=== PATIENT | male | born 1940 | race Caucasian/White ===

== ENCOUNTER 2023-06-19 04:13 | Inpatient (IN) | payer MEDICARE, OTHER ==
[2023-06-19 04:35] LABS: Glucose,Whole Blood 104 mg/dL (70-110)
[2023-06-19] MEDS ORDERED: IPRATROPIUM-ALBUTEROL 3 ML NEB INHALATION STA (04:35)
[2023-06-19] MEDS ORDERED: fentaNYL (PF) 50 MCG/ML 2 ML AMP IVP STA (04:41)
--- NOTE | 2023-06-19 04:59 | ED ---
Fall HPI - General Chief Complaint: Fall Stated Complaint: Fall Time Seen by Provider: 06/19/23 04:30 Source: patient, EMS Mode of arrival: EMS - History of Present Illness Initial Comments: 83-year-old male with past medical history of possible dementia, nicotine abuse who presents to the emergency department for possible hip fracture. Patient was found outside in a small ditch. He was complaining of left hip pain. He had told fire that he was from [place] however they were able to identify the man and noted that he was approximately half mile from his residence. Son does present to the emergency department and states that his dad does have some confusion at baseline however the confusion gets significantly worse in the evening after he takes a sleeping medication. Patient had awoke around 1:30 AM and was restless. Son was able to get back in the bed. He then went to sleep himself. He was awoken at 4:00 this morning when please called in to say that his father had gotten out of the house and was found in a ditch. Patient is able to answer some questions appropriately. Denies any head or neck pain. Does admit to low back pain. EMS gave him 4 mg of Zofran for his nausea but did not provide any pain medications. Patient is found to be hypoxic upon presentation. No use of oxygen at home. No other alleviating, precipitating or modifying factors - Related Data Home Medications Medication Instructions Recorded Confirmed Candesartan [Atacand] 16 mg PO HS 06/19/23 06/19/23 Doxazosin [Cardura] 4 mg PO HS 06/19/23 06/19/23 Eszopiclone 3 mg PO HS 06/19/23 06/19/23 Simvastatin [Zocor] 10 mg PO HS 06/19/23 06/19/23 Allergies Allergy/AdvReac Type Severity Reaction Status Date / Time No Known Allergies Allergy Unverified 06/19/23 06:50 Review of Systems ROS Statement: Those systems with pertinent positive or pertinent negative responses have been documented in the HPI. ROS Other: All systems not noted in ROS Statement are negative. Past Medical History Past Medical History: Unable to Obtain History of Any Multi-Drug Resistant Organisms: Unobtainable Past Surgical History: Unable to Obtain Past Psychological History: Unable to Obtain Smoking Status: Unknown if ever smoked Past Alcohol Use History: Unable to Obtain Past Drug Use History: Unable to Obtain General Exam Limitations: altered mental status General appearance: alert, other (in pain) Head exam: Present: atraumatic, normocephalic, normal inspection Eye exam: Present: conjunctival injection (left eye with exudate) Neck exam: Present: normal inspection. Absent: tenderness, meningismus, lymphadenopathy Respiratory exam: Present: decreased breath sounds, other (coarse breath sounds bilaterally) Cardiovascular Exam: Present: normal rhythm, tachycardia GI/Abdominal exam: Present: soft, normal bowel sounds. Absent: distended, tenderness, guarding, rebound, rigid Extremities exam: Present: other (tenderness to left hip. left leg is shortened and rotated. 2+ DP and PT pulses) Course Vital Signs 06/19/23 06/19/23 06/19/23 04:26 04:39 04:45 Temperature 97.2 F L Pulse Rate 113 H 104 H 108 H Respiratory 22 Rate Blood Pressure 129/69 O2 Sat by Pulse 95 Oximetry 06/19/23 06/19/23 06/19/23 06:08 07:15 08:23 Temperature Pulse Rate 113 H 111 H Respiratory 24 20 Rate Blood Pressure 122/64 115/54 O2 Sat by Pulse 92 L 92 L 90 L Oximetry 06/19/23 08:31 Temperature Pulse Rate 111 H Respiratory 20 Rate Blood Pressure 104/53 O2 Sat by Pulse 89 L Oximetry - Reevaluation(s) Reevaluation #1: Spoke with Dr. Ceballos. Patient is a better candidate for a medicine admission 06/19/23 07:37 Medical Decision Making - Medical Decision Making Was pt. sent in by a medical professional or institution (, PA, PLANT MACHINIST, urgent care, hospital, or usp...) When possible be specific @ -[No] Did you speak to anyone other than the patient for history (EMS, parent, family, police, friend...)? What history was obtained from this source @ -EMS and son Did you review nursing and triage notes (agree or disagree)? Why? @ -[I reviewed and agree with nursing and triage notes] Were old charts reviewed (outside hosp., previous admission, EMS record, old EKG, old radiological studies, urgent care reports/EKG's, usp records)? Report findings @ -[No old charts were reviewed] Differential Diagnosis (chest pain, altered mental status, abdominal pain women, abdominal pain men, vaginal bleeding, weakness, fever, dyspnea, syncope, headache, dizziness, GI bleed, back pain, seizure, CVA, palpatations, mental health, musculoskeletal)? @ -Differential Altered Mental Status: Hypoglycemia, DKA, hypercapnia, ETOH, overdose, CO poisoning, trauma, myxedema coma, HTN encephalopathy, infection, encephalitis, psychosis, intercranial hemorrhage, hepatic encephalopathy, meningitis, CVA, this is not meant to be an all-inclusive list EKG interpreted by me (3pts min.). @ -Yes and demonstrates sinus tachycardia with a rate of 105. OR of 185. QRS 90. QTC 393. No acute ST segment elevations or depressions X-rays interpreted by me (1pt min.). @ -yes, XR Hip demonstrates left hip fracture CT interpreted by me (1pt min.). @ -CT of the brain demonstrates no acute intracranial process U/S interpreted by me (1pt. min.). @ -[None done] What testing was considered but not performed or refused? (CT, X-rays, U/S, labs)? Why? @ -Yes and family wants the patient did be a full code What meds were considered but not given or refused? Why? @ -[None] Did you discuss the management of the patient with other professionals (professionals i.e. , PA, PLANT MACHINIST, lab, RT, psych nurse, social services specialist, rpg programmer analyst, teacher, admitting officer, home health care case manager)? Give summary @ -Dr. Ceballos and Dr. Shelton Was smoking cessation discussed for >3mins.? @ -[No] Was critical care preformed (if so, how long)? @ -[No] Were there social determinants of health that impacted care today? How? (Homelessness, low income, unemployed, alcoholism, drug addiction, transportation, low edu. Level, literacy, decrease access to med. care, long term, rehab)? @ -dementia Was there de-escalation of care discussed even if they declined (Discuss DNR or withdrawal of care, Hospice)? DNR status @ -[No] What co-morbidities impacted this encounter? (DM, HTN, Smoking, COPD, CAD, Cancer, CVA, ARF, Chemo, Hep., AIDS, mental health diagnosis, sleep apnea, morbid obesity)? @ -[None] Was patient admitted / discharged? Hospital course, mention meds given and route, prescriptions, significant lab abnormalities, going to OR and other pertinent info. @ -Upon arrival patient was placed into room 5. A thorough history and physical exam was performed. I did obtain history from EMS. Son does present to the hospital and is able to provide further information. He has visible injury to the left hip. Patient is otherwise answering questions mostly appropriately. He is given 50 g of fentanyl. X-rays are performed of the patient's chest, pelvis, left hip. CAT scan was performed of the patient's brain and neck without acute injury or intracranial process. Results are discussed with the patient. I called and spoke with Dr. Ceballos. Patient will be admitted to medicine with orthopedics on consult. Accepting admitting physician is Dr. Shelton Undiagnosed new problem with uncertain prognosis? @ -yes Drug Therapy requiring intensive monitoring for toxicity (Heparin, Nitro, Insulin, Cardizem)? @ -[No] Were any procedures done? @ -[No] Diagnosis/symptom? @ -acute fall, left hip fracture Acute, or Chronic, or Acute on Chronic? @ -acute Uncomplicated (without systemic symptoms) or Complicated (systemic symptoms)? @ -complicated Side effects of treatment? @ -[No] Exacerbation, Progression, or Severe Exacerbation? @ -[No] Poses a threat to life or bodily function? How? (Chest pain, [place], [place], pneumonia, PE, COPD, DKA, ARF, appy, cholecystitis, CVA, Diverticulitis, Homicidal, Suicidal, threat to staff... and all critical care pts) @ -[No] - Lab Data Result diagrams: 06/19/23 04:54 06/19/23 04:54 Lab Results 06/19/23 06/19/23 06/19/23 Range/Units 04:34 04:54 04:54 WBC 12.1 H (3.8-10.6) k/uL RBC 4.29 L (4.30-5.90) m/uL Hgb 13.0 (13.0-17.5) gm/dL Hct 39.7 (39.0-53.0) % MCV 92.4 (80.0-100.0) fL MCH 30.3 (25.0-35.0) pg MCHC 32.7 (31.0-37.0) g/dL RDW 13.2 (11.5-15.5) % Plt Count 203 (150-450) k/uL MPV 7.5 Neutrophils % 82 % Lymphocytes % 9 % Monocytes % 6 % Eosinophils % 1 % Basophils % 0 % Neutrophils # 10.0 H (1.3-7.7) k/uL Lymphocytes # 1.1 (1.0-4.8) k/uL Monocytes # 0.7 (0-1.0) k/uL Eosinophils # 0.1 (0-0.7) k/uL Basophils # 0.0 (0-0.2) k/uL PT 10.6 (9.0-12.0) sec INR 1.0 (<1.2) APTT 22.2 (22.0-30.0) sec Sodium (137-145) mmol/L Potassium (3.5-5.1) mmol/L Chloride (98-107) mmol/L Carbon Dioxide (22-30) mmol/L Anion Gap mmol/L BUN (9-20) mg/dL Creatinine (0.66-1.25) mg/dL Est GFR (CKD-EPI)AfAm (>60 ml/min/1.73 sqM) Est GFR (CKD-EPI)NonAf (>60 ml/min/1.73 sqM) Glucose (74-99) mg/dL POC Glucose (mg/dL) 104 (70-110) mg/dL POC Glu Assistant Professor Of Philosophy ID Adam Agarwal Calcium (8.4-10.2) mg/dL Total Bilirubin (0.2-1.3) mg/dL AST (17-59) U/L ALT (4-49) U/L Alkaline Phosphatase (38-126) U/L Creatine Kinase (55-170) U/L Troponin I (0.000-0.034) ng/mL Total Protein (6.3-8.2) g/dL Albumin (3.5-5.0) g/dL Serum Alcohol mg/dL 06/19/23 06/19/23 Range/Units 04:54 04:54 WBC (3.8-10.6) k/uL RBC (4.30-5.90) m/uL Hgb (13.0-17.5) gm/dL Hct (39.0-53.0) % MCV (80.0-100.0) fL MCH (25.0-35.0) pg MCHC (31.0-37.0) g/dL RDW (11.5-15.5) % Plt Count (150-450) k/uL MPV Neutrophils % % Lymphocytes % % Monocytes % % Eosinophils % % Basophils % % Neutrophils # (1.3-7.7) k/uL Lymphocytes # (1.0-4.8) k/uL Monocytes # (0-1.0) k/uL Eosinophils # (0-0.7) k/uL Basophils # (0-0.2) k/uL PT (9.0-12.0) sec INR (<1.2) APTT (22.0-30.0) sec Sodium 141 (137-145) mmol/L Potassium 4.3 (3.5-5.1) mmol/L Chloride 107 (98-107) mmol/L Carbon Dioxide 27 (22-30) mmol/L Anion Gap 7 mmol/L BUN 17 (9-20) mg/dL Creatinine 0.95 (0.66-1.25) mg/dL Est GFR (CKD-EPI)AfAm 85 (>60 ml/min/1.73 sqM) Est GFR (CKD-EPI)NonAf 74 (>60 ml/min/1.73 sqM) Glucose 116 H (74-99) mg/dL POC Glucose (mg/dL) (70-110) mg/dL POC Glu Assistant Professor Of Philosophy ID Calcium 8.4 (8.4-10.2) mg/dL Total Bilirubin 0.6 (0.2-1.3) mg/dL AST 36 (17-59) U/L ALT 23 (4-49) U/L Alkaline Phosphatase 32 L (38-126) U/L Creatine Kinase 244 H (55-170) U/L Troponin I 0.018 (0.000-0.034) ng/mL Total Protein 6.7 (6.3-8.2) g/dL Albumin 3.8 (3.5-5.0) g/dL Serum Alcohol <10 mg/dL Disposition Clinical Impression: Fall, Fracture of femoral neck, left, Hypoxia, Pneumonia, Nicotine dependence, Encephalopathy acute Disposition: ADMITTED IP TO THIS HOSP Condition: Serious Is patient prescribed a controlled substance at d/c from ED?: No Time of Disposition: 07:40 Decision to Admit Reason: Admit from EC Decision Date: 06/19/23 Decision Time: 07:40
[2023-06-19 05:02] LABS: Basophils % (A) 0 %; Eosinophils # (A) 0.1 k/uL (0-0.7); Eosinophils % (A) 1 %; HCT 39.7 % (39.0-53.0); Lymphocytes # (A) 1.1 k/uL (1.0-4.8); Lymphocytes % (A) 9 %; MCH 30.3 pg (25.0-35.0); MCHC 32.7 g/dL (31.0-37.0); MCV 92.4 fL (80.0-100.0); Mean Platelet Volume 7.5; Monocytes # (A) 0.7 k/uL (0-1.0); Monocytes % (A) 6 %; Neutrophils % (A) 82 %; Platelet Count 203 k/uL (150-450); RBC 4.29 m/uL (4.30-5.90); RDW 13.2 % (11.5-15.5); WBC 12.1 k/uL (3.8-10.6)
[2023-06-19] MEDS ORDERED: HYDROmorphone 1 MG/ML 1 ML SYRINGE IVP STA (05:18)
[2023-06-19 05:32] LABS: ALT 23 U/L (4-49); AST 36 U/L (17-59); African American GFR (CKD) 85 (>60 ml/min/1.73 sqM); Albumin 3.8 g/dL (3.5-5.0); Alcohol <10 mg/dL; Alkaline Phosphatase 32 U/L (38-126); Anion Gap 7 mmol/L; Blood Urea Nitrogen 17 mg/dL (9-20); Calcium 8.4 mg/dL (8.4-10.2); Carbon Dioxide 27 mmol/L (22-30); Chloride 107 mmol/L (98-107); Creatine Kinase 244 U/L (55-170); Glucose 116 mg/dL (74-99); Non-African American GFR(CKD) 74 (>60 ml/min/1.73 sqM); Potassium 4.3 mmol/L (3.5-5.1); Sodium 141 mmol/L (137-145); Total Bilirubin 0.6 mg/dL (0.2-1.3); Total Protein 6.7 g/dL (6.3-8.2)
[2023-06-19 06:09] LABS: Partial Thromboplastin Time 22.2 sec (22.0-30.0); Prothrombin Time 10.6 sec (9.0-12.0)
--- NOTE | 2023-06-19 06:53 | XR ---
EXAMINATION TYPE: XR chest 1V portable DATE OF EXAM: 06/19/2023 6:00 AM COMPARISON: None TECHNIQUE: XR chest 1V portable Portable AP radiograph of the chest. CLINICAL INDICATION:Male, 83 years old with history of altered mental status; FINDINGS: Lungs/Pleura: No pleural effusion or pneumothorax. Patchy bilateral upper lung reticular opacities. H yperinflation. Senescent parenchyma change. Pulmonary vascularity: Unremarkable. Heart/mediastinum: Cardiomediastinal silhouette is unremarkable. Atherosclerotic calcifications are seen in the aorta. Musculoskeletal: No acute osseous pathology. IMPRESSION: 1. Patchy bilateral upper lung reticular opacities. Correlate for atypical pneumonia. 2. COPD changes.
--- NOTE | 2023-06-19 06:56 | XR ---
EXAMINATION TYPE: XR pelvis AP view DATE OF EXAM: 06/19/2023 6:00 AM INDICATION: Patient age:Male; 83 years old; Reason for study: found down; PHH. COMPARISON: None TECHNIQUE: The pelvis was examined in a single projection. FINDINGS: Acute mildly displaced fracture of the left proximal femoral neck. There is some shortening identified. No dislocation. Moderate bilateral osteoarthritic changes of both hips with medial and s uperior joint space narrowing with acetabular sclerosis and marginal osteophytosis. There is no soft tissue abnormality. No abnormal calcifications are present. Multilevel degenerative changes of the l ower spine. Levoscoliotic curvature of the visualized lumbar spine. Vascular sclerosis. IMPRESSION: 1. Acute mildly displaced fracture of the left proximal femoral neck. No dislocation. 2. Moderate osteoarthritic changes of both hips.
--- NOTE | 2023-06-19 06:58 | XR ---
EXAMINATION TYPE: XR Hip Complete LT DATE OF EXAM: 06/19/2023 6:00 AM INDICATION: Patient age:Male; 83 years old; Reason for study: fall, pain; PHH. COMPARISON: Pelvic radiograph the same date TECHNIQUE: The left hip was examined in the frontal and lateral projections. FINDINGS: Acute mildly displaced left proximal femoral neck fracture with shortening. Mild overlying soft tissue edema. Moderate osteoarthritic changes of the left hip with joint space narrowing, sclero sis, marginal asbestosis. No dislocation. Vascular sclerosis. IMPRESSION: Acute mildly displaced left proximal femoral neck fracture.
--- NOTE | 2023-06-19 07:00 | XR ---
EXAMINATION TYPE: XR lumbar spine 2 or 3V DATE OF EXAM: 06/19/2023 CLINICAL HISTORY: pain, fall TECHNIQUE: Three views of the lumbar spine are submitted. COMPARISON: None. FINDINGS: There are 5 lumbar type vertebral bodies identified. No acute fracture or dislocation. We will is gre ater curvature of the lumbar spine with apex at L3-L4. Vertebral body heights are within normal limit s. Moderate multilevel degenerative disc disease with disc space narrowing, endplate sclerosis, and a nterior osteophytosis. Multilevel facet arthropathy. The overlying soft tissue appears unremarkable. Atherosclerotic calcification of the aorta. IMPRESSION: 1. No acute fracture or dislocation is seen in the lumbar spine. 2. Moderate multilevel degenerative disc disease and facet arthropathy of the lumbar spine. 3. Levoscoliotic curvature of the lumbar spine.
--- NOTE | 2023-06-19 07:07 | CT ---
EXAMINATION TYPE: CT brain cspine wo con CT DLP: 1385.2 mGycm, Automated exposure control for dose reduction was used. DATE OF EXAM: 06/19/2023 5:34 AM COMPARISON: None available. CLINICAL INDICATION:Male, 83 years old with history of found down, confused; TECHNIQUE: Brain: Multiple axial CT images of the brain were obtained without IV contrast. Coronal and sagittal reformats were also reviewed. Cspine: Axial CT images from the skull base to the inferior aspect of T2 we obtained without intraven ous contrast. Coronal and sagittal reformatted images were also reviewed. FINDINGS: Brain: Extra-axial spaces: No abnormal extra-axial fluid collections. Ventricular system: Within normal limits Cerebral parenchyma: Cerebral atrophy. No acute intraparenchymal hemorrhage or mass effect. The chicas -white junction is well differentiated. Scattered hypoattenuating areas are seen within the white mat ter. Cerebellum: Unremarkable. Mass effect: No evidence of midline shift. Intracranial vasculature: Atherosclerotic calcifications of the intracranial vessels. Soft tissues: Normal. Calvarium/osseous structures: No depressed skull fracture. Paranasal sinuses and mastoid air cells: The mastoid air cells are clear. Mild mucosal thickening of the left maxillary sinus. Visualized orbits: Bilateral aphakia. Scleral calcifications noted. Cervical spine: Fracture: None. Osseous structures: Postsurgical changes from anterior cervical fusion of C5-C7. Hardware appears int act. Multilevel degenerative disc disease changes with endplate spurring and disc osteophyte complex' s. Multilevel facet arthropathy. There is formation involving the C1-C2 articulation. Likely large ge ode involving the dens. Vertebral alignment: Degenerative grade 1 anterolisthesis of C3 on C4, C4 and C5, and C7 on T1. Spinal canal/Neural Foramina: Disc osteophyte complexes at C6-C7 with at least mild spinal canal sten osis. Facet joint uncovertebral joint arthropathy scattered throughout the cervical spine with varyin g degrees of neural foraminal stenosis. Neck soft tissues: Prevertebral soft tissues are within normal limits. Other: The airway is patent. Left upper lobe calcified granuloma. Centrilobular emphysematous changes with biapical pleural-parenchymal scarring. Atherosclerotic calcifications of the bilateral carotid bulbs. IMPRESSION: 1. No acute intracranial process. 2. Nonspecific white matter changes, likely secondary to chronic small vessel ischemic disease. 3. No evidence of cervical spine fracture. 4. Postsurgical changes from ACDF C5-C7. Hardware appears intact. 5. Mild to moderate multilevel degenerative disc disease. 6. COPD changes.
[2023-06-19] MEDS ORDERED: PNEUMONIA PROTOCOL UTILIZED 1 EACH MISC PO PRN (07:45)
[2023-06-19] MEDS ORDERED: AZITHROMYCIN 500 MG in SODIUM CHLORIDE 0.9% 250 ML IVPB STA (07:45)
--- NOTE | 2023-06-19 08:32 | P.HPIM ---
History of Present Illness H&P Date: 06/19/23 Chief Complaint: Altered mental status See 3-year-old white male with known history of COPD chronic smoker who was found in a ditch this morning after he fell and escaped house. He been having altered mental status at home with elements of dementia/delirium. He has normal history of hyperlipidemia hypertension and is long-time smoker of about 50 pack year. The patient fell in addition broke his hip is now admitted for appropriate treatment. Workup in the ER did show pneumonia. History is obtained by the sons are with him today. Review of Systems ROS unobtainable: due to mental status Past Medical History Past Medical History: Unable to Obtain, Hyperlipidemia, Hypertension, Memory I mpairment History of Any Multi-Drug Resistant Organisms: Unobtainable Past Surgical History: Unable to Obtain Past Psychological History: Unable to Obtain Smoking Status: Unknown if ever smoked Past Alcohol Use History: Unable to Obtain Past Drug Use History: Unable to Obtain Medications and Allergies Home Medications Medication Instructions Recorded Confirmed Type Candesartan [Atacand] 16 mg PO HS 06/19/23 06/19/23 History Doxazosin [Cardura] 4 mg PO HS 06/19/23 06/19/23 History Eszopiclone 3 mg PO HS 06/19/23 06/19/23 History Simvastatin [Zocor] 10 mg PO HS 06/19/23 06/19/23 History Allergies Allergy/AdvReac Type Severity Reaction Status Date / Time No Known Allergies Allergy Unverified 06/19/23 06:50 Physical Exam Vitals: Vital Signs Temp Pulse Resp BP Pulse Ox 06/19/23 07:15 111 H 20 115/54 92 L 06/19/23 06:08 113 H 24 122/64 92 L 06/19/23 04:45 108 H 06/19/23 04:39 104 H 06/19/23 04:26 97.2 F L 113 H 22 129/69 95 Intake and Output 06/18/23 06/19/23 06/19/23 22:59 06:59 14:59 Other: Weight 58.967 kg - Constitutional General appearance: mild distress, thin - EENT Eyes: no abnormal pupil - Neck Neck: no lymphadenopathy - Respiratory Respiratory: bilateral: rhonchi - Cardiovascular Rhythm: regular Heart sounds: normal: S1, S2 Abnormal Heart Sounds: no S3 Gallop - Gastrointestinal General gastrointestinal: soft, no tenderness - Integumentary Integumentary: no cellulitis - Psychiatric Psychiatric: no A&O x's 3 Results CBC & Chem 7: 06/19/23 04:54 06/19/23 04:54 Labs: Abnormal Lab Results - Last 24 Hours (Table) 06/19/23 06/19/23 Range/Units 04:54 04:54 WBC 12.1 H (3.8-10.6) k/uL RBC 4.29 L (4.30-5.90) m/uL Neutrophils # 10.0 H (1.3-7.7) k/uL Glucose 116 H (74-99) mg/dL Alkaline Phosphatase 32 L (38-126) U/L Creatine Kinase 244 H (55-170) U/L Assessment and Plan (1) Fall Current Visit: Yes Status: Acute Code(s): W19.XXXA - UNSPECIFIED FALL, INITIAL ENCOUNTER SNOMED Code(s): 5627415 (2) Fracture of femoral neck, left Current Visit: Yes Status: Acute Code(s): S72.002A - FRACTURE OF UNSP PART OF NECK OF LEFT FEMUR, INIT SNOMED Code(s): 2426726 (3) Hypoxia Current Visit: Yes Status: Acute Code(s): R09.02 - HYPOXEMIA SNOMED Code(s): 673478330 (4) Nicotine dependence Current Visit: Yes Status: Acute Code(s): F17.200 - NICOTINE DEPENDENCE, UNSPECIFIED, UNCOMPLICATED SNOMED Code(s): 28276455 (5) Pneumonia Current Visit: Yes Status: Acute Code(s): J18.9 - PNEUMONIA, UNSPECIFIED ORGANISM SNOMED Code(s): 778921424 Plan: Stabilized respiratory status. Start empiric antibiotic treatment for acute acquired pneumonia. Orthopedics has also been consulted. Reconcile medications. Withhold any type of altered mental status side effect drugs. We'll check CBC and CMP in a.m. [facility] hospitalist will be covering for the weekend. Prognosis is guarded. Time with Patient: Greater than 30
[2023-06-19] MEDS: IPRATROPIUM-ALBUTEROL 3 ML NEB INHALATION SCH ×4 (09:03→20:28)
--- NOTE | 2023-06-19 10:39 | CT ---
EXAMINATION TYPE: CT hip LT wo con DATE OF EXAM: 06/19/2023 COMPARISON: Radiograph same day HISTORY: 83-year-old male surgical planning, Left hip pain TECHNIQUE: Contiguous axial scanning of the left hip without IV contrast. Coronal and sagittal recons tructions performed. CT DLP: 345.9 mGycm Automated exposure control for dose reduction was used. FINDINGS: Sigmoid diverticulosis. Severe atherosclerotic changes visualized left iliac artery. Urine distended bladder. Osteopenia. There is an impacted fracture of the left femoral neck. This extends from the subcapital region at th e superior femoral head neck junction and extends obliquely down to a along the inferior margin of th e femoral neck. There is associated impaction and proximal migration. Underlying mild to moderate degenerative changes of the left hip. IMPRESSION: 1. IMPACTED, OBLIQUE FRACTURE OF THE LEFT FEMORAL NECK. THE FRACTURE LINE EXTENDS FROM THE SUBCAPITAL REGION AT THE SUPERIOR FEMORAL HEAD NECK JUNCTION AND EXTENDS OBLIQUELY DOWN TO A BASICERVICAL LOCAT ION. 2. UNDERLYING MILD TO MODERATE LEFT HIP ONLY. 3. OSTEOPENIA.
[2023-06-19] MEDS: PANTOPRAZOLE 40 MG/10 ML VIAL IVP SCH (10:51)
[2023-06-19] MEDS: SODIUM CHLORIDE 0.9% 1,000 ML IV SCH (12:27)
--- NOTE | 2023-06-19 14:24 | P.CNPUL ---
History of Present Illness Consult date: 06/19/23 Reason for consult: dyspnea, COPD History of present illness: 83-year-old male patient with a history of dementia was brought into the emergency department after he was found outside and a small ditch. The patient was found approximately half a mile away from his residence. According to the family, the patient has dementia and episodes of confusion. usually, his symptoms of confusion and dementia get worse at nighttime. He was found in a ditch around 4 AM this morning. Prior to that, he was in his house. Upon arrival to the emergency department, the patient was having hip pain and he was unable to answer questions appropriately. He was given Dilaudid and fentanyl in the emergency department. At the time of my evaluation, the patient was quite somnolent and sleepy. He was unable to answer any questions. A chest x-ray was done and the patient was found to have chronic scarring and a lung apices bilaterally. There is no evidence of any pneumonia. The patient is known to have COPD and the patient was initially placed on 4 L of oxygen nasal cannula and he was brought up to 10 L as the patient was found to be hypoxic. No significant tachypnea. Hemodynamically stable. CAT scan of the brain was done and the patient was found to have no acute process. There was some chronic lung specific white matter changes along with chronic small vessel ischemic changes. No evidence of any cervical spine fracture. Multiple or multilevel degenerative changes involving the cervical spine.X-ray of the lumbosacral spine showed no evidence of any fracture. There was moderate multilevel degenerative disc changes and facet arthropathy of the lumbar spine along with levoscoliosis of the lumbar spine. X-ray of the hip showed a left proximal femoral neck fracture. Computed tomography scan of the head was also done and the patient was found to have a fracture of the left femoral neck and fracture line extending from the subcu region of the superior femoral Neck junction and there was underlying osteopenia. The patient has a WBC count 12.1. Hemoglobin is at 13. Normal cognition profile. Normal electrolytes. Normal troponins. CPK was 244. Alcohol level was negative. Review of Systems ROS unobtainable: due to mental status Past Medical History Past Medical History: Unable to Obtain, Dementia, Hyperlipidemia, Hypertension, Prostate Disorder History of Any Multi-Drug Resistant Organisms: Unobtainable Past Surgical History: Unable to Obtain Past Psychological History: Unable to Obtain Smoking Status: Unknown if ever smoked Past Alcohol Use History: Unable to Obtain Past Drug Use History: Unable to Obtain Medications and Allergies Home Medications Medication Instructions Recorded Confirmed Type Candesartan [Atacand] 16 mg PO HS 06/19/23 06/19/23 History Doxazosin [Cardura] 4 mg PO HS 06/19/23 06/19/23 History Eszopiclone 3 mg PO HS 06/19/23 06/19/23 History Simvastatin [Zocor] 10 mg PO HS 06/19/23 06/19/23 History Allergies Allergy/AdvReac Type Severity Reaction Status Date / Time No Known Allergies Allergy Unverified 06/19/23 06:50 Physical Exam Vitals: Vital Signs Temp Pulse Resp BP Pulse Ox 06/19/23 11:55 93 91/57 97 06/19/23 11:24 101 H 113/56 95 06/19/23 10:52 101 H 91/55 94 L 06/19/23 09:16 112 H 06/19/23 09:05 116 H 06/19/23 08:31 111 H 20 104/53 89 L 06/19/23 08:23 90 L 06/19/23 07:15 111 H 20 115/54 92 L 06/19/23 06:08 113 H 24 122/64 92 L 06/19/23 04:45 108 H 06/19/23 04:39 104 H 06/19/23 04:26 97.2 F L 113 H 22 129/69 95 Intake and Output 06/18/23 06/19/23 06/19/23 22:59 06:59 14:59 Other: Weight 58.967 kg Gen. appearance,, comfortable, under the effect of Dilaudid and fentanyl. The patient is quite lethargic, not following any commands or answering questions at this point in time on 10 L of oxygen nasal cannula Head exam was generally normal. There was no scleral icterus or corneal arcus. Mucous membranes were moist. Neck was supple and without jugular venous distension, thyromegaly, or carotid bruits. Carotids were easily palpable bilaterally. There was no adenopathy. Lungs sounds are diminished bilaterally and the breath sounds are equal and symmetrical. Cardiac exam revealed the PMI to be normally situated and sized. The rhythm was regular and no extrasystoles were noted during several minutes of auscultation. The first and second heart sounds were normal and physiologic splitting of the second heart sound was noted. There were no murmurs, rubs, clicks, or gallops. Abdominal exam revealed normal bowel sounds. The abdomen was soft, non-tender, and without masses, organomegaly, or appreciable enlargement of the abdominal aorta. Extremities shows that the left lower extremity is externally rotated due to underlying hip fracture. Neurologically, moving all 4 extremities and the exam is nonfocal. Pupils are equal and reactive to light. Examination of the skin revealed no evidence of significant rashes, suspicious appearing nevi or other concerning lesions. Results - Laboratory Findings CBC and BMP: 06/19/23 04:54 06/19/23 04:54 PT/INR, D-dimer PT 10.6 sec (9.0-12.0) 06/19/23 04:54 INR 1.0 (<1.2) 06/19/23 04:54 Abnormal lab findings: Abnormal Labs 06/19/23 06/19/23 04:54 04:54 WBC 12.1 H RBC 4.29 L Neutrophils # 10.0 H Glucose 116 H Alkaline Phosphatase 32 L Creatine Kinase 244 H - Diagnostic Findings Chest x-ray: image reviewed Assessment and Plan Plan: Traumatic left femoral neck fracture, post fall Acute hypoxic respiratory failure and the patient is currently on 10 L of oxygen by nasal cannula. Chest x-ray showing biapical scarring and background COPD. The patient was given narcotics for pain control. No clear signs of hypoventilation at this point in time. No clear signs of aspiration. 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 Plan Titrate oxygen flow to maintain a saturation above 90% Limited use of narcotic medications and avoid hypoventilation Patient was started on broad-spectrum antibiotics Continue DuoNeb updrafts [id number] Heparin subcu portably prophylaxis IV fluids with normal saline at rate of 100 mL an hour IV Protonix Orthopedic surgery consultation We'll continue to follow
[2023-06-19] MEDS: LORazepam 2 MG/ML INJ IV PRN (15:44)
[2023-06-19] MEDS ORDERED: LORazepam 2 MG/ML INJ IV SCH (16:00)
[2023-06-19 17:31] LABS: Appearance,Urine Clear (Clear); Bilirubin,Urine Negative (Negative); Blood,Urine Negative (Negative); Color,Urine Yellow; Glucose,Urine (UA) Negative (Negative); Ketones,Urine Negative (Negative); Leukocyte Esterase,Urine Negative (Negative); Nitrite,Urine Negative (Negative); PH, Urine 5.5 (5.0-8.0); Protein,Urine Trace (Negative); Specific Gravity,Urine 1.025 (1.001-1.035); Urobilinogen,Urine <2.0 mg/dL (<2.0)
[2023-06-19] MEDS ORDERED: HEPARIN SODIUM,PORCINE/PF 5,000 UNIT/0.5 ML SYRINGE SQ SCH (21:00)
[2023-06-19] MEDS: LOSARTAN 50 MG TAB PO SCH (21:24)
[2023-06-19] MEDS: ATORVASTATIN 10 MG TAB PO SCH (21:24)
[2023-06-19] MEDS: DOXAZOSIN 4 MG TAB PO SCH (21:24)
[2023-06-20] MEDS: SODIUM CHLORIDE 0.9% 1,000 ML IV SCH ×3 (00:54→17:01)
[2023-06-20] MEDS: HEPARIN SODIUM,PORCINE 5,000 UNIT/ML 1 ML VIAL SQ SCH ×3 (00:58→20:32)
[2023-06-20] MEDS: LORazepam 2 MG/ML INJ IV PRN ×2 (05:02→09:31)
--- NOTE | 2023-06-20 07:37 | P.CNOR ---
History of Present Illness - [facility] Consult date: 06/20/23 History of present illness: The patient is an 83-year-old male who was admitted to internal medicine with multiple medical problems and a left hip fracture. The patient has advanced dementia and is also delirious and was unable to provide any history. All history was obtained from the chart and patient's nurse. Apparently the patient is sleeping pill and wandered out of his house. He fell and was found in a ditch. He was brought into the emergency department where he was found to have a left subcapital femoral neck fracture. He also had oxygen saturations in the 70s requiring oxygen supplementation and pneumonia. Because of his frail state and multiple medical problems he was admitted to internal medicine. Past Medical History Past Medical History: Unable to Obtain, Dementia, Hyperlipidemia, Hypertension, Prostate Disorder History of Any Multi-Drug Resistant Organisms: Unobtainable Past Surgical History: Unable to Obtain Past Psychological History: Unable to Obtain Smoking Status: Unknown if ever smoked Past Alcohol Use History: Unable to Obtain Past Drug Use History: Unable to Obtain Medications and Allergies Home Medications Medication Instructions Recorded Confirmed Type Candesartan [Atacand] 16 mg PO HS 06/19/23 06/19/23 History Doxazosin [Cardura] 4 mg PO HS 06/19/23 06/19/23 History Eszopiclone 3 mg PO HS 06/19/23 06/19/23 History Simvastatin [Zocor] 10 mg PO HS 06/19/23 06/19/23 History Allergies Allergy/AdvReac Type Severity Reaction Status Date / Time No Known Allergies Allergy Unverified 06/19/23 06:50 Physical Examination Patient is resting in bed. He will grimace with pain and open his eyes to command but does not answer any questions. His head is normocephalic and atraumatic. His abdomen is nonobese. There are no obvious deformities of the bilateral upper extremities and right lower extremity. The left lower extremity is shortened and external rotated. There is pain with logroll. There are no lesions or scars over the anterior aspect of the hip. His thigh and calf are soft. Results X-rays and computed tomography scan of the left hip show a subcapital femoral neck fracture superiorly extending into the transcervical region of the neck. There is diffuse osteopenia and degenerative changes within the hip. - Labs Labs: Abnormal Lab Results - Last 24 Hours (Table) 06/19/23 Range/Units 17:08 Urine Protein Trace H (Negative) H & H 06/19/23 Range/Units 04:54 Hgb 13.0 (13.0-17.5) gm/dL Hct 39.7 (39.0-53.0) % Coagulation 06/19/23 Range/Units 04:54 INR 1.0 (<1.2) Result Diagrams: 06/19/23 04:54 06/19/23 04:54 Assessment and Plan Assessment: Acute left femoral neck fracture Advanced dementia Pneumonia COPD Acute respiratory failure Plan: The patient is medically stable and the family wishes to proceed my recommendation would be to address his left femoral neck fracture with a cement ed hemiarthroplasty. This will allow for mobilization and be palliative. Patient is certainly at high risk for surgical complications including perioperative medical complications and . The family has requested cardiac clearance. Once the patient is cleared for surgery we will proceed. In the interim he should remain nonweightbearing on the left lower extremity and should be on bedrest.
[2023-06-20] MEDS: IPRATROPIUM-ALBUTEROL 3 ML NEB INHALATION SCH ×4 (08:05→21:10)
[2023-06-20] MEDS: PANTOPRAZOLE 40 MG/10 ML VIAL IVP SCH (08:36)
[2023-06-20] MEDS: AZITHROMYCIN 500 MG TAB PO SCH (08:36)
--- NOTE | 2023-06-20 08:53 | XR ---
EXAMINATION TYPE: XR chest 1V portable DATE OF EXAM: 06/20/2023 COMPARISON: 06/19/2023 INDICATION: Pneumonia presurgical clearance TECHNIQUE: Single frontal view of the chest is obtained. FINDINGS: The heart size is normal. The pulmonary vasculature is normal. There is some linear opacity at the right base compatible some atelectasis. Increased infiltrates at the right lower lobe. Small right pleural effusion is present. IMPRESSION: 1. Suggestion of a small right pleural effusion. 2. Some linear opacity at the right base can be some developing atelectasis. There is increased infil trate at the left base. Correlate for pneumonia and aspiration pneumonia.
[2023-06-20 09:13] LABS: HCT 38.5 % (39.6-50.0); HGB 11.9 d/dL (13.0-17.0); MCHC 30.9 d/dL (32.0-37.0); Mean Platelet Volume 10.2 FL (9.5-12.2); NRBC Per 100 WBC 0 X 10*3/uL (0.00-0.01); Platelet Count 174 X 10*3/uL (140-440); RBC 3.97 X 10*6/uL (4.40-5.60); RDW 13.2 % (11.5-14.5); WBC 12.52 X 10*3/uL (4.50-10.00)
[2023-06-20 09:22] LABS: ALT 24 U/L (10-49); AST 93 U/L (14-35); Albumin 3.3 d/dL (3.8-4.9); Albumin/Globulin Ratio 1.43 Ratio (1.60-3.17); Alkaline Phosphatase 20 U/L (41-126); BUN/Creat Ratio 16.58 Ratio (12.00-20.00); Blood Urea Nitrogen 19.9 mg/dL (9.0-27.0); Calcium 8.2 mg/dL (8.7-10.3); Carbon Dioxide 27.6 mmol/L (21.6-31.8); Chloride 107 mmol/L (96-109); Globulin 2.3 d/dL (1.6-3.3); Glucose 98 mg/dL (70-110); Potassium 4.9 mmol/L (3.5-5.5); Sodium 144 mmol/L (135-145); Total Bilirubin 0.6 mg/dL (0.3-1.2); Total Protein 5.6 d/dL (6.2-8.2)
[2023-06-20] MEDS: METOPROLOL TARTRATE 25 MG TAB PO SCH ×2 (10:13→20:32)
[2023-06-20] MEDS ORDERED: METOPROLOL TARTRATE 5 MG/5 ML VIAL IVP ONE (10:30)
--- NOTE | 2023-06-20 12:26 | P.CRDCN ---
History of Present Illness History of present illness: HISTORY OF PRESENT ILLNESS: This is a 83-year-old male with a past medical history significant for hypertension, hyperlipidemia, and dementia. Patient does not follow with a box spring maker. We have been asked to see the patient in consultation for cardiac clearance. Patient examined at the bedside. Patient is obtunded and unable to provide any history. Patient's son is at the bedside and providing the majority of the HPI. He states that the patient has advanced dementia. He lives with one of his other sons and got out of the house in the middle of the night and walked over to the neighbor's house. He apparently fell and landed on the concrete. The patient was found to have a left hip fracture and is pending orthopedic surgical intervention. The patient's son denies any history of coronary artery disease, congestive heart failure, or arrhythmia such as atrial fibrillation. EKG reveals sinus mechanism. On telemetry, patient is in sinus rhythm with runs of atrial tachycardia with heart rates going into the [id number]. The patient is currently unable to take oral medications. * Chest xray suggestive of small right pleural effusion. Some linear opacity at the right base can be some developing atelectasis. There is increased infiltrate at the left base. Correlate for pneumonia and aspiration pneumonia. * Laboratory data: WBC 12.5. Hemoglobin 11.9. Platelet count 174. Sodium 144. Potassium 4.9. BUN 19. Creatinine 1.2. Troponin negative 3. ProBNP 382. * Current home cardiac medications include simvastatin 10 mg at night, and Sindi sartan 16mg at HS REVIEW OF SYSTEMS: At the time of my exam: Unable to assess secondary to altered mental status PHYSICAL EXAM: VITAL SIGNS: Reviewed. GENERAL: Well-developed in no acute distress. HEENT: Head is normocephalic. Pupils are equal, round. Sclerae anicteric. Mucous membranes of the mouth are moist. Neck supple. No JVD or thyromegaly LUNGS: Respirations even and unlabored. Lungs essentially clear to auscultation bilaterally. HEART: Regular rate and rhythm. S1 and S2 heard. ABDOMEN: Soft. Nondistended. Nontender. EXTREMITIES: Normal range of motion. No clubbing or cyanosis. Peripheral pulses intact. No lower extremity edema NEUROLOGIC: Obtunded. ASSESSMENT: Left femoral neck fracture, status post fall Acute hypoxic respiratory failure Possible pneumonia Sinus mechanism with runs of atrial tachycardia with heart rates [id number] Hypertension Hyperlipidemia Advanced dementia COPD PLAN: Obtain 2-D echo to assess cardiac structure and function Resume home cardiac medications When patient is able to tolerate oral medications give metoprolol tartrate 25 mg twice a day. Metoprolol tartrate 2.5 mg IV push every 6 hours when necessary as needed for heart rates greater than 120 Recommend transfer to 3 S. as RN on 4S are not able to give IVP metoprolol Patient is at high risk to undergo surgical intervention from a cardiac standpoint. However there are no absolute contraindications. Nurse practitioner note has been reviewed by physician. Signing provider agrees with the documented findings, assessment, and plan of care. Past Medical History Past Medical History: Unable to Obtain, Dementia, Hyperlipidemia, Hypertension, Prostate Disorder History of Any Multi-Drug Resistant Organisms: Unobtainable Past Surgical History: Unable to Obtain Past Psychological History: Unable to Obtain Smoking Status: Unknown if ever smoked Past Alcohol Use History: Unable to Obtain Past Drug Use History: Unable to Obtain Medications and Allergies Home Medications Medication Instructions Recorded Confirmed Type Candesartan [Atacand] 16 mg PO HS 06/19/23 06/19/23 History Doxazosin [Cardura] 4 mg PO HS 06/19/23 06/19/23 History Eszopiclone 3 mg PO HS 06/19/23 06/19/23 History Simvastatin [Zocor] 10 mg PO HS 06/19/23 06/19/23 History Allergies Allergy/AdvReac Type Severity Reaction Status Date / Time No Known Allergies Allergy Unverified 06/19/23 06:50 Physical Exam Vitals: Vital Signs Temp Pulse Pulse Resp BP BP Pulse Ox 06/20/23 12:09 86 06/20/23 10:21 94 L 06/20/23 08:20 92 06/20/23 08:05 89 97 06/20/23 07:42 99.6 F 90 20 118/66 96 06/20/23 02:00 98.2 F 100 17 118/64 100 06/19/23 20:39 102 H 06/19/23 20:31 102 H 06/19/23 19:00 101.2 F H 114 H 17 112/60 98 06/19/23 17:06 104 H 121/66 96 06/19/23 16:23 102 H 06/19/23 16:11 100 06/19/23 15:42 104 H 18 100/69 95 06/19/23 12:35 98 06/19/23 12:24 98 97/56 97 06/19/23 12:23 100 Intake and Output 06/19/23 06/20/23 06/20/23 22:59 06:59 14:59 Output Total 650 Balance -650 Output: Urine 650 Other: Voiding Method Indwelling Catheter Indwelling Catheter Results 06/20/23 05:34 06/20/23 05:34 Cardiac Enzymes 06/20/23 Range/Units 05:34 AST 93 H (14-35) U/L CBC 06/20/23 Range/Units 05:34 WBC 12.52 H (4.50-10.00) X 10*3/uL RBC 3.97 L (4.40-5.60) X 10*6/uL Hgb 11.9 L (13.0-17.0) d/dL Hct 38.5 L (39.6-50.0) % Plt Count 174 (140-440) X 10*3/uL Comprehensive Metabolic Panel 06/20/23 Range/Units 05:34 Sodium 144 (135-145) mmol/L Potassium 4.9 (3.5-5.5) mmol/L Chloride 107 (96-109) mmol/L Carbon Dioxide 27.6 (21.6-31.8) mmol/L BUN 19.9 (9.0-27.0) mg/dL Creatinine 1.2 (0.6-1.5) mg/dL Glucose 98 (70-110) mg/dL Calcium 8.2 L (8.7-10.3) mg/dL AST 93 H (14-35) U/L ALT 24 (10-49) U/L Alkaline Phosphatase 20 L (41-126) U/L Total Protein 5.6 L (6.2-8.2) d/dL Albumin 3.3 L (3.8-4.9) d/dL Current Medications Generic Name Dose Route Start Last Admin Trade Name Freq PRN Reason Stop Dose Admin Albuterol/Ipratropium 3 ml 06/20/23 08:00 06/20/23 12:09 Ipratropium-Albuterol 3 Ml Neb INHALATION 3 ml RT-QID GARY Administration Atorvastatin Calcium 10 mg 06/19/23 21:00 06/19/23 21:24 Atorvastatin 10 Mg Tab PO Not Given HS GARY Azithromycin 500 mg 06/20/23 09:00 06/20/23 08:36 Azithromycin 500 Mg Tab PO 06/21/23 09:01 Not Given DAILY [facility] Protocol Doxazosin Mesylate 4 mg 06/19/23 21:00 06/19/23 21:24 Doxazosin 4 Mg Tab PO Not Given HS GARY Heparin Sodium (Porcine) 5,000 unit 06/19/23 21:00 06/20/23 08:36 Heparin Sodium,Porcine 5,000 Unit/Ml 1 Ml Vial SQ Not Given Q12HR GARY Ceftriaxone Sodium 2 gm/ 50 mls @ 100 mls/hr 06/20/23 09:00 06/20/23 08:36 Sodium Chloride IVPB 06/23/23 09:29 100 mls/hr Q24HR GARY Administration Protocol Sodium Chloride 1,000 mls @ 100 mls/hr 06/19/23 12:30 06/20/23 08:35 Saline 0.9% IV 100 mls/hr .Q10H GARY Administration Lorazepam 1 mg 06/19/23 15:28 06/20/23 09:31 Lorazepam 2 Mg/Ml Inj IV 1 mg Q8HR PRN Administration Agitation Losartan Potassium 100 mg 06/19/23 21:00 06/19/23 21:24 Losartan 50 Mg Tab PO Not Given HS [facility] Metoprolol Tartrate 25 mg 06/20/23 09:45 06/20/23 10:13 Metoprolol Tartrate 25 Mg Tab PO Not Given BID [facility] Metoprolol Tartrate 2.5 mg 06/20/23 12:11 Metoprolol Tartrate 5 Mg/5 Ml Vial IVP Q6HR PRN Heart Rate - HIGH Miscellaneous Information 1 each 06/19/23 07:45 Pneumonia Protocol Utilized 1 Each Misc PO ONCE PRN Per Protocol Pantoprazole Sodium 40 mg 06/19/23 09:00 06/20/23 08:36 Pantoprazole 40 Mg/10 Ml Vial IVP 40 mg DAILY GARY Administration Intake and Output 06/19/23 06/20/23 06/20/23 22:59 06:59 14:59 Output Total 650 Balance -650 Output: Urine 650 Other: Voiding Method Indwelling Catheter Indwelling Catheter 06/20/23 05:34 06/20/23 05:34
--- NOTE | 2023-06-20 13:54 | P.PN ---
Subjective Progress Note Date: 06/20/23 * 83-year-old male patient with a history of dementia was brought into the emergency department after a fall at home * Upon arrival to the emergency department, the patient was having hip pain and he was unable to answer questions appropriately. * The patient has COPD and the patient was initially placed on 4 L of oxygen nasal cannula and he was brought up to 10 L as the patient was found to be hypoxic. * CAT scan of the brain was done and the patient was found to have no acute process. There was some chronic lung specific white matter changes along with chronic small vessel ischemic changes. No evidence of any cervical spine fracture. Multiple or multilevel degenerative changes involving the cervical spine * X-ray of the lumbosacral spine showed no evidence of any fracture. * Computed tomography scan of the head was also done and the patient was found to have a fracture of the left femoral neck and fracture line extending from the subcu region of the superior femoral Neck junction and there was underlying osteopenia. * Consultation obtained from orthopedic, pulmonary medicine and cardiology for preoperative assessment * 06/20>> patient was weaned down to 4 L of oxygen, patient continues to remain disoriented, patient was agitated through the night does have underlying cognitive impairment however does not have a and O's as of dementia. Patient had one episode of atrial tachycardia. We will continue to monitor overnight if oxygen requirements remained stable, and echocardiogram within normal limits okay to proceed with surgery on 06/21, risk of patient getting intubated postprocedure already discussed with patient's son at bedside, at this point delaying surgery more than 24-48 hours with a fracture has a very high mortality hence if patient remains stable we will proceed with surgery on 06/21/23 Objective - Vital Signs Vital signs: Vital Signs Temp 99.6 F 06/20/23 07:42 Pulse 88 06/20/23 12:20 Resp 20 06/20/23 07:42 BP 118/66 06/20/23 07:42 Pulse Ox 94 L 06/20/23 12:13 FiO2 Intake & Output 06/19/23 06/20/23 06/20/23 18:59 06:59 18:59 Output Total 650 Balance -650 Weight 58.967 kg Output: Urine 650 Other: Voiding Method Indwelling Catheter Indwelling Catheter - Exam PHYSICAL EXAMINATION: GENERAL: Ill appearance, disoriented, minimally responsive, breathing maintaining HEENT: Pupils are pinpoint however reactive, discharge noted from eyelids CARDIOVASCULAR: S1 and S2 present. No murmurs, rubs, or gallops. PULMONARY: Nasal cannula in place, no use of accessory muscle, breath sounds equal and symmetrical bilateral ABDOMEN: Soft, nontender, nondistended, normoactive bowel sounds. No palpable organomegaly. MUSCULOSKELETAL: Left pelvic/hip edema NEUROLOGICAL: Patient disoriented, exam limited - Labs CBC & Chem 7: 06/20/23 05:34 06/20/23 05:34 Labs: Abnormal Lab Results - Last 24 Hours (Table) 06/19/23 06/20/23 06/20/23 Range/Units 17:08 05:34 05:34 WBC 12.52 H (4.50-10.00) X 10*3/uL RBC 3.97 L (4.40-5.60) X 10*6/uL Hgb 11.9 L (13.0-17.0) d/dL Hct 38.5 L (39.6-50.0) % MCHC 30.9 L (32.0-37.0) d/dL Calcium 8.2 L (8.7-10.3) mg/dL AST 93 H (14-35) U/L Alkaline Phosphatase 20 L (41-126) U/L Total Protein 5.6 L (6.2-8.2) d/dL Albumin 3.3 L (3.8-4.9) d/dL Albumin/Globulin Ratio 1.43 L (1.60-3.17) Ratio Urine Protein Trace H (Negative) Assessment and Plan Assessment: Assessment and plan * Status post fall with left hip fracture * Acute exacerbation of COPD, with acute hypoxic respiratory failure * Community-acquired pneumonia * Atrial tachycardia paroxysmal * Hypertension * Hyperlipidemia * Cognitive impairment with suspicion for dementia however no official diagnosis * Consult on patient obtained from pulmonary medicine, cardiology for preoperative assessment> echocardiogram pending, weaned down to 4 L of oxygen if patient remains stable okay to proceed with surgery on 06/21 * In regards to acute respiratory failure, continue patient on breathing treatment, continue Rocephin and azithromycin, pulmonary medicine following * In regards to atrial tachycardia patient given 1 dose of IV Lopressor * Patient does have cognitive impairment with agitation when necessary Ativan ordered as needed for acute agitation * Subcu heparin for DVT prophylaxis
[2023-06-20] MEDS ORDERED: METOPROLOL TARTRATE 5 MG/5 ML VIAL IVP PRN (14:06)
--- NOTE | 2023-06-20 16:00 | P.PN ---
Subjective Progress Note Date: 06/20/23 83-year-old male patient with a history of dementia was brought into the emergency department after he was found outside and a small ditch. The patient was found approximately half a mile away from his residence. According to the family, the patient has dementia and episodes of confusion. usually, his symptoms of confusion and dementia get worse at nighttime. He was found in a ditch around 4 AM this morning. Prior to that, he was in his house. Upon arrival to the emergency department, the patient was having hip pain and he was unable to answer questions appropriately. He was given Dilaudid and fentanyl in the emergency department. At the time of my evaluation, the patient was quite somnolent and sleepy. He was unable to answer any questions. A chest x-ray was done and the patient was found to have chronic scarring and a lung apices bilaterally. There is no evidence of any pneumonia. The patient is known to have COPD and the patient was initially placed on 4 L of oxygen nasal cannula and he was brought up to 10 L as the patient was found to be hypoxic. No significant tachypnea. Hemodynamically stable. CAT scan of the brain was done and the patient was found to have no acute process. There was some chronic lung specific white matter changes along with chronic small vessel ischemic changes. No evidence of any cervical spine fracture. Multiple or multilevel degenerative changes involving the cervical spine.X-ray of the lumbosacral spine showed no evidence of any fracture. There was moderate multilevel degenerative disc changes and facet arthropathy of the lumbar spine along with levoscoliosis of the lumbar spine. X-ray of the hip showed a left proximal femoral neck fracture. Computed tomography scan of the head was also done and the patient was found to have a fracture of the left femoral neck and fracture line extending from the subcu region of the superior femoral Neck junction and there was underlying osteopenia. The patient has a WBC count 12.1. Hemoglobin is at 13. Normal cognition profile. Normal electrolytes. Normal troponins. CPK was 244. Alcohol level was negative. On today's evaluation, the patient remains somnolent, lethargic, still unable to communicate. The patient has underlying dementia. The patient is currently down to 4 L of oxygen by nasal cannula. The patient was supposed to undergo surgery today. This was postponed to tomorrow. He is going to undergo a left hip ORIF. He did have an episode of atrial tachycardia for which he was given beta blockers. As mentioned earlier, he has significant cognitive impairments. Is related to his underlying dementia. The white cell count is at 12.5 with a hemoglobin 11.9 and a platelet count of 174. BUN is 19 with a creatinine 1.2 and his sodium levels is 144. UA is negative. Alcohol level is negative. LFTs are normal. CPKs 244. Chest x-ray shows COPD and is also limited bibasilar pulmonary infiltrates and the patient is currently on accommodation of Rocephin and Zithromax. He is also on DuoNeb nebulized treatments [id number]. IV fluids are running at a rate of 100 mL an hour. The patient is running a low- grade fever.The patient was also seen by cardiology. The patient was started on the Toprol 25 mg twice a day. The patient is sinus mechanism with atrial tachycardia and he was given IV Lopressor. Objective - Vital Signs Vital signs: Vital Signs Temp 99.6 F 06/20/23 07:42 Pulse 92 06/20/23 08:20 Resp 20 06/20/23 07:42 BP 118/66 06/20/23 07:42 Pulse Ox 94 L 06/20/23 10:21 FiO2 Intake & Output 06/19/23 06/20/23 06/20/23 18:59 06:59 18:59 Output Total 650 Balance -650 Weight 58.967 kg Output: Urine 650 Other: Voiding Method Indwelling Catheter Indwelling Catheter - Exam Gen. appearance,, comfortable, currently on 4 L of oxygen by nasal cannula. Lethargic, encephalopathic. Head exam was generally normal. There was no scleral icterus or corneal arcus. Mucous membranes were moist. Neck was supple and without jugular venous distension, thyromegaly, or carotid bruits. Carotids were easily palpable bilaterally. There was no adenopathy. Lungs sounds are diminished bilaterally and the breath sounds are equal and symmetrical. Cardiac exam revealed the PMI to be normally situated and sized. The rhythm was regular and no extrasystoles were noted during several minutes of auscultation. The first and second heart sounds were normal and physiologic splitting of the second heart sound was noted. There were no murmurs, rubs, clicks, or gallops. Abdominal exam revealed normal bowel sounds. The abdomen was soft, non-tender, and without masses, organomegaly, or appreciable enlargement of the abdominal aorta. Extremities shows that the left lower extremity is externally rotated due to underlying hip fracture. Neurologically, moving all 4 extremities and the exam is nonfocal. Pupils are equal and reactive to light. Examination of the skin revealed no evidence of significant rashes, suspicious appearing nevi or other concerning lesions. - Labs CBC & Chem 7: 06/20/23 05:34 06/20/23 05:34 Labs: Abnormal Lab Results - Last 24 Hours (Table) 06/19/23 06/20/23 06/20/23 Range/Units 17:08 05:34 05:34 WBC 12.52 H (4.50-10.00) X 10*3/uL RBC 3.97 L (4.40-5.60) X 10*6/uL Hgb 11.9 L (13.0-17.0) d/dL Hct 38.5 L (39.6-50.0) % MCHC 30.9 L (32.0-37.0) d/dL Calcium 8.2 L (8.7-10.3) mg/dL AST 93 H (14-35) U/L Alkaline Phosphatase 20 L (41-126) U/L Total Protein 5.6 L (6.2-8.2) d/dL Albumin 3.3 L (3.8-4.9) d/dL Albumin/Globulin Ratio 1.43 L (1.60-3.17) Ratio Urine Protein Trace H (Negative) Assessment and Plan Plan: Traumatic left femoral neck fracture, post fall Acute hypoxic respiratory failure and the patient is currently on 4 L of oxygen by nasal cannula. Chest x-ray showing biapical scarring and background COPD. The patient was given narcotics for pain control. No clear signs of hypoventilation at this point in time. No clear signs of aspiration. 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 Atrial tachycardia, currently on IV Lopressor [id number] and less tachycardic Encephalopathy with ongoing altered mentation. Fever likely secondary to above Plan Titrate oxygen flow to maintain a saturation above 90%, currently on 4 L Limited use of narcotic medications and avoid hypoventilation Monitor mental status Patient was started on broad-spectrum antibiotics, currently on a combination of Rocephin and Zithromax Continue DuoNeb updrafts [id number] Heparin subcu portably prophylaxis IV fluids with normal saline at rate of 100 mL an hour IV Protonix Orthopedic surgery consultation High risk for developing postoperative pulmonary complications as discussed with the family at the bedside CODE STATUS remains full Echocardiogram Cardiology evaluation We'll continue to follow
[2023-06-20] MEDS: HYDROmorphone 0.5 MG/0.5 ML SYRINGE IVP PRN (16:53)
--- NOTE | 2023-06-20 16:54 | CA ---
Transthoracic Echo Report Name: Zaire Davis Age: 83 Gender: M : 1940 Exam Date: 06/20/2023 09:48 Exam Location: [place] [facility] Ht (in): 68 Wt (lb): 130 Ordering Physician: Lida Dillon Attending/Referring Phys: Analysis Engineer Gretchen Meraz [facility] Procedure CPT: Indications: LV function, surgical clearance Cardiac Hx: Technical Quality: Technically difficult study Contrast 1: Total Dose (mL): Contrast 2: Total Dose (mL): MEASUREMENTS (Male / Female) Normal Values 2D ECHO LV Diastolic Diameter PLAX 3.4 cm 4.2 - 5.9 / 3.9 - 5.3 cm LV Systolic Diameter PLAX 2.5 cm IVS Diastolic Thickness 0.8 cm 0.6 - 1.0 / 0.6 - 0.9 cm LVPW Diastolic Thickness 0.7 cm 0.6 - 1.0 / 0.6 - 0.9 cm LV Relative Wall Thickness 0.4 DOPPLER AV Peak Velocity 95.7 cm/s AV Peak Gradient 3.7 mmHg AV Mean Velocity 74.0 cm/s AV Mean Gradient 2.4 mmHg AV Velocity Time Integral 17.2 cm LVOT Peak Velocity 75.4 cm/s LVOT Peak Gradient 2.3 mmHg LVOT Velocity Time Integral 11.2 cm Mitral E Point Velocity 55.8 cm/s Mitral A Point Velocity 66.4 cm/s Mitral E to A Ratio 0.8 MV Deceleration Time 220.5 ms LV E' Lateral Velocity 15.3 cm/s Mitral E to LV E' Lateral Ratio 3.7 LV E' Septal Velocity 14.0 cm/s Mitral E to LV E' Septal Ratio 4.0 TR Peak Velocity 343.8 cm/s TR Peak Gradient 47.3 mmHg Right Atrial Pressure 15.0 mmHg Pulmonary Artery Systolic Pressu 62.3 mmHg Right Ventricular Systolic Press 62.3 mmHg FINDINGS Left Ventricle Left ventricular wall thickness normal. Small left ventricular cavity. No obvious regional wall motion abnormalities. Left ventricular ejection fraction is estimated at 50-55%. Low normal systolic function. Right Ventricle Right ventricle not well visualized but appears dilated.severe pulmonary hypertension. Right Atrium Right atrium not well visualized but appears dilated. Left Atrium Normal left atrial size. Mitral Valve Structurally normal mitral valve. Mitral valve thickened. No mitral regurgitation. Aortic Valve Trileaflet aortic valve. Aortic valve sclerosis. No aortic regurgitation. Tricuspid Valve Structurally normal tricuspid valve. Moderate tricuspid regurgitation. Pulmonic Valve Pulmonic valve not well visualized. Mild pulmonic regurgitation. Pericardium No pericardial effusion. Aorta Aortic root and proximal ascending aorta not well visualized. CONCLUSIONS Normal LV systolic function Previewed by: Dr. René Vallecillo MD (Electronically Signed) Final Date: 20 June 2023 16:53
[2023-06-20] MEDS: METOPROLOL TARTRATE 5 MG/5 ML VIAL IVP PRN (18:24)
[2023-06-20] MEDS: LOSARTAN 50 MG TAB PO SCH (20:32)
[2023-06-20] MEDS: DOXAZOSIN 4 MG TAB PO SCH (20:32)
[2023-06-20] MEDS: ATORVASTATIN 10 MG TAB PO SCH (20:32)
[2023-06-21] MEDS: HYDROmorphone 0.5 MG/0.5 ML SYRINGE IVP PRN (04:41)
[2023-06-21] MEDS: SODIUM CHLORIDE 0.9% 1,000 ML IV SCH ×2 (04:45→15:55)
[2023-06-21] MEDS: PANTOPRAZOLE 40 MG/10 ML VIAL IVP SCH (07:34)
[2023-06-21] MEDS: METOPROLOL TARTRATE 5 MG/5 ML VIAL IVP PRN (07:34)
[2023-06-21] MEDS ORDERED: TRANEXAMIC ACID 1,000 MG in SODIUM CHLORIDE 0.9% 100 ML IVPB ONE ×2 (07:43→07:44)
[2023-06-21] MEDS ORDERED: ROPIVACAINE/EPI/CLONIDINE/KET 50 ML SYRINGE MISCELLANE PRN (07:46)
[2023-06-21] MEDS: HEPARIN SODIUM,PORCINE 5,000 UNIT/ML 1 ML VIAL SQ SCH ×2 (07:56→20:50)
[2023-06-21] MEDS: METOPROLOL TARTRATE 25 MG TAB PO SCH ×2 (07:58→20:50)
[2023-06-21] MEDS ORDERED: DEXAMETHASONE SOD PHOSPHATE 10 MG/ML 1 ML VIAL ONE (08:06)
[2023-06-21] MEDS ORDERED: ROCURONIUM 10 MG/ML (5 ML VIAL) IV ONE (08:06)
[2023-06-21] MEDS ORDERED: GLYCOPYRROLATE 0.2 MG/ML 2 ML VIAL ONE (08:06)
[2023-06-21] MEDS ORDERED: SUCCINYLCHOLINE CHLORIDE 200 MG/10 ML VIAL IV ONE (08:06)
[2023-06-21] MEDS ORDERED: SODIUM CHLORIDE 0.9% 1,000 ML IV ONE ×2 (08:06→10:54)
[2023-06-21] MEDS ORDERED: NEOSTIGMINE 1 MG/ML 10 ML VIAL ONE (08:06)
[2023-06-21] MEDS ORDERED: PHENYLEPHRINE-0.9% NACL SYG 1,000 MCG/10 ML SYRINGE ONE (08:06)
[2023-06-21] MEDS ORDERED: PROPOFOL 10 MG/ML 20 ML VIAL IV ONE (08:06)
[2023-06-21] MEDS ORDERED: ceFAZolin 1,000 MG VIAL ONE (08:06)
[2023-06-21] MEDS ORDERED: TRANEXAMIC 1,000 MG/100ML-NACL PREMIX BAG ONE (08:06)
[2023-06-21] MEDS ORDERED: KETAMINE 10 MG/ML 20 ML VIAL ONE (08:06)
[2023-06-21] MEDS ORDERED: MIDAZOLAM 2 MG/2 ML VIAL ONE (08:06)
[2023-06-21] MEDS ORDERED: fentaNYL (PF) 50 MCG/ML 2 ML AMP ONE (08:06)
[2023-06-21] MEDS ORDERED: ONDANSETRON 4 MG/2 ML VIAL ONE (08:06)
[2023-06-21] MEDS ORDERED: LIDOCAINE 2% INJ 20 MG/ML (2 ML VIAL) ONE (08:06)
[2023-06-21] MEDS: IPRATROPIUM-ALBUTEROL 3 ML NEB INHALATION SCH ×4 (09:14→20:34)
[2023-06-21] MEDS ORDERED: ceFAZolin 3,000 MG in SODIUM CHLORIDE 0.9% IRRIGATIO 3,000 ML IRRIGATION ONE (09:46)
--- NOTE | 2023-06-21 10:10 | XR ---
Fluoroscopy INDICATION: Pain FINDINGS: Fluoroscopy time: 36 seconds. Total dose area product (DAP) in uGy*m?, mGy*cm? (or similar): 1.16 Images obtained: 7. IMPRESSIONS: 1. Documentation of fluoroscopy.
--- NOTE | 2023-06-21 10:15 | P.OP ---
Date of Procedure: 06/21/23 Preoperative Diagnosis: 1. Left femoral neck fracture 2. Advanced dementia 3. COPD 4. Pneumonia 5. Acute respiratory failure 6. Osteoporosis Postoperative Diagnosis: Same Procedure(s) Performed: Left direct anterior hip hemiarthroplasty Implants: Lee accolade C size #5 high offset stem, bipolar femoral head 28 mm +0 neck inner diameter head, 49 mm outer diameter head Anesthesia: SAROJA, local Surgeon: Jamal Ceballos Chairman And Ceo #1: Shilo Oneal Estimated Blood Loss (ml): 100 IV fluids (ml): 700 Urine output (ml): 150 Pathology: none sent Condition: stable Disposition: PACU Indications for Procedure: I met with the patient and their family to discuss treatment options. The patient has a displaced femoral neck fracture and based on their age, activity level, and medical comorbidities I recommended a hip hemiarthroplasty to facilitate early mobilization. My recommendation was to perform the hemiarthroplasty through a direct anterior approach to help lower the risk of dislocation and improve postoperative recovery and use cemented fixation of the femoral component to reduce the risk of fracture and postoperative thigh pain. We discussed the potential risks and complications of a hemiarthroplasty for displaced femoral neck fracture at length. Risks discussed include are certainly not limited to risks from anesthesia, superficial infection requiring local wound care and possibly surgical debridement, deep periprosthetic joint infection and the treatment for this, damage to local blood vessels or nerves particularly the lateral femoral cutaneous nerve, intraoperative fracture, postoperative periprosthetic fracture, leg length discrepancy, hip dislocation, aseptic loosening, groin pain, thigh pain, progression of arthritis requiring conversion to total hip arthroplasty, complications related to cementing the component, an inability to regain preinjury level of function, DVT, PE, acute coronary event, stroke, pneumonia, urinary tract infection, failure to thrive, and possibly . The patient and their family understand that while these are the most common complications other less common complications are possible. They provided their verbal and written consent to go forward with surgery. Operative Findings: Comminuted can cervical femoral neck fracture starting in the subcapital region superiorly and extending into the transcervical neck inferiorly with no extension into the calcar Description of Procedure: The patient was identified in the preoperative holding area and the correct hip was marked with my initials. I reviewed the procedure and consent with the patient. All of their questions were answered. The patient was then brought back into the operating room by anesthesia. [facility] by the [facility] team. Preoperative antibiotics and tranexamic acid were also given. After the patient was under anesthesia I examined their ankles to determine their preoperative leg length discrepancy. The skin over the anterior aspect of the hip was shaved to remove hair over the site of planned incision. Both feet and ankles were padded with webril and boots for the [place] were applied. The patient was then carefully transferred onto the [place] table. A perineal post was immediately placed. The arms were placed on arm hol ders and were well-padded. Both boots were secured to the spars on the [place] table. The patient was positioned so that the pelvis was centered over the post. Nonsterile drapes were applied. A timeout was performed identifying the correct patient, operative extremity, and procedure. At this point fluoroscopy was brought in to take preoperative images of the pelvis and operative hip. A metallic bar was used to create a bi-ischial line for use as a reference to leg length adjustments during the procedure. Global offset was also measured on both the operative and nonoperative leg. Fluoroscopy was then brought out and a pre-scrub using a chlorhexidine scrub brush was performed. The operative limb was then prepped and draped in the standard sterile fashion. An anterior longitudinal incision was made lateral and distal to the ASIS. The skin and subcutaneous tissues were incised sharply. The underlying tensor fascia was identified and incised in its midportion. The fascia was dissected free from the underlying muscle and the muscle belly was retracted. A blunt tipped cobra retractor was placed over the superior neck under the muscle fibers of the gluteus minimus. The deep enveloping fascia of the tensor was incised. The anterior leash of vessels were then identified and cauterized. The fascia between the rectus and the capsule was then incised and the pre-capsular fat was excised. A second Cobra was placed inferior to the neck. The interval between the rectus and iliocapsularis and the hip capsule was developed and a retractor was placed carefully over the anterior rim of the acetabulum. A T-shaped anterior capsulotomy was performed. A hemarthrosis consistent with a femoral neck fracture was identified. The superior capsular leaflet was left in place in the inferior capsular flap was excised. The Cobra retractors were placed intracapsularly. A displaced femoral neck fracture was then identified. We then made a femoral neck osteotomy according to preoperative and intraoperative templating and confirmed the level of the osteotomy using fluoroscopic imaging. The femoral head was removed, passed off to the back table, and sized. The superior capsular flap was excised. On inspection of the acetabulum there were minimal degenerative changes with intact cartilage. Attention was then turned to the femur. The remnant dorsal lateral capsule was excised. The short external rotators were visible and protected. A bone hook was used to confirm appropriate translation of the trochanter away from the acetabulum. The leg was then extended and adducted and the bone hook was used to elevate the femur for broaching. A box osteotome and blunt tipped canal sound was then utilized to gain access to the femoral canal. We then sequentially broached the femur in appropriate anteversion until torsional stability was achieved and the implant was felt to have reached the appropriate size to allow trialing. The neck cut was brought flush to the trial broach with a calcar planar. A trial neck and head were then placed onto the broach and the hip was atraumatically reduced under direct visualization. External rotation to 90 was performed to assess stability. Fluoroscopy was brought in. An AP and lateral fluoroscopic image of the proximal femur was obtained to assess position and fill of the trial broach. An AP of the pelvis was then obtained and matched to the preoperative image taken. A bi-ischial bar was then placed and measurements were taken to assess changes in length and offset. The hip was then carefully dislocated, the proximal femur was exposed, and the trial implants were removed. The proximal femur was then prepared for cementing. The canal was thoroughly irrigated with pulsatile lavage to remove blood and marrow contents. A cement restrictor was placed to a depth just distal to the tip of the final implant. Epinephrine-soaked gauze was then packed into the proximal femur. 2 bags of cement with antibiotics were then mixed using a centrifuge and placed into a cement gun. Anesthesia was notified that cementing was about to commence to make sure the patient was appropriately ventilated and hydrated. Once the cement had reached appropriate consistency, the cement gun was used to fill the canal in a retrograde fashion starting at the restrictor. Cement was then pressurized into the canal with a blue tipped allergist/immunologist. The stem was then carefully introduced into the cement taking care to guide the implant into appropriate version. The stem was held in position until the cement had fully set. All extra cement was removed while the cement was hardening. The trunnion was cleansed and the final head was tapped into place to engage the Hernandez taper. The acetabulum was irrigated and visualized to be free of debris. The hip was carefully reduced. Stability was checked clinically with external rotation to 90 and there was no evidence of instability. Final fluoroscopic images were taken. The wound was then thoroughly irrigated with Irrisept. 3 L of sterile saline was irrigated through the wound using pulsatile lavage. Local anesthetic cocktail was injected into the soft tissues around the surgical field. A deep drain was placed. The wound was then closed in layers. A sterile dressing was placed over the surgical incision and drain site. The drapes were taken down and the patient was carefully transferred off of the [place] table. Following removal of the boots the leg lengths felt acceptable. The patient was then taken to recovery room having tolerated the procedure well. Shilo Oneal PA-C was required as a skilled printing bindery assistant for patient positioning, surgical exposure, retraction, placement of implants, and closure of the surgical wound. PLAN: The patient can weight-bear as tolerated on the operative extremity. 2 doses of postoperative antibiotics. DVT prophylaxis with aspirin 81 mg twice a day based on preoperative risk stratification. Physical therapy for gait training. Discontinue drain postoperative day #1 if output is less than 100 mL per shift.
[2023-06-21] MEDS ORDERED: NALOXONE 0.4 MG/ML 1 ML VIAL IV PRN (10:22)
--- NOTE | 2023-06-21 11:12 | P.PN ---
Subjective Progress Note Date: 06/21/23 83-year-old male patient with a history of dementia was brought into the emergency department after he was found outside and a small ditch. The patient was found approximately half a mile away from his residence. According to the family, the patient has dementia and episodes of confusion. usually, his symptoms of confusion and dementia get worse at nighttime. He was found in a ditch around 4 AM this morning. Prior to that, he was in his house. Upon arrival to the emergency department, the patient was having hip pain and he was unable to answer questions appropriately. He was given Dilaudid and fentanyl in the emergency department. At the time of my evaluation, the patient was quite somnolent and sleepy. He was unable to answer any questions. A chest x-ray was done and the patient was found to have chronic scarring and a lung apices bilaterally. There is no evidence of any pneumonia. The patient is known to have COPD and the patient was initially placed on 4 L of oxygen nasal cannula and he was brought up to 10 L as the patient was found to be hypoxic. No significant tachypnea. Hemodynamically stable. CAT scan of the brain was done and the patient was found to have no acute process. There was some chronic lung specific white matter changes along with chronic small vessel ischemic changes. No evidence of any cervical spine fracture. Multiple or multilevel degenerative changes involving the cervical spine.X-ray of the lumbosacral spine showed no evidence of any fracture. There was moderate multilevel degenerative disc changes and facet arthropathy of the lumbar spine along with levoscoliosis of the lumbar spine. X-ray of the hip showed a left proximal femoral neck fracture. Computed tomography scan of the head was also done and the patient was found to have a fracture of the left femoral neck and fracture line extending from the subcu region of the superior femoral Neck junction and there was underlying osteopenia. The patient has a WBC count 12.1. Hemoglobin is at 13. Normal cognition profile. Normal electrolytes. Normal troponins. CPK was 244. Alcohol level was negative. On today's evaluation, the patient remains somnolent, lethargic, still unable to communicate. The patient has underlying dementia. The patient is currently down to 4 L of oxygen by nasal cannula. The patient was supposed to undergo surgery today. This was postponed to tomorrow. He is going to undergo a left hip ORIF. He did have an episode of atrial tachycardia for which he was given beta blockers. As mentioned earlier, he has significant cognitive impairments. Is related to his underlying dementia. The white cell count is at 12.5 with a hemoglobin 11.9 and a platelet count of 174. BUN is 19 with a creatinine 1.2 and his sodium levels is 144. UA is negative. Alcohol level is negative. LFTs are normal. CPKs 244. Chest x-ray shows COPD and is also limited bibasilar pulmonary infiltrates and the patient is currently on accommodation of Rocephin and Zithromax. He is also on DuoNeb nebulized treatments [id number]. IV fluids are running at a rate of 100 mL an hour. The patient is running a low- grade fever.The patient was also seen by cardiology. The patient was started on the Toprol 25 mg twice a day. The patient is sinus mechanism with atrial tachycardia and he was given IV Lopressor. On 06/21/2023, condition is essentially unchanged and the patient is on 4 L of oxygen by nasal cannula. The patient will be taken for surgery and left hip arthroplasty today. The patient's will have his surgery on the local anesthesia. The patient was placed on DVT prophylaxis with aspirin 82 mg by mouth twice a day. Orthopedic recommendation. He remains on IV fluids normal saline at the rate of 100 mL an hour. Dilaudid for pain control. IV cefazolin for surgical prophylaxis. White cycles of 12.5 with a hemoglobin 11.9. Objective - Vital Signs Vital signs: Vital Signs Temp 99.6 F 06/21/23 07:31 Pulse 138 H 06/21/23 07:31 Resp 18 06/21/23 07:31 BP 120/59 06/21/23 07:31 Pulse Ox 93 L 06/21/23 07:31 FiO2 Intake & Output 06/20/23 06/21/23 06/21/23 18:59 06:59 18:59 Intake Total 0 1000 60 Output Total 350 Balance 0 650 60 Intake: IV 60 Invasive Line 1 10 Intake, IV Titration 1000 Amount Sodium Chloride 0.9% 1, 1000 000 ml @ 100 mls/hr IV . Q10H [facility] Rx#:[id number] Oral 0 Output: Urine 350 Other: Voiding Method Indwelling Catheter Indwelling Catheter - Exam Gen. appearance,, comfortable, currently on 4 L of oxygen by nasal cannula. Lethargic, encephalopathic. Head exam was generally normal. There was no scleral icterus or corneal arcus. Mucous membranes were moist. Neck was supple and without jugular venous distension, thyromegaly, or carotid bruits. Carotids were easily palpable bilaterally. There was no adenopathy. Lungs sounds are diminished bilaterally and the breath sounds are equal and symmetrical. Cardiac exam revealed the PMI to be normally situated and sized. The rhythm was regular and no extrasystoles were noted during several minutes of auscultation. The first and second heart sounds were normal and physiologic splitting of the second heart sound was noted. There were no murmurs, rubs, clicks, or gallops. Abdominal exam revealed normal bowel sounds. The abdomen was soft, non-tender, and without masses, organomegaly, or appreciable enlargement of the abdominal aorta. Extremities shows that the left lower extremity is externally rotated due to underlying hip fracture. Neurologically, moving all 4 extremities and the exam is nonfocal. Pupils are equal and reactive to light. Examination of the skin revealed no evidence of significant rashes, suspicious appearing nevi or other concerning lesions. - Labs CBC & Chem 7: 06/20/23 05:34 06/20/23 05:34 Labs: Microbiology - Last 24 Hours (Table) 06/19/23 08:20 Blood Culture - Preliminary Blood 06/19/23 08:05 Blood Culture - Preliminary Blood Assessment and Plan Plan: Traumatic left femoral neck fracture, post fall Acute hypoxic respiratory failure and the patient is currently on 4 L of oxygen by nasal cannula. Chest x-ray showing biapical scarring and background COPD. The patient was given narcotics for pain control. No clear signs of hypoventilation at this point in time. No clear signs of aspiration. 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 Atrial tachycardia, currently on IV Lopressor [id number] and less tachycardic Encephalopathy with ongoing altered mentation. Fever likely secondary to above Plan Surgery is planned for today and the patient is going to have left hip arthroplasty Titrate oxygen flow to maintain a saturation above 90%, currently on 4 L Limited use of narcotic medications and avoid hypoventilation Surgery will likely be done under local anesthesia/spinal Monitor mental status Patient was started on broad-spectrum antibiotics, currently on a combination of Rocephin a Continue DuoNeb updrafts [id number] Heparin subcu portably prophylaxis IV fluids with normal saline at rate of 100 mL an hour IV Protonix Orthopedic surgery consultation High risk for developing postoperative pulmonary complications as discussed with the family at the bedside CODE STATUS remains full Echocardiogram was noted and the patient is a preserved LV function, no significant valvular abnormalities. Cardiology evaluation We'll continue to follow
--- NOTE | 2023-06-21 12:33 | P.PN ---
Subjective Progress Note Date: 06/21/23 * 83-year-old male patient with a history of dementia was brought into the emergency department after a fall at home * Upon arrival to the emergency department, the patient was having hip pain and he was unable to answer questions appropriately. * The patient has COPD and the patient was initially placed on 4 L of oxygen nasal cannula and he was brought up to 10 L as the patient was found to be hypoxic. * CAT scan of the brain was done and the patient was found to have no acute process. There was some chronic lung specific white matter changes along with chronic small vessel ischemic changes. No evidence of any cervical spine fracture. Multiple or multilevel degenerative changes involving the cervical spine * X-ray of the lumbosacral spine showed no evidence of any fracture. * Computed tomography scan of the head was also done and the patient was found to have a fracture of the left femoral neck and fracture line extending from the subcu region of the superior femoral Neck junction and there was underlying osteopenia. * Consultation obtained from orthopedic, pulmonary medicine and cardiology for preoperative assessment * 06/20>> patient was weaned down to 4 L of oxygen, patient continues to remain disoriented, patient was agitated through the night does have underlying cognitive impairment however does not have a and O's as of dementia. Patient had one episode of atrial tachycardia. * 06/21> patient seen and evaluated bedside status post surgery. Family at bedside all questions answered. Continue with pain control. We'll follow up on CBC continued to remain down on oxygen as tolerated pulmonary medicine following Objective - Vital Signs Vital signs: Vital Signs Temp 97.0 F L 06/21/23 10:15 Pulse 101 H 06/21/23 10:55 Resp 18 06/21/23 10:55 BP 117/53 06/21/23 10:55 Pulse Ox 97 06/21/23 10:55 FiO2 Intake & Output 06/20/23 06/21/23 06/21/23 18:59 06:59 18:59 Intake Total 0 1000 836 Output Total 350 250 Balance 0 650 586 Intake: IV 836 Invasive Line 1 10 Intake, IV Titration 1000 Amount Sodium Chloride 0.9% 1, 1000 000 ml @ 100 mls/hr IV . Q10H [facility] Rx#:[id number] Oral 0 Output: Urine 350 150 Estimated Blood Loss 100 Other: Voiding Method Indwelling Catheter Indwelling Catheter Indwelling Catheter - Exam PHYSICAL EXAMINATION: GENERAL: Ill appearance, disoriented, status post surgery, able to maintain airway a nasal cannula in place HEENT: Pupils are pinpoint however reactive, discharge noted from eyelids CARDIOVASCULAR: S1 and S2 present. No murmurs, rubs, or gallops. PULMONARY: Nasal cannula in place, no use of accessory muscle, breath sounds equal and symmetrical bilateral ABDOMEN: Soft, nontender, nondistended, normoactive bowel sounds. No palpable organomegaly. MUSCULOSKELETAL: Left pelvic/hip edema , status post left hip surgery, drain in place NEUROLOGICAL: Patient disoriented, exam limited - Labs CBC & Chem 7: 06/20/23 05:34 06/20/23 05:34 Labs: Microbiology - Last 24 Hours (Table) 06/19/23 08:20 Blood Culture - Preliminary Blood 06/19/23 08:05 Blood Culture - Preliminary Blood Assessment and Plan Assessment: Assessment and plan * Status post fall with left hip fracture * Acute exacerbation of COPD, with acute hypoxic respiratory failure * Community-acquired pneumonia * Atrial tachycardia paroxysmal * Hypertension * Hyperlipidemia * Cognitive impairment with suspicion for dementia however no official diagnosis * Consult on patient obtained from pulmonary medicine, cardiology for preoperative assessment> echocardiogram shows preserved ejection fraction, cleared by cardiology for discharge * Postoperative day 0 status post left hip surgery open reduction internal fixation continue with postoperative pain management physical therapy occupational therapy * In regards to acute respiratory failure, continue patient on breathing treatment, continue Rocephin and azithromycin day 2, pulmonary medicine following * In regards to atrial tachycardia >> and DAMIAN patient on metoprolol * Patient does have cognitive impairment with agitation when necessary Ativan ordered as needed for acute agitation * Subcu heparin for DVT prophylaxis
[2023-06-21] MEDS: AZITHROMYCIN 500 MG TAB PO SCH (15:55)
[2023-06-21] MEDS: HYDROcodone/APAP 5-325MG 1 EACH TAB PO PRN (18:41)
[2023-06-21] MEDS: SENNOSIDES-DOCUSATE SODIUM 1 EACH TAB PO SCH (20:50)
[2023-06-21] MEDS: ASPIRIN 81 MG PO SCH (20:50)
[2023-06-21] MEDS: ATORVASTATIN 10 MG TAB PO SCH (20:51)
[2023-06-21] MEDS: LOSARTAN 50 MG TAB PO SCH (20:51)
[2023-06-21] MEDS: DOXAZOSIN 4 MG TAB PO SCH (20:51)
[2023-06-22] MEDS: SODIUM CHLORIDE 0.9% 1,000 ML IV SCH ×3 (02:08→11:53)
[2023-06-22] MEDS: HEPARIN SODIUM,PORCINE 5,000 UNIT/ML 1 ML VIAL SQ SCH ×2 (07:56→20:48)
[2023-06-22] MEDS: PANTOPRAZOLE 40 MG/10 ML VIAL IVP SCH (07:56)
[2023-06-22] MEDS: METOPROLOL TARTRATE 25 MG TAB PO SCH ×2 (07:56→20:50)
[2023-06-22] MEDS: ASPIRIN 81 MG PO SCH ×2 (07:56→20:51)
--- NOTE | 2023-06-22 08:45 | P.PN ---
Subjective Progress Note Date: 06/22/23 Principal diagnosis: fall This is an 83-year-old male who was found in a ditch after a fall and emergency personnel found him. He was brought to the emergency room and found to have a left hip fracture. Patient has a history of COPD and is a chronic smoker. Workup in the emergency room also did show pneumonia. Yesterday patient underwent a left direct anterior hip hemiarthroplasty with Dr. Ceballos. He tolerated the procedure well. He is seen this morning sitting up in bed alert. He is able to follow commands, with only slight confusion noted. He denies any pain currently. Objective - Vital Signs Vital signs: Vital Signs Temp 98.2 F 06/22/23 07:50 Pulse 86 06/22/23 07:50 Resp 18 06/22/23 07:50 BP 131/70 06/22/23 07:50 Pulse Ox 89 L 06/22/23 07:50 FiO2 Intake & Output 06/21/23 06/22/23 06/22/23 18:59 06:59 18:59 Intake Total 1246 20 130 Output Total 425 310 Balance 821 -290 130 Intake: IV 846 20 10 Invasive Line 1 10 Invasive Line 2 10 20 10 Intake, IV Titration 50 Amount cefTRIAXone 2 gm In 50 Sodium Chloride 0.9% 50 ml @ 100 mls/hr IVPB Q24HR [facility] [place] Rx#:[id number] Oral 350 120 Output: Drainage 50 110 Left Hip 50 110 Urine 275 200 Uretheral (Haley) 125 Estimated Blood Loss 100 Other: Voiding Method Indwelling Catheter Indwelling Catheter - Constitutional General appearance: Present: cooperative, no acute distress - EENT Eyes: Present: PERRLA - Neck Neck: Present: normal ROM. Absent: lymphadenopathy, rigidity - Respiratory Respiratory: bilateral: CTA - Cardiovascular Rhythm: regular Heart sounds: normal: S1, S2 - Gastrointestinal General gastrointestinal: Present: soft. Absent: tenderness - Integumentary Integumentary Comment(s): dressing dry and intact Integumentary: Present: normal, normal turgor - Musculoskeletal Musculoskeletal: Present: generalized weakness - Psychiatric Psychiatric: Present: A&O x's 3, appropriate affect, intact judgment & insight - Labs CBC & Chem 7: 06/20/23 05:34 06/20/23 05:34 Labs: Microbiology - Last 24 Hours (Table) 06/19/23 08:20 Blood Culture - Preliminary Blood 06/19/23 08:05 Blood Culture - Preliminary Blood Assessment and Plan (1) Fall Current Visit: Yes Status: Acute Code(s): W19.XXXA - UNSPECIFIED FALL, INITIAL ENCOUNTER SNOMED Code(s): 6749800 (2) Fracture of femoral neck, left Current Visit: Yes Status: Acute Code(s): S72.002A - FRACTURE OF UNSP PART OF NECK OF LEFT FEMUR, INIT SNOMED Code(s): 6056981 (3) Hypoxia Current Visit: Yes Status: Acute Code(s): R09.02 - HYPOXEMIA SNOMED Code(s): 577629101 (4) Nicotine dependence Current Visit: Yes Status: Acute Code(s): F17.200 - NICOTINE DEPENDENCE, UNSPECIFIED, UNCOMPLICATED SNOMED Code(s): 93061774 (5) Pneumonia Current Visit: Yes Status: Acute Code(s): J18.9 - PNEUMONIA, UNSPECIFIED ORGANISM SNOMED Code(s): 639456652 Plan: Consult to discharge planning for possible placement. Check CBC and CMP in the morning. Appreciate multiple consultants. Patient seen and evaluated by nurse practitioner, physician in agreement with plan
[2023-06-22] MEDS: IPRATROPIUM-ALBUTEROL 3 ML NEB INHALATION SCH ×4 (08:50→20:45)
--- NOTE | 2023-06-22 09:47 | P.PN ---
Subjective Progress Note Date: 06/22/23 This patient is an 83- year old male who is status-post direct anterior left hip hemiarthroplasty on 06/21/23. Today is post-operative day #1. Patient is examined bedside with Dr. Ceballos. He is confused. He has no verbalized complaints. Vital signs stable. Objective - Vital Signs Vital signs: Vital Signs Temp 98.2 F 06/22/23 07:50 Pulse 84 06/22/23 09:04 Resp 18 06/22/23 07:50 BP 131/70 06/22/23 07:50 Pulse Ox 89 L 06/22/23 07:50 FiO2 Intake & Output 06/21/23 06/22/23 06/22/23 18:59 06:59 18:59 Intake Total 1246 20 130 Output Total 425 310 Balance 821 -290 130 Intake: IV 846 20 10 Invasive Line 1 10 Invasive Line 2 10 20 10 Intake, IV Titration 50 Amount cefTRIAXone 2 gm In 50 Sodium Chloride 0.9% 50 ml @ 100 mls/hr IVPB Q24HR [facility] Rx#:[id number] Oral 350 120 Output: Drainage 50 110 Left Hip 50 110 Urine 275 200 Uretheral (Haley) 125 Estimated Blood Loss 100 Other: Voiding Method Indwelling Catheter Indwelling Catheter - Exam On examination, patient is lying in bed in no acute distress. He is confused. On inspection of the left hip, there is a clean, dry, intact surgical dressing in place. No bleeding or drainage through the dressing. Mild swelling of the thigh, thigh is soft and compressible. Motor and sensory function intact left lower extremity. Left lower extremity warm and well perfused. Calf nontender. Hemovac drain removed bedside this morning during exam. - Labs CBC & Chem 7: 06/20/23 05:34 06/20/23 05:34 Labs: Microbiology - Last 24 Hours (Table) 06/19/23 08:20 Blood Culture - Preliminary Blood 06/19/23 08:05 Blood Culture - Preliminary Blood Assessment and Plan Assessment: Status-post direct anterior left hip hemiarthroplasty on 06/21/23. Post-op day #1. Plan: - Weight bear to tolerance on operative extremity with a walker. Up with assistance only. Fall precautions. - Physical therapy for gait and balance training. - Keep operative dressings in place. - Pain management as needed. - Aspirin 81mg BID for DVT prophylaxis. - We will continue to follow patient as he remains inpatient.
[2023-06-22 09:49] LABS: Basophils % (A) 0 %; Eosinophils % (A) 0 %; HGB 10.6 gm/dL (13.0-17.5); Hypochromasia Slight; Lymphocytes # (A) 0.5 k/uL (1.0-4.8); Lymphocytes % (A) 4 %; MCH 30.6 pg (25.0-35.0); MCHC 31.9 g/dL (31.0-37.0); MCV 95.8 fL (80.0-100.0); Mean Platelet Volume 8.1; Monocytes # (A) 0.7 k/uL (0-1.0); Monocytes % (A) 6 %; Neutrophils # (A) 9.6 k/uL (1.3-7.7); Neutrophils % (A) 88 %; Platelet Count 160 k/uL (150-450); RBC 3.45 m/uL (4.30-5.90); WBC 10.9 k/uL (3.8-10.6)
[2023-06-22 10:04] LABS: African American GFR (CKD) 62 (>60 ml/min/1.73 sqM); Anion Gap 7 mmol/L; Blood Urea Nitrogen 33 mg/dL (9-20); Calcium 7.6 mg/dL (8.4-10.2); Carbon Dioxide 24 mmol/L (22-30); Chloride 113 mmol/L (98-107); Glucose 114 mg/dL (74-99); Magnesium 2.4 mg/dL (1.6-2.3); Non-African American GFR(CKD) 53 (>60 ml/min/1.73 sqM); Sodium 144 mmol/L (137-145)
--- NOTE | 2023-06-22 14:41 | P.PN ---
Subjective Progress Note Date: 06/22/23 Principal diagnosis: Traumatic left femoral neck fracture post fall 83-year-old male patient with a history of dementia was brought into the emergency department after he was found outside and a small ditch. The patient was found approximately half a mile away from his residence. According to the family, the patient has dementia and episodes of confusion. usually, his sympt oms of confusion and dementia get worse at nighttime. He was found in a ditch around 4 AM this morning. Prior to that, he was in his house. Upon arrival to the emergency department, the patient was having hip pain and he was unable to answer questions appropriately. He was given Dilaudid and fentanyl in the emergency department. At the time of my evaluation, the patient was quite somnolent and sleepy. He was unable to answer any questions. A chest x-ray was done and the patient was found to have chronic scarring and a lung apices bilaterally. There is no evidence of any pneumonia. The patient is known to have COPD and the patient was initially placed on 4 L of oxygen nasal cannula a nd he was brought up to 10 L as the patient was found to be hypoxic. No significant tachypnea. Hemodynamically stable. CAT scan of the brain was done and the patient was found to have no acute process. There was some chronic lung specific white matter changes along with chronic small vessel ischemic changes. No evidence of any cervical spine fracture. Multiple or multilevel degenerative changes involving the cervical spine.X-ray of the lumbosacral spine showed no evidence of any fracture. There was moderate multilevel degenerative disc changes and facet arthropathy of the lumbar spine along with levoscoliosis of the lumbar spine. X-ray of the hip showed a left proximal femoral neck f racture. Computed tomography scan of the head was also done and the patient was found to have a fracture of the left femoral neck and fracture line extending from the subcu region of the superior femoral Neck junction and there was underlying osteopenia. The patient has a WBC count 12.1. Hemoglobin is at 13. Normal cognition profile. Normal electrolytes. Normal troponins. CPK was 244. Alcohol level was negative. On today's evaluation, the patient remains somnolent, lethargic, still unable to communicate. The patient has underlying dementia. The patient is currently down to 4 L of oxygen by nasal cannula. The patient was supposed to undergo surgery today. This was postponed to tomorrow. He is going to undergo a left hip ORIF. He did have an episode of atrial tachycardia for which he was given beta blockers. As mentioned earlier, he has significant cognitive impairments. Is related to his underlying dementia. The white cell count is at 12.5 with a hemoglobin 11.9 and a platelet count of 174. BUN is 19 with a creatinine 1.2 and his sodium levels is 144. UA is negative. Alcohol level is negative. LFTs are normal. CPKs 244. Chest x-ray shows COPD and is also limited bibasilar pulmonary infiltrates and the patient is currently on accommodation of Rocephin and Zithromax. He is also on DuoNeb nebulized treatments [id number]. IV fluids are running at a rate of 100 mL an hour. The patient is running a low- grade fever.The patient was also seen by cardiology. The patient was started on the Toprol 25 mg twice a day. The patient is sinus mechanism with atrial tachycardia and he was given IV Lopressor. On 06/21/2023, condition is essentially unchanged and the patient is on 4 L of oxygen by nasal cannula. The patient will be taken for surgery and left hip arthroplasty today. The patient's will have his surgery on the local anesthesia. The patient was placed on DVT prophylaxis with aspirin 82 mg by mouth twice a day. Orthopedic recommendation. He remains on IV fluids normal saline at the rate of 100 mL an hour. Dilaudid for pain control. IV cefazolin for surgical prophylaxis. White cycles of 12.5 with a hemoglobin 11.9. Patient was reevaluated today on 06/22/2023, seems to be doing well, he underwent uneventful surgery for his left hip fracture, patient is now postoperative day #1, he is confused, patient does have underlying dementia, does not seem in any distress. Patient actually had direct anterior left hip hemiarthroplasty, and the course has been relatively uneventful so far. Labs today were reviewed relatively normal CBC except for hemoglobin of 10.6 electrolytes are normal renal profile showed a BUN of 33 creatinine 1.24. Chest x-ray on admission showed small right-sided pleural effusion, and left base as well as right basilar atelectasis. Objective - Vital Signs Vital signs: Vital Signs Temp 97.0 F L 06/22/23 11:42 Pulse 80 06/22/23 12:36 Resp 18 06/22/23 11:42 BP 110/52 06/22/23 11:42 Pulse Ox 92 L 06/22/23 11:42 FiO2 Intake & Output 06/21/23 06/22/23 06/22/23 18:59 06:59 18:59 Intake Total 1246 20 545 Output Total 425 310 350 Balance 821 -290 195 Intake: IV 846 20 10 Invasive Line 1 10 Invasive Line 2 10 20 10 Intake, IV Titration 50 Amount cefTRIAXone 2 gm In 50 Sodium Chloride 0.9% 50 ml @ 100 mls/hr IVPB Q24HR [facility] Rx#:[id number] Oral 350 535 Output: Drainage 50 110 Left Hip 50 110 Urine 275 200 350 Uretheral (Haley) 125 Estimated Blood Loss 100 Other: Voiding Method Indwelling Catheter Indwelling Catheter Indwelling Catheter - Exam Physical Exam: Revealed an 83-year-old white male in no distress, confused, patient has underlying dementia, patient is on 4 L nasal cannula with O2 saturation 92% HEENT:[Neck is supple.] [No neck masses.] [No thyromegaly.] [No JVD.] Chest: [Diminished breath sound bilaterally no crackles or rhonchi or wheezes Cardiac Exam: [Normal S1 and S2, no S3 gallop, no murmur.] Abdomen: [Soft, nontender, no megaly, no rebound, no guarding, normal bowel sounds.] Extremities: [the left hip, there is a clean, dry, intact surgical dressing in place Neurological Exam: Pleasantly confused, otherwise unremarkable Psychiatric: Flat affect, patient is confused - Labs CBC & Chem 7: 06/22/23 09:08 06/22/23 09:08 Labs: Abnormal Lab Results - Last 24 Hours (Table) 06/22/23 06/22/23 Range/Units 09:08 09:08 WBC 10.9 H (3.8-10.6) k/uL RBC 3.45 L (4.30-5.90) m/uL Hgb 10.6 L (13.0-17.5) gm/dL Hct 33.0 L (39.0-53.0) % Neutrophils # 9.6 H (1.3-7.7) k/uL Lymphocytes # 0.5 L (1.0-4.8) k/uL Chloride 113 H (98-107) mmol/L BUN 33 H (9-20) mg/dL Glucose 114 H (74-99) mg/dL Calcium 7.6 L (8.4-10.2) mg/dL Magnesium 2.4 H (1.6-2.3) mg/dL Microbiology - Last 24 Hours (Table) 06/19/23 08:20 Blood Culture - Preliminary Blood 06/19/23 08:05 Blood Culture - Preliminary Blood Assessment and Plan Assessment: Impression: Status post direct anterior left hip hemiarthroplasty, postoperative day #1 Acute hypoxic respiratory failure with abnormal chest x-ray showing COPD and biapical scarring Underlying COPD Underlying dementia Benign essential hypertension Dyslipidemia Chronic degenerative joint disease Recommendation: Continue oxygen and titrate accordingly Continue postoperative care measures as per protocol for hip surgery Continue DVT prophylaxis Continue updrafts Continue Rocephin empirically Continue pain control management Resume cardiac meds Continue proton GI prophylaxis We'll continue to Time with Patient: Less than 30
[2023-06-22] MEDS: HYDROcodone/APAP 5-325MG 1 EACH TAB PO PRN (18:41)
[2023-06-22] MEDS: ATORVASTATIN 10 MG TAB PO SCH (20:50)
[2023-06-22] MEDS: SENNOSIDES-DOCUSATE SODIUM 1 EACH TAB PO SCH (20:50)
[2023-06-22] MEDS: DOXAZOSIN 4 MG TAB PO SCH (20:50)
[2023-06-22] MEDS: LOSARTAN 50 MG TAB PO SCH (20:51)
[2023-06-23] MEDS: SODIUM CHLORIDE 0.9% 1,000 ML IV SCH ×3 (05:28→20:34)
[2023-06-23] MEDS: HYDROmorphone 0.5 MG/0.5 ML SYRINGE IVP PRN (05:28)
[2023-06-23 07:23] LABS: HCT 30.8 % (39.0-53.0); MCH 30.6 pg (25.0-35.0); MCHC 32.4 g/dL (31.0-37.0); MCV 94.4 fL (80.0-100.0); Mean Platelet Volume 8.1; Platelet Count 186 k/uL (150-450); RBC 3.26 m/uL (4.30-5.90); RDW 13.3 % (11.5-15.5); WBC 7.9 k/uL (3.8-10.6)
[2023-06-23 07:59] LABS: ALT 23 U/L (4-49); AST 87 U/L (17-59); African American GFR (CKD) 83 (>60 ml/min/1.73 sqM); Albumin 2.6 g/dL (3.5-5.0); Alkaline Phosphatase 26 U/L (38-126); Anion Gap 5 mmol/L; Blood Urea Nitrogen 28 mg/dL (9-20); Calcium 7.6 mg/dL (8.4-10.2); Carbon Dioxide 24 mmol/L (22-30); Chloride 113 mmol/L (98-107); Glucose 101 mg/dL (74-99); Non-African American GFR(CKD) 72 (>60 ml/min/1.73 sqM); Sodium 142 mmol/L (137-145); Total Bilirubin 0.6 mg/dL (0.2-1.3); Total Protein 5.2 g/dL (6.3-8.2)
--- NOTE | 2023-06-23 08:33 | P.PN ---
Subjective Progress Note Date: 06/23/23 Principal diagnosis: fall This is an 83-year-old male who was found in a ditch after a fall and emergency personnel found him. He was brought to the emergency room and found to have a left hip fracture. Patient has a history of COPD and is a chronic smoker. Workup in the emergency room also did show pneumonia. Yesterday patient underwent a left direct anterior hip hemiarthroplasty with Dr. Ceballos. He tolerated the procedure well. He is seen this morning sitting up in bed alert. He is able to follow commands, with only slight confusion noted. He denies any pain currently. 06/23/23 Patient is postop day 2 of left direct anterior hip hemiarthroplasty with Dr. Ceballos. He is seen sitting up in bed this morning. Continues to be somewhat alert and able to follow commands, with slight confusion noted. Plan is for placement for rehab at discharge. Patient still has Haley catheter, will discontinue that today and trial voiding on his own. Per patient he did not have any issues voiding prior to hospitalization. Objective - Vital Signs Vital signs: Vital Signs Temp 98.2 F 06/23/23 08:00 Pulse 94 06/23/23 08:00 Resp 16 06/23/23 08:00 BP 124/54 06/23/23 08:00 Pulse Ox 90 L 06/23/23 08:00 FiO2 Intake & Output 06/22/23 06/23/23 06/23/23 18:59 06:59 18:59 Intake Total 545 900 110 Output Total 350 375 Balance 195 525 110 Intake: IV 10 Invasive Line 2 10 Intake, IV Titration 300 Amount Sodium Chloride 0.9% 1, 300 000 ml @ 100 mls/hr IV . Q10H [facility] Rx#:[id number] Oral 535 600 110 Output: Urine 350 375 Other: Voiding Method Indwelling Catheter Indwelling Catheter - Constitutional General appearance: Present: cooperative, no acute distress - EENT Eyes: Present: PERRLA - Neck Neck: Present: normal ROM. Absent: lymphadenopathy, rigidity - Respiratory Respiratory: bilateral: CTA - Cardiovascular Rhythm: regular Heart sounds: normal: S1, S2 - Gastrointestinal General gastrointestinal: Present: soft. Absent: tenderness - Integumentary Integumentary Comment(s): Dressing dry and intact to Left hip Integumentary: Present: normal, normal turgor - Musculoskeletal Musculoskeletal: Present: generalized weakness - Psychiatric Psychiatric Comment(s): Alert to person, slight confusion at times - Labs CBC & Chem 7: 06/23/23 06:53 06/23/23 06:53 Labs: Abnormal Lab Results - Last 24 Hours (Table) 06/22/23 06/22/23 06/23/23 Range/Units 09:08 09:08 06:53 WBC 10.9 H (3.8-10.6) k/uL RBC 3.45 L 3.26 L (4.30-5.90) m/uL Hgb 10.6 L 10.0 L (13.0-17.5) gm/dL Hct 33.0 L 30.8 L (39.0-53.0) % Neutrophils # 9.6 H (1.3-7.7) k/uL Lymphocytes # 0.5 L (1.0-4.8) k/uL Chloride 113 H (98-107) mmol/L BUN 33 H (9-20) mg/dL Glucose 114 H (74-99) mg/dL Calcium 7.6 L (8.4-10.2) mg/dL Magnesium 2.4 H (1.6-2.3) mg/dL AST (17-59) U/L Alkaline Phosphatase (38-126) U/L Total Protein (6.3-8.2) g/dL Albumin (3.5-5.0) g/dL 06/23/23 Range/Units 06:53 WBC (3.8-10.6) k/uL RBC (4.30-5.90) m/uL Hgb (13.0-17.5) gm/dL Hct (39.0-53.0) % Neutrophils # (1.3-7.7) k/uL Lymphocytes # (1.0-4.8) k/uL Chloride 113 H (98-107) mmol/L BUN 28 H (9-20) mg/dL Glucose 101 H (74-99) mg/dL Calcium 7.6 L (8.4-10.2) mg/dL Magnesium (1.6-2.3) mg/dL AST 87 H (17-59) U/L Alkaline Phosphatase 26 L (38-126) U/L Total Protein 5.2 L (6.3-8.2) g/dL Albumin 2.6 L (3.5-5.0) g/dL Microbiology - Last 24 Hours (Table) 06/19/23 08:20 Blood Culture - Preliminary Blood 06/19/23 08:05 Blood Culture - Preliminary Blood Assessment and Plan (1) Fall Current Visit: Yes Status: Acute Code(s): W19.XXXA - UNSPECIFIED FALL, INITIAL ENCOUNTER SNOMED Code(s): 3136785 (2) Fracture of femoral neck, left Current Visit: Yes Status: Acute Code(s): S72.002A - FRACTURE OF UNSP PART OF NECK OF LEFT FEMUR, INIT SNOMED Code(s): 7895434 (3) Hypoxia Current Visit: Yes Status: Acute Code(s): R09.02 - HYPOXEMIA SNOMED Code(s): 751285192 (4) Nicotine dependence Current Visit: Yes Status: Acute Code(s): F17.200 - NICOTINE DEPENDENCE, UNSPECIFIED, UNCOMPLICATED SNOMED Code(s): 37720828 (5) Pneumonia Current Visit: Yes Status: Acute Code(s): J18.9 - PNEUMONIA, UNSPECIFIED ORGANISM SNOMED Code(s): 886383839 Plan: Check CBC and CMP in the morning. Discontinue Haley catheter today. Anticipate discharge in the next 24-48 hours if placement at rehab available. Patient seen and evaluated by nurse practitioner, physician in agreement with plan
[2023-06-23] MEDS: ASPIRIN 81 MG PO SCH ×2 (09:12→20:26)
[2023-06-23] MEDS: PANTOPRAZOLE 40 MG/10 ML VIAL IVP SCH (09:12)
[2023-06-23] MEDS: HEPARIN SODIUM,PORCINE 5,000 UNIT/ML 1 ML VIAL SQ SCH ×2 (09:12→20:24)
[2023-06-23] MEDS: METOPROLOL TARTRATE 25 MG TAB PO SCH ×2 (09:12→20:24)
[2023-06-23] MEDS: IPRATROPIUM-ALBUTEROL 3 ML NEB INHALATION SCH ×4 (09:13→20:53)
--- NOTE | 2023-06-23 10:34 | P.PN ---
Subjective Progress Note Date: 06/23/23 This patient is an 83- year old male who is status-post direct anterior left hip hemiarthroplasty on 06/21/23. Today is post-operative day #2. Patient is examined bedside with Dr. Ceballos. He is confused. Family member is bedside. He was up to the bedside chair yesterday. No new complaints. Objective - Vital Signs Vital signs: Vital Signs Temp 98.2 F 06/23/23 08:00 Pulse 92 06/23/23 09:27 Resp 16 06/23/23 08:00 BP 124/54 06/23/23 08:00 Pulse Ox 92 L 06/23/23 09:19 FiO2 Intake & Output 06/22/23 06/23/23 06/23/23 18:59 06:59 18:59 Intake Total 545 900 110 Output Total 350 375 Balance 195 525 110 Intake: IV 10 Invasive Line 2 10 Intake, IV Titration 300 Amount Sodium Chloride 0.9% 1, 300 000 ml @ 100 mls/hr IV . Q10H [facility] Rx#:[id number] Oral 535 600 110 Output: Urine 350 375 Other: Voiding Method Indwelling Catheter Indwelling Catheter Indwelling Catheter - Exam On examination, patient is lying in bed in no acute distress. He is confused. On inspection of the left hip, there is a clean, dry, intact surgical dressing in place. No bleeding or drainage through the dressing. Mild swelling of the thigh, thigh is soft and compressible. Motor and sensory function intact left lower extremity. Femoral nerve function intact. Left lower extremity warm and well perfused. Calf nontender. - Labs CBC & Chem 7: 06/23/23 06:53 06/23/23 06:53 Labs: Abnormal Lab Results - Last 24 Hours (Table) 06/23/23 06/23/23 Range/Units 06:53 06:53 RBC 3.26 L (4.30-5.90) m/uL Hgb 10.0 L (13.0-17.5) gm/dL Hct 30.8 L (39.0-53.0) % Chloride 113 H (98-107) mmol/L BUN 28 H (9-20) mg/dL Glucose 101 H (74-99) mg/dL Calcium 7.6 L (8.4-10.2) mg/dL AST 87 H (17-59) U/L Alkaline Phosphatase 26 L (38-126) U/L Total Protein 5.2 L (6.3-8.2) g/dL Albumin 2.6 L (3.5-5.0) g/dL Microbiology - Last 24 Hours (Table) 06/19/23 08:20 Blood Culture - Preliminary Blood 06/19/23 08:05 Blood Culture - Preliminary Blood Assessment and Plan Assessment: Status-post direct anterior left hip hemiarthroplasty on 06/21/23. Post-op day #2. Plan: - Weight bear to tolerance on operative extremity with a walker. Up with assistance only. Fall precautions. - Physical therapy for gait and balance training. - Keep operative dressings in place. - Pain management as needed. - Aspirin 81mg BID for DVT prophylaxis. - We will continue to follow patient peripherally as he remains inpatient. He is ok for discharge from orthopedic standpoint. He should follow up in the office in two weeks.
--- NOTE | 2023-06-23 12:17 | P.PN ---
Subjective Progress Note Date: 06/23/23 Principal diagnosis: Traumatic left femoral neck fracture post fall 83-year-old male patient with a history of dementia was brought into the emergency department after he was found outside and a small ditch. The patient was found approximately half a mile away from his residence. According to the family, the patient has dementia and episodes of confusion. usually, his sympt oms of confusion and dementia get worse at nighttime. He was found in a ditch around 4 AM this morning. Prior to that, he was in his house. Upon arrival to the emergency department, the patient was having hip pain and he was unable to answer questions appropriately. He was given Dilaudid and fentanyl in the emergency department. At the time of my evaluation, the patient was quite somnolent and sleepy. He was unable to answer any questions. A chest x-ray was done and the patient was found to have chronic scarring and a lung apices bilaterally. There is no evidence of any pneumonia. The patient is known to have COPD and the patient was initially placed on 4 L of oxygen nasal cannula a nd he was brought up to 10 L as the patient was found to be hypoxic. No significant tachypnea. Hemodynamically stable. CAT scan of the brain was done and the patient was found to have no acute process. There was some chronic lung specific white matter changes along with chronic small vessel ischemic changes. No evidence of any cervical spine fracture. Multiple or multilevel degenerative changes involving the cervical spine.X-ray of the lumbosacral spine showed no evidence of any fracture. There was moderate multilevel degenerative disc changes and facet arthropathy of the lumbar spine along with levoscoliosis of the lumbar spine. X-ray of the hip showed a left proximal femoral neck f racture. Computed tomography scan of the head was also done and the patient was found to have a fracture of the left femoral neck and fracture line extending from the subcu region of the superior femoral Neck junction and there was underlying osteopenia. The patient has a WBC count 12.1. Hemoglobin is at 13. Normal cognition profile. Normal electrolytes. Normal troponins. CPK was 244. Alcohol level was negative. On today's evaluation, the patient remains somnolent, lethargic, still unable to communicate. The patient has underlying dementia. The patient is currently down to 4 L of oxygen by nasal cannula. The patient was supposed to undergo surgery today. This was postponed to tomorrow. He is going to undergo a left hip ORIF. He did have an episode of atrial tachycardia for which he was given beta blockers. As mentioned earlier, he has significant cognitive impairments. Is related to his underlying dementia. The white cell count is at 12.5 with a hemoglobin 11.9 and a platelet count of 174. BUN is 19 with a creatinine 1.2 and his sodium levels is 144. UA is negative. Alcohol level is negative. LFTs are normal. CPKs 244. Chest x-ray shows COPD and is also limited bibasilar pulmonary infiltrates and the patient is currently on accommodation of Rocephin and Zithromax. He is also on DuoNeb nebulized treatments [id number]. IV fluids are running at a rate of 100 mL an hour. The patient is running a low- grade fever.The patient was also seen by cardiology. The patient was started on the Toprol 25 mg twice a day. The patient is sinus mechanism with atrial tachycardia and he was given IV Lopressor. On 06/21/2023, condition is essentially unchanged and the patient is on 4 L of oxygen by nasal cannula. The patient will be taken for surgery and left hip arthroplasty today. The patient's will have his surgery on the local anesthesia. The patient was placed on DVT prophylaxis with aspirin 82 mg by mouth twice a day. Orthopedic recommendation. He remains on IV fluids normal saline at the rate of 100 mL an hour. Dilaudid for pain control. IV cefazolin for surgical prophylaxis. White cycles of 12.5 with a hemoglobin 11.9. Patient was reevaluated today on 06/22/2023, seems to be doing well, he underwent uneventful surgery for his left hip fracture, patient is now postoperative day #1, he is confused, patient does have underlying dementia, does not seem in any distress. Patient actually had direct anterior left hip hemiarthroplasty, and the course has been relatively uneventful so far. Labs today were reviewed relatively normal CBC except for hemoglobin of 10.6 electrolytes are normal renal profile showed a BUN of 33 creatinine 1.24. Chest x-ray on admission showed small right-sided pleural effusion, and left base as well as right basilar atelectasis. 3 today on 06/23/2023, patient is status post direct anterior left hip hem iarthroplasty on 06/21/2023, he is now postoperative day #2. Patient is relatively asymptomatic, he is confused, and this is his baseline. Does not seem to be in any distress, nonetheless the patient is on 4 L nasal cannula with O2 saturation of 92% chest x-ray on admission showed small right-sided pleural effusion and a linear opacity at the right lung base consistent with atelectasis. Labs today showed evidence Of 7.9 hemoglobin is 10 Abnormal renal profile is normal bicarb is 24. Chest x-ray this morning is pending would like to have a follow-up on his chest x-ray from 06/20 as the patient seems to be on 4 L nasal cannula and O2 sats is marginal. Patient is not in any distress Objective - Vital Signs Vital signs: Vital Signs Temp 98.2 F 06/23/23 08:00 Pulse 92 06/23/23 09:27 Resp 16 06/23/23 08:00 BP 124/54 06/23/23 08:00 Pulse Ox 92 L 06/23/23 09:19 FiO2 Intake & Output 06/22/23 06/23/23 06/23/23 18:59 06:59 18:59 Intake Total 545 900 110 Output Total 350 375 Balance 195 525 110 Intake: IV 10 Invasive Line 2 10 Intake, IV Titration 300 Amount Sodium Chloride 0.9% 1, 300 000 ml @ 100 mls/hr IV . [facility]10H [facility] Rx#:[id number] Oral 535 600 110 Output: Urine 350 375 Other: Voiding Method Indwelling Catheter Indwelling Catheter Indwelling Catheter - Exam Physical Exam: Revealed an 83-year-old white male in no distress, confused, patient has underlying dementia, patient is on 4 L nasal cannula with O2 saturation 92% HEENT:[Neck is supple.] [No neck masses.] [No thyromegaly.] [No JVD.] Chest: [Diminished breath sound bilaterally no crackles or rhonchi or wheezes Cardiac Exam: [Normal S1 and S2, no S3 gallop, no murmur.] Abdomen: [Soft, nontender, no megaly, no rebound, no guarding, normal bowel sounds.] Extremities: [the left hip, there is a clean, dry, intact surgical dressing in place Neurological Exam: Pleasantly confused, otherwise unremarkable Psychiatric: Flat affect, patient is confused - Labs CBC & Chem 7: 06/23/23 06:53 06/23/23 06:53 Labs: Abnormal Lab Results - Last 24 Hours (Table) 06/23/23 06/23/23 Range/Units 06:53 06:53 RBC 3.26 L (4.30-5.90) m/uL Hgb 10.0 L (13.0-17.5) gm/dL Hct 30.8 L (39.0-53.0) % Chloride 113 H (98-107) mmol/L BUN 28 H (9-20) mg/dL Glucose 101 H (74-99) mg/dL Calcium 7.6 L (8.4-10.2) mg/dL AST 87 H (17-59) U/L Alkaline Phosphatase 26 L (38-126) U/L Total Protein 5.2 L (6.3-8.2) g/dL Albumin 2.6 L (3.5-5.0) g/dL Microbiology - Last 24 Hours (Table) 06/19/23 08:20 Blood Culture - Preliminary Blood 06/19/23 08:05 Blood Culture - Preliminary Blood Assessment and Plan Assessment: Impression: Status post direct anterior left hip hemiarthroplasty, postoperative day #2 Acute hypoxic respiratory failure with abnormal chest x-ray showing COPD and biapical scarring, and atelectasis doubt pneumonia Underlying COPD Underlying dementia Benign essential hypertension Dyslipidemia Chronic degenerative joint disease Recommendation: Continue oxygen and titrate accordingly Incentive spirometry Continue DVT prophylaxis Continue updrafts Follow-up chest x-ray today. Continue pain control management Resume cardiac meds Continue proton GI prophylaxis We'll continue to follow Time with Patient: Less than 30
--- NOTE | 2023-06-23 12:51 | XR ---
EXAMINATION TYPE: XR chest 1V portable DATE OF EXAM: 06/23/2023 12:45 PM COMPARISON: Chest radiographs from 06/20/2023 TECHNIQUE: XR chest 1V portable Frontal view of the chest. CLINICAL INDICATION:Male, 83 years old with history of low sao2; FINDINGS: Lungs/Pleura: No evidence of focal consolidation or pneumothorax. Blunting of the costophrenic angles is present. Pulmonary vascularity: Unremarkable. Heart/mediastinum: Cardiomediastinal silhouette is enlarged and stable. Musculoskeletal: No acute osseous pathology. There is fixation hardware in the lower cervical spine. IMPRESSION: COPD with Chronic interstitial changes. Bilateral pleural effusions with cardiomegaly correlate for congestive heart failure.
[2023-06-23] MEDS: DOXAZOSIN 4 MG TAB PO SCH (20:24)
[2023-06-23] MEDS: LOSARTAN 50 MG TAB PO SCH (20:24)
[2023-06-23] MEDS: ATORVASTATIN 10 MG TAB PO SCH (20:24)
[2023-06-23] MEDS: SENNOSIDES-DOCUSATE SODIUM 1 EACH TAB PO SCH (20:24)
[2023-06-24 06:15] LABS: ALT 21 U/L (4-49); AST 67 U/L (17-59); African American GFR (CKD) >90 (>60 ml/min/1.73 sqM); Albumin 2.3 g/dL (3.5-5.0); Alkaline Phosphatase 20 U/L (38-126); Anion Gap 3 mmol/L; Blood Urea Nitrogen 21 mg/dL (9-20); Calcium 7.3 mg/dL (8.4-10.2); Carbon Dioxide 24 mmol/L (22-30); Chloride 116 mmol/L (98-107); Glucose 108 mg/dL (74-99); Non-African American GFR(CKD) 81 (>60 ml/min/1.73 sqM); Sodium 143 mmol/L (137-145); Total Bilirubin 0.6 mg/dL (0.2-1.3); Total Protein 4.5 g/dL (6.3-8.2)
[2023-06-24 06:16] LABS: Basophils % (A) 0 %; Eosinophils # (A) 0.1 k/uL (0-0.7); Eosinophils % (A) 1 %; HCT 25.4 % (39.0-53.0); Lymphocytes # (A) 0.5 k/uL (1.0-4.8); Lymphocytes % (A) 6 %; MCH 30.6 pg (25.0-35.0); MCHC 32.9 g/dL (31.0-37.0); MCV 93.2 fL (80.0-100.0); Mean Platelet Volume 8.5; Monocytes # (A) 0.5 k/uL (0-1.0); Monocytes % (A) 7 %; Neutrophils # (A) 6.2 k/uL (1.3-7.7); Neutrophils % (A) 84 %; Platelet Count 170 k/uL (150-450); RBC 2.72 m/uL (4.30-5.90); RDW 13.3 % (11.5-15.5); WBC 7.3 k/uL (3.8-10.6)
[2023-06-24 06:37] LABS: HGB 8.3 gm/dL (13.0-17.5)
[2023-06-24] MEDS: SODIUM CHLORIDE 0.9% 1,000 ML IV SCH (06:44)
[2023-06-24] MEDS: METOPROLOL TARTRATE 25 MG TAB PO SCH ×2 (08:04→20:08)
[2023-06-24] MEDS: PANTOPRAZOLE 40 MG/10 ML VIAL IVP SCH (08:04)
[2023-06-24] MEDS: HEPARIN SODIUM,PORCINE 5,000 UNIT/ML 1 ML VIAL SQ SCH ×2 (08:04→20:08)
[2023-06-24] MEDS: ASPIRIN 81 MG PO SCH ×2 (08:04→20:08)
--- NOTE | 2023-06-24 08:24 | P.PN ---
Subjective Progress Note Date: 06/24/23 Principal diagnosis: The patient is here essentially status post hip repair. Postop day #3. He seems to have significant tachycardia when active. COPD is significant and is becoming more oxygen dependent. Currently on 5-6 L. Appreciate pulmonology input. Otherwise minimal pain. I suggested suspect element of dementia as well although he remembers me this morning and is able to follow commands. No voiding difficulties. Tera has been DC'd and he states no dysuria. No fever or chills Objective - Vital Signs Vital signs: Vital Signs Temp 98.2 F 06/24/23 04:00 Pulse 102 H 06/24/23 04:00 Resp 17 06/24/23 04:00 BP 119/64 06/24/23 04:00 Pulse Ox 95 06/24/23 04:00 FiO2 Intake & Output 06/23/23 06/24/23 06/24/23 18:59 06:59 18:59 Intake Total 470 Output Total 600 Balance -130 Intake: Oral 470 Output: Urine 600 Other: Voiding Method Indwelling Catheter # Voids 1 # Bowel Movements 1 - Constitutional General appearance: Present: thin - EENT Eyes: Absent: abnormal pupil - Neck Neck: Absent: lymphadenopathy - Respiratory Respiratory: bilateral: diminished - Cardiovascular Heart rate: 102 (Tachycardic) Rhythm: regular Heart sounds: normal: S1, S2 Abnormal Heart Sounds: Absent: S3 Gallop - Gastrointestinal General gastrointestinal: Present: soft. Absent: tenderness - Integumentary Integumentary: Absent: cellulitis - Psychiatric Psychiatric: Absent: intact judgment & insight - Labs CBC & Chem 7: 06/24/23 05:34 06/24/23 05:34 Labs: Abnormal Lab Results - Last 24 Hours (Table) 06/24/23 06/24/23 Range/Units 05:34 05:34 RBC 2.72 L (4.30-5.90) m/uL Hgb 8.3 L D (13.0-17.5) gm/dL Hct 25.4 L (39.0-53.0) % Lymphocytes # 0.5 L (1.0-4.8) k/uL Chloride 116 H (98-107) mmol/L BUN 21 H (9-20) mg/dL Glucose 108 H (74-99) mg/dL Calcium 7.3 L (8.4-10.2) mg/dL AST 67 H (17-59) U/L Alkaline Phosphatase 20 L (38-126) U/L Total Protein 4.5 L (6.3-8.2) g/dL Albumin 2.3 L (3.5-5.0) g/dL Assessment and Plan (1) Fall Current Visit: Yes Status: Acute Code(s): W19.XXXA - UNSPECIFIED FALL, INITIAL ENCOUNTER SNOMED Code(s): 6079034 (2) Fracture of femoral neck, left Current Visit: Yes Status: Acute Code(s): S72.002A - FRACTURE OF UNSP PART OF NECK OF LEFT FEMUR, INIT SNOMED Code(s): 9862571 (3) Hypoxia Current Visit: Yes Status: Acute Code(s): R09.02 - HYPOXEMIA SNOMED Code(s): 626321338 (4) Nicotine dependence Current Visit: Yes Status: Acute Code(s): F17.200 - NICOTINE DEPENDENCE, UNSPECIFIED, UNCOMPLICATED SNOMED Code(s): 03403411 (5) Pneumonia Current Visit: Yes Status: Acute Code(s): J18.9 - PNEUMONIA, UNSPECIFIED ORGANISM SNOMED Code(s): 981592628 Plan: The patient is doing quite well. Check NT proBNP today. Check CBC and CMP in a.m. Order echocardiogram to ascertain overall ejection fraction. He is on appropriate cardiac medications but his heart rate tends to be tachycardic with activity. Question element of deconditioning. Question need for cardiology assistance if no better. The patient is currently on beta sav and ARB. Prognosis is guarded. DC to rehab. Consult dietary for malnutrition elements.
[2023-06-24] MEDS: IPRATROPIUM-ALBUTEROL 3 ML NEB INHALATION SCH ×4 (09:18→19:54)
--- NOTE | 2023-06-24 10:54 | P.PN ---
Subjective Progress Note Date: 06/24/23 Principal diagnosis: Traumatic left femoral neck fracture post fall 83-year-old male patient with a history of dementia was brought into the emergency department after he was found outside and a small ditch. The patient was found approximately half a mile away from his residence. According to the family, the patient has dementia and episodes of confusion. usually, his sympt oms of confusion and dementia get worse at nighttime. He was found in a ditch around 4 AM this morning. Prior to that, he was in his house. Upon arrival to the emergency department, the patient was having hip pain and he was unable to answer questions appropriately. He was given Dilaudid and fentanyl in the emergency department. At the time of my evaluation, the patient was quite somnolent and sleepy. He was unable to answer any questions. A chest x-ray was done and the patient was found to have chronic scarring and a lung apices bilaterally. There is no evidence of any pneumonia. The patient is known to have COPD and the patient was initially placed on 4 L of oxygen nasal cannula a nd he was brought up to 10 L as the patient was found to be hypoxic. No significant tachypnea. Hemodynamically stable. CAT scan of the brain was done and the patient was found to have no acute process. There was some chronic lung specific white matter changes along with chronic small vessel ischemic changes. No evidence of any cervical spine fracture. Multiple or multilevel degenerative changes involving the cervical spine.X-ray of the lumbosacral spine showed no evidence of any fracture. There was moderate multilevel degenerative disc changes and facet arthropathy of the lumbar spine along with levoscoliosis of the lumbar spine. X-ray of the hip showed a left proximal femoral neck f racture. Computed tomography scan of the head was also done and the patient was found to have a fracture of the left femoral neck and fracture line extending from the subcu region of the superior femoral Neck junction and there was underlying osteopenia. The patient has a WBC count 12.1. Hemoglobin is at 13. Normal cognition profile. Normal electrolytes. Normal troponins. CPK was 244. Alcohol level was negative. On today's evaluation, the patient remains somnolent, lethargic, still unable to communicate. The patient has underlying dementia. The patient is currently down to 4 L of oxygen by nasal cannula. The patient was supposed to undergo surgery today. This was postponed to tomorrow. He is going to undergo a left hip ORIF. He did have an episode of atrial tachycardia for which he was given beta blockers. As mentioned earlier, he has significant cognitive impairments. Is related to his underlying dementia. The white cell count is at 12.5 with a hemoglobin 11.9 and a platelet count of 174. BUN is 19 with a creatinine 1.2 and his sodium levels is 144. UA is negative. Alcohol level is negative. LFTs are normal. CPKs 244. Chest x-ray shows COPD and is also limited bibasilar pulmonary infiltrates and the patient is currently on accommodation of Rocephin and Zithromax. He is also on DuoNeb nebulized treatments [id number]. IV fluids are running at a rate of 100 mL an hour. The patient is running a low- grade fever.The patient was also seen by cardiology. The patient was started on the Toprol 25 mg twice a day. The patient is sinus mechanism with atrial tachycardia and he was given IV Lopressor. On 06/21/2023, condition is essentially unchanged and the patient is on 4 L of oxygen by nasal cannula. The patient will be taken for surgery and left hip arthroplasty today. The patient's will have his surgery on the local anesthesia. The patient was placed on DVT prophylaxis with aspirin 82 mg by mouth twice a day. Orthopedic recommendation. He remains on IV fluids normal saline at the rate of 100 mL an hour. Dilaudid for pain control. IV cefazolin for surgical prophylaxis. White cycles of 12.5 with a hemoglobin 11.9. Patient was reevaluated today on 06/22/2023, seems to be doing well, he underwent uneventful surgery for his left hip fracture, patient is now postoperative day #1, he is confused, patient does have underlying dementia, does not seem in any distress. Patient actually had direct anterior left hip hemiarthroplasty, and the course has been relatively uneventful so far. Labs today were reviewed relatively normal CBC except for hemoglobin of 10.6 electrolytes are normal renal profile showed a BUN of 33 creatinine 1.24. Chest x-ray on admission showed small right-sided pleural effusion, and left base as well as right basilar atelectasis. 3 today on 06/23/2023, patient is status post direct anterior left hip hem iarthroplasty on 06/21/2023, he is now postoperative day #2. Patient is relatively asymptomatic, he is confused, and this is his baseline. Does not seem to be in any distress, nonetheless the patient is on 4 L nasal cannula with O2 saturation of 92% chest x-ray on admission showed small right-sided pleural effusion and a linear opacity at the right lung base consistent with atelectasis. Labs today showed evidence Of 7.9 hemoglobin is 10 Abnormal renal profile is normal bicarb is 24. Chest x-ray this morning is pending would like to have a follow-up on his chest x-ray from 06/20 as the patient seems to be on 4 L nasal cannula and O2 sats is marginal. Patient is not in any distress Evaluated today on 06/24/2023, patient is now postoperative day #3. Patient is confused but denies any shortness of breath denies any chest pain and denies any cough or wheezing denies any nausea vomiting or abdominal pain. A sitter is at bedside, patient refuses to eat his breakfast today. His chest x-ray is showing worsening atelectasis and possibly small bilateral pleural effusions clinically the patient is dry and dehydrated, he does have extremely dry mucous membranes hence I would hold on giving him any Lasix. Remains on 4 L nasal cannula with marginal oxygen saturations. CBC today is relatively unremarkable except for hemoglobin of 8.3 WBC count is normal,renal profile is normal. All his meds were reviewed. Objective - Vital Signs Vital signs: Vital Signs Temp 98.2 F 06/24/23 08:16 Pulse 72 06/24/23 09:27 Resp 18 06/24/23 09:27 BP 165/71 06/24/23 08:16 Pulse Ox 92 L 06/24/23 09:18 FiO2 Intake & Output 06/23/23 06/24/23 06/24/23 18:59 06:59 18:59 Intake Total 470 110 Output Total 600 Balance -130 110 Intake: Oral 470 110 Output: Urine 600 Other: Voiding Method Indwelling Catheter Indwelling Catheter # Voids 1 # Bowel Movements 1 - Exam Physical Exam: Revealed an 83-year-old white male in no distress, confused, patient has underlying dementia, on 2 L nasal cannula HEENT:[Neck is supple.] [No neck masses.] [No thyromegaly.] [No JVD.] Dry mucous membranes noted. Chest: [Diminished breath sound bilaterally no crackles or rhonchi or wheezes Cardiac Exam: [Normal S1 and S2, no S3 gallop, no murmur.] Abdomen: [Soft, nontender, no megaly, no rebound, no guarding, normal bowel sounds.] Extremities: [the left hip, there is a clean, dry, intact surgical dressing in place Neurological Exam: Pleasantly confused, otherwise unremarkable Psychiatric: Flat affect, patient is confused - Labs CBC & Chem 7: 06/24/23 05:34 06/24/23 05:34 Labs: Abnormal Lab Results - Last 24 Hours (Table) 06/24/23 06/24/23 Range/Units 05:34 05:34 RBC 2.72 L (4.30-5.90) m/uL Hgb 8.3 L D (13.0-17.5) gm/dL Hct 25.4 L (39.0-53.0) % Lymphocytes # 0.5 L (1.0-4.8) k/uL Chloride 116 H (98-107) mmol/L BUN 21 H (9-20) mg/dL Glucose 108 H (74-99) mg/dL Calcium 7.3 L (8.4-10.2) mg/dL AST 67 H (17-59) U/L Alkaline Phosphatase 20 L (38-126) U/L Total Protein 4.5 L (6.3-8.2) g/dL Albumin 2.3 L (3.5-5.0) g/dL Assessment and Plan Assessment: Impression: Status post direct anterior left hip hemiarthroplasty, postoperative day #3 Acute hypoxic respiratory failure with abnormal chest x-ray showing COPD and biapical scarring, and bibasilar atelectasis doubt pneumonia, will check pro- calcitonin level and decide whether the patient is to be on antibiotics for presumptive aspiration pneumonia Underlying COPD Underlying dementia Benign essential hypertension Dyslipidemia Chronic degenerative joint disease Recommendation: Continue oxygen and titrate accordingly Incentive spirometry [facility] x[facility]ray today was reviewed, worsening atelectasis and small pleural effusions no Continue pain control management Resume cardiac meds GI prophylaxis We'll continue to follow Time with Patient: Less than 30
[2023-06-24 11:26] VITALS: BMI 20.9
[2023-06-24] MEDS: DOXAZOSIN 4 MG TAB PO SCH (20:08)
[2023-06-24] MEDS: LOSARTAN 50 MG TAB PO SCH (20:08)
[2023-06-24] MEDS: ATORVASTATIN 10 MG TAB PO SCH (20:08)
[2023-06-24] MEDS: SENNOSIDES-DOCUSATE SODIUM 1 EACH TAB PO SCH (20:08)
[2023-06-24] MEDS: LORazepam 2 MG/ML INJ IV PRN (21:23)
[2023-06-24] MEDS: HYDROcodone/APAP 5-325MG 1 EACH TAB PO PRN (23:54)
[2023-06-25] MEDS: SODIUM CHLORIDE 0.9% 1,000 ML IV SCH ×2 (00:01→05:08)
--- NOTE | 2023-06-25 08:29 | P.PN ---
Subjective Progress Note Date: 06/25/23 Principal diagnosis: fall This is an 83-year-old male who was found in a ditch after a fall and emergency personnel found him. He was brought to the emergency room and found to have a left hip fracture. Patient has a history of COPD and is a chronic smoker. Workup in the emergency room also did show pneumonia. Yesterday patient underwent a left direct anterior hip hemiarthroplasty with Dr. Ceballos. He tolerated the procedure well. He is seen this morning sitting up in bed alert. He is able to follow commands, with only slight confusion noted. He denies any pain currently. 06/23/23 Patient is postop day 2 of left direct anterior hip hemiarthroplasty with Dr. Ceballos. He is seen sitting up in bed this morning. Continues to be somewhat alert and able to follow commands, with slight confusion noted. Plan is for placement for rehab at discharge. Patient still has Haley catheter, will discontinue that today and trial voiding on his own. Per patient he did not have any issues voiding prior to hospitalization. 06/25/2023 Patient seen laying in bed this morning with sitter at bedside. Patient is still confused. Nurse reports patient was very combative last night. Patient was straight cathed last night with an output of 700 mL. Case management has been working on finding placement for patient. Patient still remains on 4 L of oxygen. Lungs with more crackles today, but no lower extremity edema noted. Echo was completed on 06/20/23 and showed ejection fraction of 50-55%. Objective - Vital Signs Vital signs: Vital Signs Temp 98.2 F 06/25/23 04:00 Pulse 87 06/25/23 04:00 Resp 18 06/25/23 04:00 BP 150/75 06/25/23 04:00 Pulse Ox 92 L 06/25/23 04:00 FiO2 Intake & Output 06/24/23 06/25/23 06/25/23 18:59 06:59 18:59 Intake Total 110 10 Output Total 820 Balance 110 -810 Weight 58.967 kg Intake: IV 10 Invasive Line 3 10 Oral 110 Output: Urine 820 Uretheral (Haley) 720 Other: Voiding Method Urinal Urinal Diaper # Bowel Movements 1 - Constitutional General appearance: Present: no acute distress - EENT Eyes: Present: PERRLA - Neck Neck: Present: normal ROM. Absent: lymphadenopathy, rigidity - Respiratory Respiratory: bilateral: rales - Cardiovascular Rhythm: regular Heart sounds: normal: S1, S2 - Gastrointestinal General gastrointestinal: Present: soft. Absent: tenderness - Integumentary Integumentary: Present: normal, normal turgor - Musculoskeletal Musculoskeletal: Present: generalized weakness - Psychiatric Psychiatric Comment(s): Alert to person - Labs CBC & Chem 7: 06/24/23 05:34 06/24/23 05:34 Labs: Abnormal Lab Results - Last 24 Hours (Table) 06/24/23 Range/Units 05:34 Procalcitonin 0.23 H (0.02-0.09) ng/mL Microbiology - Last 24 Hours (Table) 06/19/23 08:20 Blood Culture - Final Blood 06/19/23 08:05 Blood Culture - Final Blood Assessment and Plan (1) Fall Current Visit: Yes Status: Acute Code(s): W19.XXXA - UNSPECIFIED FALL, INITIAL ENCOUNTER SNOMED Code(s): 6338517 (2) Fracture of femoral neck, left Current Visit: Yes Status: Acute Code(s): S72.002A - FRACTURE OF UNSP PART OF NECK OF LEFT FEMUR, INIT SNOMED Code(s): 2818084 (3) Hypoxia Current Visit: Yes Status: Acute Code(s): R09.02 - HYPOXEMIA SNOMED Code(s): 777800288 (4) Nicotine dependence Current Visit: Yes Status: Acute Code(s): F17.200 - NICOTINE DEPENDENCE, UNSPECIFIED, UNCOMPLICATED SNOMED Code(s): 87493795 (5) Pneumonia Current Visit: Yes Status: Acute Code(s): J18.9 - PNEUMONIA, UNSPECIFIED ORGANISM SNOMED Code(s): 945522290 (6) Confusion Current Visit: Yes Status: Acute Code(s): R41.0 - DISORIENTATION, UNSPECIFIED SNOMED Code(s): 753118136 Plan: Check CBC and CMP in the morning. Order Lasix 20 mg IV once. Patient may need Haley reinserted, nursing staff to monitor and bladder scan as needed Consult neurology to evaluate confusion, possible dementia. Continue to work on placement. Patient seen and evaluated by nurse practitioner, physician in agreement with plan
[2023-06-25] MEDS ORDERED: FUROSEMIDE 10 MG/ML 2 ML VIAL IV ONE (08:30)
[2023-06-25 08:35] LABS: HCT 27.3 % (39.0-53.0); Hypochromasia Slight; MCH 31.3 pg (25.0-35.0); MCV 94.9 fL (80.0-100.0); Mean Platelet Volume 8.4; Platelet Count 233 k/uL (150-450); RBC 2.87 m/uL (4.30-5.90); RDW 13.5 % (11.5-15.5); WBC 8.1 k/uL (3.8-10.6)
[2023-06-25 08:47] LABS: ALT 35 U/L (4-49); AST 68 U/L (17-59); African American GFR (CKD) >90 (>60 ml/min/1.73 sqM); Albumin 2.3 g/dL (3.5-5.0); Alkaline Phosphatase 25 U/L (38-126); Anion Gap 1 mmol/L; Blood Urea Nitrogen 21 mg/dL (9-20); Calcium 7.4 mg/dL (8.4-10.2); Carbon Dioxide 29 mmol/L (22-30); Chloride 115 mmol/L (98-107); Glucose 101 mg/dL (74-99); Non-African American GFR(CKD) 80 (>60 ml/min/1.73 sqM); Potassium 4.2 mmol/L (3.5-5.1); Sodium 145 mmol/L (137-145); Total Bilirubin 0.5 mg/dL (0.2-1.3); Total Protein 4.7 g/dL (6.3-8.2)
[2023-06-25] MEDS: IPRATROPIUM-ALBUTEROL 3 ML NEB INHALATION SCH ×4 (09:50→20:05)
[2023-06-25] MEDS: PANTOPRAZOLE 40 MG/10 ML VIAL IVP SCH (10:29)
[2023-06-25] MEDS: HEPARIN SODIUM,PORCINE 5,000 UNIT/ML 1 ML VIAL SQ SCH ×2 (10:40→20:03)
[2023-06-25] MEDS: ASPIRIN 81 MG PO SCH ×2 (10:40→20:03)
[2023-06-25] MEDS: METOPROLOL TARTRATE 25 MG TAB PO SCH ×2 (10:40→20:03)
[2023-06-25] MEDS: PIPERACILLIN-TAZOBACTAM 3.375 GM in SODIUM CHLORIDE 0.9% 100 ML IVPB SCH ×3 (10:40→23:17)
--- NOTE | 2023-06-25 13:18 | P.PN ---
Subjective Progress Note Date: 06/25/23 Principal diagnosis: Traumatic left femoral neck fracture post fall 83-year-old male patient with a history of dementia was brought into the emergency department after he was found outside and a small ditch. The patient was found approximately half a mile away from his residence. According to the family, the patient has dementia and episodes of confusion. usually, his sympt oms of confusion and dementia get worse at nighttime. He was found in a ditch around 4 AM this morning. Prior to that, he was in his house. Upon arrival to the emergency department, the patient was having hip pain and he was unable to answer questions appropriately. He was given Dilaudid and fentanyl in the emergency department. At the time of my evaluation, the patient was quite somnolent and sleepy. He was unable to answer any questions. A chest x-ray was done and the patient was found to have chronic scarring and a lung apices bilaterally. There is no evidence of any pneumonia. The patient is known to have COPD and the patient was initially placed on 4 L of oxygen nasal cannula a nd he was brought up to 10 L as the patient was found to be hypoxic. No significant tachypnea. Hemodynamically stable. CAT scan of the brain was done and the patient was found to have no acute process. There was some chronic lung specific white matter changes along with chronic small vessel ischemic changes. No evidence of any cervical spine fracture. Multiple or multilevel degenerative changes involving the cervical spine.X-ray of the lumbosacral spine showed no evidence of any fracture. There was moderate multilevel degenerative disc changes and facet arthropathy of the lumbar spine along with levoscoliosis of the lumbar spine. X-ray of the hip showed a left proximal femoral neck f racture. Computed tomography scan of the head was also done and the patient was found to have a fracture of the left femoral neck and fracture line extending from the subcu region of the superior femoral Neck junction and there was underlying osteopenia. The patient has a WBC count 12.1. Hemoglobin is at 13. Normal cognition profile. Normal electrolytes. Normal troponins. CPK was 244. Alcohol level was negative. On today's evaluation, the patient remains somnolent, lethargic, still unable to communicate. The patient has underlying dementia. The patient is currently down to 4 L of oxygen by nasal cannula. The patient was supposed to undergo surgery today. This was postponed to tomorrow. He is going to undergo a left hip ORIF. He did have an episode of atrial tachycardia for which he was given beta blockers. As mentioned earlier, he has significant cognitive impairments. Is related to his underlying dementia. The white cell count is at 12.5 with a hemoglobin 11.9 and a platelet count of 174. BUN is 19 with a creatinine 1.2 and his sodium levels is 144. UA is negative. Alcohol level is negative. LFTs are normal. CPKs 244. Chest x-ray shows COPD and is also limited bibasilar pulmonary infiltrates and the patient is currently on accommodation of Rocephin and Zithromax. He is also on DuoNeb nebulized treatments [id number]. IV fluids are running at a rate of 100 mL an hour. The patient is running a low- grade fever.The patient was also seen by cardiology. The patient was started on the Toprol 25 mg twice a day. The patient is sinus mechanism with atrial tachycardia and he was given IV Lopressor. On 06/21/2023, condition is essentially unchanged and the patient is on 4 L of oxygen by nasal cannula. The patient will be taken for surgery and left hip arthroplasty today. The patient's will have his surgery on the local anesthesia. The patient was placed on DVT prophylaxis with aspirin 82 mg by mouth twice a day. Orthopedic recommendation. He remains on IV fluids normal saline at the rate of 100 mL an hour. Dilaudid for pain control. IV cefazolin for surgical prophylaxis. White cycles of 12.5 with a hemoglobin 11.9. Patient was reevaluated today on 06/22/2023, seems to be doing well, he underwent uneventful surgery for his left hip fracture, patient is now postoperative day #1, he is confused, patient does have underlying dementia, does not seem in any distress. Patient actually had direct anterior left hip hemiarthroplasty, and the course has been relatively uneventful so far. Labs today were reviewed relatively normal CBC except for hemoglobin of 10.6 electrolytes are normal renal profile showed a BUN of 33 creatinine 1.24. Chest x-ray on admission showed small right-sided pleural effusion, and left base as well as right basilar atelectasis. 3 today on 06/23/2023, patient is status post direct anterior left hip hem iarthroplasty on 06/21/2023, he is now postoperative day #2. Patient is relatively asymptomatic, he is confused, and this is his baseline. Does not seem to be in any distress, nonetheless the patient is on 4 L nasal cannula with O2 saturation of 92% chest x-ray on admission showed small right-sided pleural effusion and a linear opacity at the right lung base consistent with atelectasis. Labs today showed evidence Of 7.9 hemoglobin is 10 Abnormal renal profile is normal bicarb is 24. Chest x-ray this morning is pending would like to have a follow-up on his chest x-ray from 06/20 as the patient seems to be on 4 L nasal cannula and O2 sats is marginal. Patient is not in any distress Evaluated today on 06/24/2023, patient is now postoperative day #3. Patient is confused but denies any shortness of breath denies any chest pain and denies any cough or wheezing denies any nausea vomiting or abdominal pain. A sitter is at bedside, patient refuses to eat his breakfast today. His chest x-ray is showing worsening atelectasis and possibly small bilateral pleural effusions clinically the patient is dry and dehydrated, he does have extremely dry mucous membranes hence I would hold on giving him any Lasix. Remains on 4 L nasal cannula with marginal oxygen saturations. CBC today is relatively unremarkable except for hemoglobin of 8.3 WBC count is normal,renal profile is normal. All his meds were reviewed. Reevaluated today on 06/25/2023, he is now postoperative day #4. Remains confuse d, but does not seem to be in distress, on 2 L nasal cannula with O2 saturation 93%, patient has some difficulty clearing his secretions, when asked to cough, the patient will cough but unable to clear any secretions and he seems to be significantly congested. His pro-calcitonin level came back elevated and considering his clinical findings, considering his chest x-ray findings, I am recommending that the patient goes now on Zosyn for presumptive pneumonia involving the lower lobes. Patient also received diuretics for his elevated BNP level which is 10,900 yesterday Objective - Vital Signs Vital signs: Vital Signs Temp 99.1 F 06/25/23 10:35 Pulse 84 06/25/23 10:35 Resp 16 06/25/23 10:35 BP 153/62 06/25/23 10:35 Pulse Ox 93 L 06/25/23 10:35 FiO2 Intake & Output 06/24/23 06/25/23 06/25/23 18:59 06:59 18:59 Intake Total 110 10 160 Output Total 820 Balance 110 -810 160 Weight 58.967 kg Intake: IV 10 Invasive Line 3 10 Intake, IV Titration 160 Amount Piperacillin-Tazobactam 3 100 .375 gm In Sodium Chloride 0.9% 100 ml @ 25 mls/hr IVPB Q8HR [facility] Rx# :[id number] Sodium Chloride 0.9% 1, 60 000 ml @ 0 mls/hr IV .[facility] Rx#:[id number] Oral 110 Output: Urine 820 Uretheral (Haley) 720 Other: Voiding Method Urinal Urinal Urinal Diaper Diaper # Bowel Movements 1 - Exam Physical Exam: Revealed an 83-year-old white male in no distress, confused, patient has underlying dementia, on 2 L nasal cannula HEENT:[Neck is supple.] [No neck masses.] [No thyromegaly.] [No JVD.] Dry mucous membranes noted. Chest: [Crackles at the bases, patient is noted to have difficulty clearing secretions Cardiac Exam: [Normal S1 and S2, no S3 gallop, no murmur.] Abdomen: [Soft, nontender, no megaly, no rebound, no guarding, normal bowel sounds.] Extremities: [the left hip, there is a clean, dry, intact surgical dressing in place Neurological Exam: Pleasantly confused, otherwise unremarkable Psychiatric: Flat affect, patient is confused - Labs CBC & Chem 7: 06/25/23 07:54 06/25/23 07:54 Labs: Abnormal Lab Results - Last 24 Hours (Table) 06/24/23 06/25/23 06/25/23 Range/Units 05:34 07:54 07:54 RBC 2.87 L (4.30-5.90) m/uL Hgb 9.0 L (13.0-17.5) gm/dL Hct 27.3 L (39.0-53.0) % Chloride 115 H (98-107) mmol/L BUN 21 H (9-20) mg/dL Glucose 101 H (74-99) mg/dL Calcium 7.4 L (8.4-10.2) mg/dL AST 68 H (17-59) U/L Alkaline Phosphatase 25 L (38-126) U/L Total Protein 4.7 L (6.3-8.2) g/dL Albumin 2.3 L (3.5-5.0) g/dL Procalcitonin 0.23 H (0.02-0.09) ng/mL Microbiology - Last 24 Hours (Table) 06/19/23 08:20 Blood Culture - Final Blood 06/19/23 08:05 Blood Culture - Final Blood Assessment and Plan Assessment: Impression: Status post direct anterior left hip hemiarthroplasty, postoperative day #4 Acute hypoxic respiratory failure with abnormal chest x-ray showing COPD and biapical scarring, suspect pneumonia considering his pro-calcitonin level is elevated, likely aspiration pneumonia Underlying COPD Underlying dementia Benign essential hypertension Dyslipidemia Chronic degenerative joint disease Recommendation: Start patient on Zosyn Continue oxygen and titrate accordingly Incentive spirometry Continue DVT prophylaxis Continue updrafts Continue pain control management Resume cardiac meds, gentle diuresis GI prophylaxis We'll continue to follow Time with Patient: Less than 30
[2023-06-25] MEDS: SENNOSIDES-DOCUSATE SODIUM 1 EACH TAB PO SCH (20:03)
[2023-06-25] MEDS: LOSARTAN 50 MG TAB PO SCH (20:03)
[2023-06-25] MEDS: ATORVASTATIN 10 MG TAB PO SCH (20:03)
[2023-06-25] MEDS: DOXAZOSIN 4 MG TAB PO SCH (20:03)
[2023-06-25] MEDS: LORazepam 2 MG/ML INJ IV PRN (20:50)
[2023-06-25] MEDS ORDERED: QUEtiapine 25 MG TAB PO SCH (21:00)
[2023-06-26 06:16] LABS: Basophils % (A) 0 %; Eosinophils # (A) 0.4 k/uL (0-0.7); Eosinophils % (A) 4 %; HCT 28.3 % (39.0-53.0); HGB 9.3 gm/dL (13.0-17.5); Lymphocytes # (A) 0.9 k/uL (1.0-4.8); Lymphocytes % (A) 10 %; MCH 30.7 pg (25.0-35.0); MCV 93.2 fL (80.0-100.0); Monocytes # (A) 0.6 k/uL (0-1.0); Monocytes % (A) 7 %; Neutrophils % (A) 78 %; Platelet Count 299 k/uL (150-450); RBC 3.03 m/uL (4.30-5.90); RDW 13.5 % (11.5-15.5); WBC 8.9 k/uL (3.8-10.6)
[2023-06-26 06:23] LABS: ALT 36 U/L (4-49); AST 52 U/L (17-59); African American GFR (CKD) 75 (>60 ml/min/1.73 sqM); Albumin 2.4 g/dL (3.5-5.0); Alkaline Phosphatase 28 U/L (38-126); Anion Gap 1 mmol/L; Blood Urea Nitrogen 22 mg/dL (9-20); Calcium 7.9 mg/dL (8.4-10.2); Carbon Dioxide 32 mmol/L (22-30); Chloride 113 mmol/L (98-107); Glucose 103 mg/dL (74-99); Non-African American GFR(CKD) 65 (>60 ml/min/1.73 sqM); Sodium 146 mmol/L (137-145); Total Bilirubin 0.7 mg/dL (0.2-1.3); Total Protein 4.9 g/dL (6.3-8.2)
[2023-06-26] MEDS: SODIUM CHLORIDE 0.9% 1,000 ML IV SCH ×2 (08:26→10:15)
[2023-06-26] MEDS: METOPROLOL TARTRATE 50 MG TAB PO SCH ×2 (08:50→20:04)
[2023-06-26] MEDS: PANTOPRAZOLE 40 MG/10 ML VIAL IVP SCH (08:50)
[2023-06-26] MEDS: HEPARIN SODIUM,PORCINE 5,000 UNIT/ML 1 ML VIAL SQ SCH ×2 (08:50→20:05)
[2023-06-26] MEDS: PIPERACILLIN-TAZOBACTAM 3.375 GM in SODIUM CHLORIDE 0.9% 100 ML IVPB SCH ×2 (08:50→16:43)
[2023-06-26] MEDS: ASPIRIN 81 MG PO SCH ×2 (08:50→20:04)
--- NOTE | 2023-06-26 08:50 | P.PN ---
Subjective Principal diagnosis: The patient is here essentially status post hip repair. Postop day #3. He seems to have significant tachycardia when active. COPD is significant and is becoming more oxygen dependent. Currently on 5-6 L. Appreciate pulmonology input. Otherwise minimal pain. I suggested suspect element of dementia as well although he remembers me this morning and is able to follow commands. Haley has been restarted. He is developed paroxysmal atrial fibrillation while at this hospitalization. I'll consult cardiology. Appreciate neurology input. Objective - Vital Signs Vital signs: Vital Signs Temp 98.7 F 06/25/23 20:00 Pulse 95 06/26/23 04:00 Resp 16 06/26/23 04:00 BP 132/59 06/26/23 04:00 Pulse Ox 92 L 06/26/23 04:00 FiO2 Intake & Output 06/25/23 06/26/23 06/26/23 18:59 06:59 18:59 Intake Total 400 Output Total 1550 525 Balance -1150 -525 Weight 58.967 kg Intake: Intake, IV Titration 160 Amount Piperacillin-Tazobactam 3 100 .375 gm In Sodium Chloride 0.9% 100 ml @ 25 mls/hr IVPB Q8HR [facility] Rx# :[id number] Sodium Chloride 0.9% 1, 60 000 ml @ 0 mls/hr IV .[facility] Rx#:[id number] Oral 240 Output: Urine 1550 525 Uretheral (Haley) 1050 Other: Voiding Method Indwelling Catheter Indwelling Catheter - Constitutional General appearance: Present: no acute distress, thin - EENT Eyes: Absent: abnormal pupil - Neck Neck: Absent: lymphadenopathy - Respiratory Respiratory: bilateral: diminished - Cardiovascular Rhythm: regular Heart sounds: normal: S1, S2 Abnormal Heart Sounds: Absent: S3 Gallop - Gastrointestinal General gastrointestinal: Present: soft. Absent: tenderness - Integumentary Integumentary: Absent: cellulitis - Psychiatric Psychiatric: Absent: A&O x's 3 - Labs CBC & Chem 7: 06/26/23 05:52 06/26/23 05:52 Labs: Abnormal Lab Results - Last 24 Hours (Table) 06/26/23 06/26/23 Range/Units 05:52 05:52 RBC 3.03 L (4.30-5.90) m/uL Hgb 9.3 L (13.0-17.5) gm/dL Hct 28.3 L (39.0-53.0) % Lymphocytes # 0.9 L (1.0-4.8) k/uL Sodium 146 H (137-145) mmol/L Chloride 113 H (98-107) mmol/L Carbon Dioxide 32 H (22-30) mmol/L BUN 22 H (9-20) mg/dL Glucose 103 H (74-99) mg/dL Calcium 7.9 L (8.4-10.2) mg/dL Alkaline Phosphatase 28 L (38-126) U/L Total Protein 4.9 L (6.3-8.2) g/dL Albumin 2.4 L (3.5-5.0) g/dL Assessment and Plan (1) Fall Current Visit: Yes Status: Acute Code(s): W19.XXXA - UNSPECIFIED FALL, INITIAL ENCOUNTER SNOMED Code(s): 6130030 (2) Fracture of femoral neck, left Current Visit: Yes Status: Acute Code(s): S72.002A - FRACTURE OF UNSP PART OF NECK OF LEFT FEMUR, INIT SNOMED Code(s): 7959232 (3) Hypoxia Current Visit: Yes Status: Acute Code(s): R09.02 - HYPOXEMIA SNOMED Code(s): 383527305 (4) Nicotine dependence Current Visit: Yes Status: Acute Code(s): F17.200 - NICOTINE DEPENDENCE, UNSPECIFIED, UNCOMPLICATED SNOMED Code(s): 43419084 (5) Pneumonia Current Visit: Yes Status: Acute Code(s): J18.9 - PNEUMONIA, UNSPECIFIED ORGANISM SNOMED Code(s): 573788492 Plan: The patient seems fatigued today. New onset paroxysmal atrial fibrillation Check CBC and CMP in a.m. He is on appropriate cardiac medications but his heart rate tends to be tachycardic with activity. Question element of deconditioning. Beta sav has been titrated. Prognosis is guarded. DC to rehab. Consult dietary for malnutrition elements. Time with Patient: Greater than 30
[2023-06-26] MEDS: IPRATROPIUM-ALBUTEROL 3 ML NEB INHALATION SCH ×4 (09:23→19:51)
--- NOTE | 2023-06-26 11:09 | P.CNNES ---
History of Present Illness Consult date: 06/25/23 Requesting physician: Lida Snyder Reason for Consult: Confusion/dementia? History of Present Illness: Patient is a 83-year-old male was brought to the hospital by ambulance on 06/19/2023 for altered mental status. As per EMS flow sheet, when they arrived, they were told by the neighbor said patient was found in the neighboring yard, laying in the driveway and pinning of hip pain. Patient should was found approximately 5-6 feet from patient next to an approximate 1-1/2 deep trench. Patient was converted mild and that following a recent rainstorm. Patient believed that he was with his friends in the few him out of the car and went back to [place] leaving him outside the dark screaming for help 4 hours. Patient was only alert to self and date of . Patient knew the numerics for his address but not the street and he believes that he lives in [place]. Patient asked where his was. EMS felt patient may have dementia or Alzheimer's. No odor of alcohol on the patient. Patient's left eye was closed and closing green secretions. His left hip was painful with palpation and guarding. He could move his foot but not his leg because of pain. No shortening or rotation noted. EKG reveals atrial fibrillation. Patient denied any neck pain or back pain. Patient's vitals at the scene was blood pressure 117/75, pulse rate 108, respiration 22, saturation 92% and blood glucose 150 mg/dL. Patient was brought to the hospital. Blood pressure on arrival was 129/69 temperature 97.2. Blood test shows the BBC 12.1 hemoglobin 13.0, normal platelets, PT/PTT, normal CMP. CK was 244. Troponin negative. UA negative, blood alcohol level negative, urine legionella negative. Computed tomography scan of head and cervical spine showed no acute intracranial process. Nonspecific white matter changes, likely secondary to chronic small vessel ischemic disease. No evidence of cervical spine fracture. Postsurgical changes from ACDF C5 to C7. Hardware appears intact. Mild to moderate multilevel degenerative disc disease. COPD changes. EKG shows sinus tachycardia. Chest x-ray revealed patchy bilateral upper lung reticular opacities. Correlate for atypical pneumonia. COPD changes. Pelvic x-ray revealed acute mildly displaced fracture of the left proximal femoral neck. No dislocation. Moderate osteoarthritic changes of both hips. X-ray of the left hip revealed acute mildly displaced left proximal femoral neck fracture. Lumbar spine x-ray showed no acute fracture or dislocation of the lumbar spine. Moderate multilevel degenerative disc disease and facet arthropathy of the lum bar spine. Levoscoliotic curvature of the lumbar spine. CT of the hip showed impacted of like fracture of the left femoral neck. Osteopenia. 2-D echo revealed normal left ventricle systolic function with EF 50-55%. No obvious regional wall motion abnormalities. Left atrial size is normal. Patient had undergone left hip hemiarthroplasty on 06/21/2023. Patient's son was present, who provided the history. Patient's son mentions that patient's mentation at baseline is usually normal, except when he takes sleeping pill Eszopiclone 3 mg tablet, he gets confused for the day. If he sleeps well, he is better. Patient's son believes that he became confused, went outside at around 3:30 AM, and tripped on the driveway and fell breaking his hip. At baseline he does not use any assistive device. Patient's son states that he was found only 100 yards from his home. He says that he talk to the patient at 2 AM and he was fine. He went to sleep at 2:30 AM and patient sometimes between 2:30 AM to 3:30 AM went outside. He does not know how long he was laying outside for. Patient's son mentions that his saturation was in 70s when EMS arrived. Patient's son mentions that he is usually remembers names of his friends and family and neighbors that he frequently sees. Sometimes he may get confused about the neighbors. Yesterday he was confused, wanted to go to [place]. He was talking something about yellow cards. Patient's son states that only if he does not have a good night sleep, then he is more forgetful. However sleeping pill makes him more confused the next day. Patient is oriented to place, but the days run together and he does not care about time. Patient has history of neck fusion in the past. Patient has smoked 1 pack per day for 70 years. Recently he has cut back to smoking one pack every 3 days. No history of alcohol use. Telemetry monitoring showing sinus rhythm, atrial fibrillation sometimes has rapid ventricular rate in the 170s. Some PVCs and PACs. Review of Systems Constitutional: Reports chills, Reports sweats, Reports weight loss, Denies fever Eyes: denies blurred vision, denies discharge, denies pain Ears: bilateral: decreased hearing, deny: ear discharge, earache Ears, nose, mouth and throat: Denies headache, Denies sore throat Cardiovascular: Reports shortness of breath, Denies chest pain Respiratory: Reports cough, Reports excessive sputum, Reports wheezing Gastrointestinal: Reports diarrhea, Denies abdominal pain, Denies nausea, Denies vomiting Musculoskeletal: Reports low back pain, Reports neck pain, Denies myalgias Integumentary: Denies pruritus, Denies rash Neurological: Reports as per HPI Psychiatric: Reports irritability, Denies anxiety, Denies depression Endocrine: Reports fatigue, Reports weight change Hematologic/Lymphatic: Reports easy bruising, Denies easy bleeding Past Medical History Past Medical History: Unable to Obtain, Dementia, Hyperlipidemia, Hypertension, Prostate Disorder History of Any Multi-Drug Resistant Organisms: Unobtainable Past Surgical History: Unable to Obtain Past Psychological History: Unable to Obtain Smoking Status: Unknown if ever smoked Past Alcohol Use History: Unable to Obtain Past Drug Use History: Unable to Obtain Medications and Allergies Home Medications Medication Instructions Recorded Confirmed Type Candesartan [Atacand] 16 mg PO HS 06/19/23 06/19/23 History Doxazosin [Cardura] 4 mg PO HS 06/19/23 06/19/23 History Eszopiclone 3 mg PO HS 06/19/23 06/19/23 History Simvastatin [Zocor] 10 mg PO HS 06/19/23 06/19/23 History Aspirin 81 mg PO BID 30 Days #60 tab 06/24/23 Rx Allergies Allergy/AdvReac Type Severity Reaction Status Date / Time No Known Allergies Allergy Unverified 06/19/23 06:50 Physical Examination - Vital Signs Vital Signs: Vital Signs Temp Pulse Pulse Resp BP Pulse Ox 06/25/23 15:35 80 18 06/25/23 15:28 84 18 06/25/23 14:00 84 16 06/25/23 10:35 99.1 F 84 16 153/62 93 L 06/25/23 09:56 85 18 06/25/23 09:50 83 18 97 06/25/23 08:00 84 16 06/25/23 04:00 98.2 F 87 18 150/75 92 L 06/24/23 23:51 99.4 F 91 18 157/71 92 L 06/24/23 20:00 98.4 F 104 H 18 147/79 92 L Intake and Output 06/25/23 06/25/23 06/25/23 06:59 14:59 22:59 Intake Total 400 Output Total 820 Balance -820 400 Intake: Intake, IV Titration 160 Amount Piperacillin-Tazobactam 3 100 .375 gm In Sodium Chloride 0.9% 100 ml @ 25 mls/hr IVPB Q8HR [facility] Rx# :[id number] Sodium Chloride 0.9% 1, 60 000 ml @ 0 mls/hr IV .[facility] Rx#:[id number] Oral 240 Output: Urine 820 Uretheral (Haley) 720 Other: Voiding Method Urinal Indwelling Catheter Diaper # Bowel Movements 1 Weight 58.967 kg Patient is an elderly male, very pleasant, appears to be somewhat in respiratory distress, short of breath to difficulty breathing, coughing with some phlegm. Patient on asking questions became alert awake. Patient knows his date of , but thinks it is February 1938. He knows he is in a medical building in [facility]. He does not follow politics, therefore does not know the name of the president. Speech and language functions are normal. Patient can name and repeat very well. No aphasia or dysarthria. Attention, concentration is slightly impaired and fund of knowledge is limited. Detail cognitive function testing deferred at this time as patient is delirious from underlying medical condition. On cranial nerve examination, pupils are equal, round and reacting to light, visual zelaya are full on confrontation, with no neglect on double simultaneous stimulation. Extraocular muscles are intact with no nystagmus. Face is symmetric, tongue protrudes to the midline. Palatal elevation and sensation normal, hearing is moderately decreased and shoulder shrug normal, facial sensation normal. On muscle strength testing, there is no pronator drift and the strength is normal in arms and legs distally and proximally. Left leg not checked. Ankle appears normal. Deep tendon reflexes are symmetric about 1+ and plantars are downgoing. Sensory to touch is equal with no neglect on double simultaneous stimulation. Cerebellar function showed tremors but no ataxia for [id number] testing. Tone and bulk of muscles normal. Gait deferred.. On general examination, there is no carotid bruit or murmur, S1-S2 audible. Chest is clear on consultation. Abdomen is soft nontender. No organomegaly, bowel sounds present. Peripheral pulses are present. No edema. Results - Laboratory Findings CBC and BMP: 06/26/23 05:52 06/26/23 05:52 Abnormal Lab Findings: Abnormal Labs 06/19/23 06/19/23 06/19/23 04:54 04:54 17:08 WBC 12.1 H RBC 4.29 L Hgb Hct MCHC Neutrophils # 10.0 H Lymphocytes # Chloride BUN Glucose 116 H Calcium Magnesium AST Alkaline Phosphatase 32 L Creatine Kinase 244 H Total Protein Albumin Albumin/Globulin Ratio Procalcitonin Urine Protein Trace H 06/20/23 06/20/23 06/22/23 05:34 05:34 09:08 WBC 12.52 H 10.9 H RBC 3.97 L 3.45 L Hgb 11.9 L 10.6 L Hct 38.5 L 33.0 L MCHC 30.9 L Neutrophils # 9.6 H Lymphocytes # 0.5 L Chloride BUN Glucose Calcium 8.2 L Magnesium AST 93 H Alkaline Phosphatase 20 L Creatine Kinase Total Protein 5.6 L Albumin 3.3 L Albumin/Globulin Ratio 1.43 L Procalcitonin Urine Protein 06/22/23 06/23/23 06/23/23 09:08 06:53 06:53 WBC RBC 3.26 L Hgb 10.0 L Hct 30.8 L MCHC Neutrophils # Lymphocytes # Chloride 113 H 113 H BUN 33 H 28 H Glucose 114 H 101 H Calcium 7.6 L 7.6 L Magnesium 2.4 H AST 87 H Alkaline Phosphatase 26 L Creatine Kinase Total Protein 5.2 L Albumin 2.6 L Albumin/Globulin Ratio Procalcitonin Urine Protein 06/24/23 06/24/23 06/24/23 05:34 05:34 05:34 WBC RBC 2.72 L Hgb 8.3 L D Hct 25.4 L MCHC Neutrophils # Lymphocytes # 0.5 L Chloride 116 H BUN 21 H Glucose 108 H Calcium 7.3 L Magnesium AST 67 H Alkaline Phosphatase 20 L Creatine Kinase Total Protein 4.5 L Albumin 2.3 L Albumin/Globulin Ratio Procalcitonin 0.23 H Urine Protein 06/25/23 06/25/23 07:54 07:54 WBC RBC 2.87 L Hgb 9.0 L Hct 27.3 L MCHC Neutrophils # Lymphocytes # Chloride 115 H BUN 21 H Glucose 101 H Calcium 7.4 L Magnesium AST 68 H Alkaline Phosphatase 25 L Creatine Kinase Total Protein 4.7 L Albumin 2.3 L Albumin/Globulin Ratio Procalcitonin Urine Protein Assessment and Plan Assessment: * Delirium, likely due to acute pneumonia. Patient's mental functions otherwise have been stable for his age per patient's son's description. No definitive historical evidence of dementia. * Status post fall with left femoral neck fracture, status post hip arthroplasty * New onset atrial fibrillation * Probable aspiration pneumonia * Hypoxia * COPD * Tobacco use Plan: * Patient's son does not feel that patient has significant memory loss, except when he takes sleeping medication, that he gets confused the next day. Also if he does not sleep well overnight, then he can be forgetful the next day. At present patient is clearly delirious from acute pneumonia, hypoxemia and other medical conditions. Cannot evaluate for dementia while patient is acutely delirious. * Patient has pneumonia, currently on Zosyn. * Patient has new onset atrial fibrillation, currently on aspirin. Consider anticoagulation with Eliquis if no medical contraindications. We will defer to IM. * Recommend patient follow up with neurologist as outpatient, if patient continues to have memory loss despite resolution of acute medical conditions. * We will check B12, folate and TSH. * Recommend complete tobacco cessation. * Recommend follow-up with neurologist as an outpatient. Please reconsult neurology if any other concerns. * Discussed with patient's son in detail. Thank you for the consult. Time with Patient: Greater than 30
--- NOTE | 2023-06-26 11:40 | P.PN ---
Subjective Progress Note Date: 06/26/23 Principal diagnosis: Traumatic left femoral neck fracture post fall 83-year-old male patient with a history of dementia was brought into the emergency department after he was found outside and a small ditch. The patient was found approximately half a mile away from his residence. According to the family, the patient has dementia and episodes of confusion. usually, his sympt oms of confusion and dementia get worse at nighttime. He was found in a ditch around 4 AM this morning. Prior to that, he was in his house. Upon arrival to the emergency department, the patient was having hip pain and he was unable to answer questions appropriately. He was given Dilaudid and fentanyl in the emergency department. At the time of my evaluation, the patient was quite somnolent and sleepy. He was unable to answer any questions. A chest x-ray was done and the patient was found to have chronic scarring and a lung apices bilaterally. There is no evidence of any pneumonia. The patient is known to have COPD and the patient was initially placed on 4 L of oxygen nasal cannula a nd he was brought up to 10 L as the patient was found to be hypoxic. No significant tachypnea. Hemodynamically stable. CAT scan of the brain was done and the patient was found to have no acute process. There was some chronic lung specific white matter changes along with chronic small vessel ischemic changes. No evidence of any cervical spine fracture. Multiple or multilevel degenerative changes involving the cervical spine.X-ray of the lumbosacral spine showed no evidence of any fracture. There was moderate multilevel degenerative disc changes and facet arthropathy of the lumbar spine along with levoscoliosis of the lumbar spine. X-ray of the hip showed a left proximal femoral neck f racture. Computed tomography scan of the head was also done and the patient was found to have a fracture of the left femoral neck and fracture line extending from the subcu region of the superior femoral Neck junction and there was underlying osteopenia. The patient has a WBC count 12.1. Hemoglobin is at 13. Normal cognition profile. Normal electrolytes. Normal troponins. CPK was 244. Alcohol level was negative. On today's evaluation, the patient remains somnolent, lethargic, still unable to communicate. The patient has underlying dementia. The patient is currently down to 4 L of oxygen by nasal cannula. The patient was supposed to undergo surgery today. This was postponed to tomorrow. He is going to undergo a left hip ORIF. He did have an episode of atrial tachycardia for which he was given beta blockers. As mentioned earlier, he has significant cognitive impairments. Is related to his underlying dementia. The white cell count is at 12.5 with a hemoglobin 11.9 and a platelet count of 174. BUN is 19 with a creatinine 1.2 and his sodium levels is 144. UA is negative. Alcohol level is negative. LFTs are normal. CPKs 244. Chest x-ray shows COPD and is also limited bibasilar pulmonary infiltrates and the patient is currently on accommodation of Rocephin and Zithromax. He is also on DuoNeb nebulized treatments [id number]. IV fluids are running at a rate of 100 mL an hour. The patient is running a low- grade fever.The patient was also seen by cardiology. The patient was started on the Toprol 25 mg twice a day. The patient is sinus mechanism with atrial tachycardia and he was given IV Lopressor. On 06/21/2023, condition is essentially unchanged and the patient is on 4 L of oxygen by nasal cannula. The patient will be taken for surgery and left hip arthroplasty today. The patient's will have his surgery on the local anesthesia. The patient was placed on DVT prophylaxis with aspirin 82 mg by mouth twice a day. Orthopedic recommendation. He remains on IV fluids normal saline at the rate of 100 mL an hour. Dilaudid for pain control. IV cefazolin for surgical prophylaxis. White cycles of 12.5 with a hemoglobin 11.9. Patient was reevaluated today on 06/22/2023, seems to be doing well, he underwent uneventful surgery for his left hip fracture, patient is now postoperative day #1, he is confused, patient does have underlying dementia, does not seem in any distress. Patient actually had direct anterior left hip hemiarthroplasty, and the course has been relatively uneventful so far. Labs today were reviewed relatively normal CBC except for hemoglobin of 10.6 electrolytes are normal renal profile showed a BUN of 33 creatinine 1.24. Chest x-ray on admission showed small right-sided pleural effusion, and left base as well as right basilar atelectasis. 3 today on 06/23/2023, patient is status post direct anterior left hip hem iarthroplasty on 06/21/2023, he is now postoperative day #2. Patient is relatively asymptomatic, he is confused, and this is his baseline. Does not seem to be in any distress, nonetheless the patient is on 4 L nasal cannula with O2 saturation of 92% chest x-ray on admission showed small right-sided pleural effusion and a linear opacity at the right lung base consistent with atelectasis. Labs today showed evidence Of 7.9 hemoglobin is 10 Abnormal renal profile is normal bicarb is 24. Chest x-ray this morning is pending would like to have a follow-up on his chest x-ray from 06/20 as the patient seems to be on 4 L nasal cannula and O2 sats is marginal. Patient is not in any distress Evaluated today on 06/24/2023, patient is now postoperative day #3. Patient is confused but denies any shortness of breath denies any chest pain and denies any cough or wheezing denies any nausea vomiting or abdominal pain. A sitter is at bedside, patient refuses to eat his breakfast today. His chest x-ray is showing worsening atelectasis and possibly small bilateral pleural effusions clinically the patient is dry and dehydrated, he does have extremely dry mucous membranes hence I would hold on giving him any Lasix. Remains on 4 L nasal cannula with marginal oxygen saturations. CBC today is relatively unremarkable except for hemoglobin of 8.3 WBC count is normal,renal profile is normal. All his meds were reviewed. Reevaluated today on 06/25/2023, he is now postoperative day #4. Remains confuse d, but does not seem to be in distress, on 2 L nasal cannula with O2 saturation 93%, patient has some difficulty clearing his secretions, when asked to cough, the patient will cough but unable to clear any secretions and he seems to be significantly congested. His pro-calcitonin level came back elevated and considering his clinical findings, considering his chest x-ray findings, I am recommending that the patient goes now on Zosyn for presumptive pneumonia involving the lower lobes. Patient also received diuretics for his elevated BNP level which is 10,900 yesterday Reevaluated today on 06/26/2023, patient is now postoperative day #5, remains confused, continues to have difficulty with clearing his secretions, he does cough but unable to clear his secretions on his own. Maintained on 4 L nasal cannula, O2 sats is 94%. Labs today showed WBC count of 8.9 hemoglobin 9.3 sodium is 146 BUN is 22 creatinine 1.06, pro-calcitonin 2 days ago was 0.23 and he also had elevated BNP hence we recommended diuretics and recommended empiric antibioticsZosyn Objective - Vital Signs Vital signs: Vital Signs Temp 98.7 F 06/25/23 20:00 Pulse 88 06/26/23 09:33 Resp 16 06/26/23 08:00 BP 133/57 06/26/23 08:00 Pulse Ox 94 L 06/26/23 09:23 FiO2 Intake & Output 06/25/23 06/26/23 06/26/23 18:59 06:59 18:59 Intake Total 400 Output Total 1550 525 Balance -1150 -525 Weight 58.967 kg Intake: Intake, IV Titration 160 Amount Piperacillin-Tazobactam 3 100 .375 gm In Sodium Chloride 0.9% 100 ml @ 25 mls/hr IVPB Q8HR [facility] Rx# :[id number] Sodium Chloride 0.9% 1, 60 000 ml @ 0 mls/hr IV .[facility] Rx#:[id number] Oral 240 Output: Urine 1550 525 Uretheral (Haley) 1050 Other: Voiding Method Indwelling Catheter Indwelling Catheter Indwelling Catheter - Exam Physical Exam: Revealed an 83-year-old white male in no distress, remains confus ed on 2 L nasal cannula HEENT:[Neck is supple.] [No neck masses.] [No thyromegaly.] [No JVD.] Dry m ucous membranes noted. Chest: [Crackles at the bases, patient is noted to have difficulty clearing s ecretions Cardiac Exam: [Normal S1 and S2, no S3 gallop, no murmur.] Abdomen: [Soft, nontender, no megaly, no rebound, no guarding, normal bowel sounds.] Extremities: [the left hip, there is a clean, dry, intact surgical dressing in place Neurological Exam: , otherwise unremarkable, and no gross focal neurologic deficit Psychiatric: Flat affect, patient is confused - Labs CBC & Chem 7: 06/26/23 05:52 06/26/23 05:52 Labs: Abnormal Lab Results - Last 24 Hours (Table) 06/26/23 06/26/23 Range/Units 05:52 05:52 RBC 3.03 L (4.30-5.90) m/uL Hgb 9.3 L (13.0-17.5) gm/dL Hct 28.3 L (39.0-53.0) % Lymphocytes # 0.9 L (1.0-4.8) k/uL Sodium 146 H (137-145) mmol/L Chloride 113 H (98-107) mmol/L Carbon Dioxide 32 H (22-30) mmol/L BUN 22 H (9-20) mg/dL Glucose 103 H (74-99) mg/dL Calcium 7.9 L (8.4-10.2) mg/dL Alkaline Phosphatase 28 L (38-126) U/L Total Protein 4.9 L (6.3-8.2) g/dL Albumin 2.4 L (3.5-5.0) g/dL Assessment and Plan Assessment: Impression: Status post direct anterior left hip hemiarthroplasty, postoperative day #5 Acute hypoxic respiratory failure with abnormal chest x-ray showing COPD and biapical scarring, suspect pneumonia considering his pro-calcitonin level is elevated, likely aspiration pneumonia Underlying COPD Underlying dementia Benign essential hypertension Dyslipidemia Chronic degenerative joint disease Recommendation: Discussed his condition at bedside with his son Continue Zosyn Continue oxygen and titrate accordingly Incentive spirometry Continue DVT prophylaxis Continue updrafts Intermittent gentle diuresis Follow-up chest x-ray GI prophylaxis We'll continue to follow Time with Patient: Less than 30
--- NOTE | 2023-06-26 12:47 | P.PN ---
Subjective HISTORY OF PRESENT ILLNESS: 06/20/2023 This is a 83-year-old male with a past medical history significant for hypertension, hyperlipidemia, and dementia. Patient does not follow with a shorts sifter. We have been asked to see the patient in consultation for cardiac clearance. Patient examined at the bedside. Patient is obtunded and unable to provide any history. Patient's son is at the bedside and providing the majority of the HPI. He states that the patient has advanced dementia. He lives with one of his other sons and got out of the house in the middle of the night and walked over to the neighbor's house. He apparently fell and landed on the concrete. The patient was found to have a left hip fracture and is pending orthopedic surgical intervention. The patient's son denies any history of coronary artery disease, congestive heart failure, or arrhythmia such as atrial fibrillation. EKG reveals sinus mechanism. On telemetry, patient is in sinus rhythm with runs of atrial tachycardia with heart rates going into the [id number]. The patient is currently unable to take oral medications. * Chest xray suggestive of small right pleural effusion. Some linear opacity at the right base can be some developing atelectasis. There is increased infiltrate at the left base. Correlate for pneumonia and aspiration pneumonia. * Laboratory data: WBC 12.5. Hemoglobin 11.9. Platelet count 174. Sodium 144. Potassium 4.9. BUN 19. Creatinine 1.2. Troponin negative 3. ProBNP 382. * Current home cardiac medications include simvastatin 10 mg at night, and Candesartan 16mg at HS 06/26/2023 Cardiology was reconsulted to evaluate patient for A. fib. Patient is status post hip surgery. Patient is confused at baseline. His family is present at the bedside. They report patient has been agitated. Telemetry reviewed revealing episodes of atrial fibrillation intermittently. The patient does not have a history of atrial fibrillation. PHYSICAL EXAM: VITAL SIGNS: Reviewed. GENERAL: Well-developed in no acute distress. HEENT: Head is normocephalic. Pupils are equal, round. Sclerae anicteric. Mucous membranes of the mouth are moist. Neck supple. No JVD or thyromegaly LUNGS: Respirations even and unlabored. Lungs essentially clear to auscultation bilaterally. HEART: Regular rate and rhythm. S1 and S2 heard. EXTREMITIES: Normal range of motion. No clubbing or cyanosis. Peripheral pulses intact. No lower extremity edema ASSESSMENT: Left femoral neck fracture, status post fall Acute hypoxic respiratory failure Possible pneumonia Sinus mechanism with runs of atrial tachycardia with heart rates [id number] New-onset paroxysmal atrial fibrillation Hypertension Hyperlipidemia Advanced dementia COPD PLAN: Continue current cardiac medications Increase metoprolol to 50 mg twice a day Continue telemetry monitoring Patient is not a candidate for long-term anticoagulation secondary to advanced dementia and recent fall with hip fracture Further recommendations pending patient course Nurse practitioner note has been reviewed by physician. Signing provider agrees with the documented findings, assessment, and plan of care. Objective - Vital Signs Vital signs: Vital Signs Temp 98.7 F 06/25/23 20:00 Pulse 72 06/26/23 12:38 Resp 16 06/26/23 08:00 BP 133/57 06/26/23 08:00 Pulse Ox 94 L 06/26/23 09:23 FiO2 Intake & Output 06/25/23 06/26/23 06/26/23 18:59 06:59 18:59 Intake Total 400 Output Total 1550 525 700 Balance -1150 -525 -700 Weight 58.967 kg Intake: Intake, IV Titration 160 Amount Piperacillin-Tazobactam 3 100 .375 gm In Sodium Chloride 0.9% 100 ml @ 25 mls/hr IVPB Q8HR [facility] Rx# :[id number] Sodium Chloride 0.9% 1, 60 000 ml @ 0 mls/hr IV .[facility] Rx#:[id number] Oral 240 Output: Urine 1550 525 700 Uretheral (Haley) 1050 Other: Voiding Method Indwelling Catheter Indwelling Catheter Indwelling Catheter - Labs CBC & Chem 7: 06/26/23 05:52 06/26/23 05:52 Labs: Abnormal Lab Results - Last 24 Hours (Table) 06/26/23 06/26/23 Range/Units 05:52 05:52 RBC 3.03 L (4.30-5.90) m/uL Hgb 9.3 L (13.0-17.5) gm/dL Hct 28.3 L (39.0-53.0) % Lymphocytes # 0.9 L (1.0-4.8) k/uL Sodium 146 H (137-145) mmol/L Chloride 113 H (98-107) mmol/L Carbon Dioxide 32 H (22-30) mmol/L BUN 22 H (9-20) mg/dL Glucose 103 H (74-99) mg/dL Calcium 7.9 L (8.4-10.2) mg/dL Alkaline Phosphatase 28 L (38-126) U/L Total Protein 4.9 L (6.3-8.2) g/dL Albumin 2.4 L (3.5-5.0) g/dL
--- NOTE | 2023-06-26 16:38 | CDI ---
Documentation Clarification Form Date: 06/26/2023 04:08:06 PM From: Lindsay Campos RN CCDS Phone: [phone] Admit Date: 06/19/2023 07:45:00 AM Patient Name: Zaire Davis Visit Number: [id number] Discharge Date: ATTENTION: The Clinical Documentation Specialists (CDI) and [facility] Coding Staff appreciate your assistance in clarifying documentation. Please respond to the clarification below the line at the bottom and electronically sign. The CDI & [facility] Coding staff will review the response and follow-up if needed. Please note: Queries are made part of the Legal Health Record. If you have any questions, please contact the author of this message via ITS. Dr. Jasen Shelton Encephalopathy is documented 06/21, Pulmonary note. Additional clarification regarding the type of encephalopathy is requested. History/Risk Factors:83-year-old male presents to the ED after a fall I a ditch with left hip pain. Admitted with Pneumonia, Acute Hypoxic Respiratory Failure and Left femur fracture. Medical History: Smoker of about 50 pack year, HLD, HTN, Memory impairment. Clinical Indicators: 06/19, ED note: Encephalopathy, Acute. Son does present to the emergency department and states that his dad does have some confusion at baseline however the confusion gets significantly worse in the evening after he takes a sleeping medication. Patient had awoke around 1:30 AM and was restless. 06/19, H&P: He been having altered mental status at home with elements of dementia/delirium. 06/25, Neurology consult: At present patient is clearly delirious from acute pneumonia, hypoxemia and other medical conditions. VSS, 06/19: B/P 129/69, HR 113, Temp 97.2 F Oral; RR 22; SpO2 5L nasal cannula CXR, 06/19: Patchy bilateral upper lung reticular opacities Labs, 06/19: Wbc 12.[address] Brain 06/19: nonspecific white matter changes, likely secondary to chronic small vessel ischemic disease. Treatment: 06/19: Azithromycin ivpb x 1; Ceftriaxone ivpb x 1; 06/20 Azithromycin po daily x 2 doses; 06/20 Ceftriaxone ivpb q24hr x 4 bags; 06/21 Cefazolin ivpb q8hr x 2 bags; 06/25 Zosyn ivpb q8hr Consults: Please clarify the type of encephalopathy, if known: [ ] Metabolic Encephalopathy [x ] Metabolic Encephalopathy superimposed on dementia [ ] Other, please specify [ ] Unable to determine (Template Last Revised: January 2021) MTDD
[2023-06-26] MEDS: NICOTINE 14MG/24HR PATCH TRANSDERM SCH (16:43)
--- NOTE | 2023-06-26 16:59 | P.PN ---
Subjective Progress Note Date: 06/26/23 Patient was seen for a follow-up. Patient is laying comfortably in the bed. He is more comfortable. Less in respiratory distress. He offers no complaints. Objective - Vital Signs Vital signs: Vital Signs Temp 98.7 F 06/25/23 20:00 Pulse 79 06/26/23 16:20 Resp 16 06/26/23 08:00 BP 133/57 06/26/23 08:00 Pulse Ox 94 L 06/26/23 09:23 FiO2 Intake & Output 06/25/23 06/26/23 06/26/23 18:59 06:59 18:59 Intake Total 400 Output Total 1550 525 700 Balance -1150 -525 -700 Weight 58.967 kg Intake: Intake, IV Titration 160 Amount Piperacillin-Tazobactam 3 100 .375 gm In Sodium Chloride 0.9% 100 ml @ 25 mls/hr IVPB Q8HR [facility] Rx# :[id number] Sodium Chloride 0.9% 1, 60 000 ml @ 0 mls/hr IV .[facility] Rx#:[id number] Oral 240 Output: Urine 1550 525 700 Uretheral (Haley) 1050 Other: Voiding Method Indwelling Catheter Indwelling Catheter Indwelling Catheter - Exam Patient is much more alert and awake. His mentation is normal, processing time has improved. Patient knows that he is in medical building in [facility]. He states it is the month of March, when I said it was not March, patient said it was June. In the year is 1938. Speech and language functions are normal. Rest of the examination is unchanged. - Labs CBC & Chem 7: 06/26/23 05:52 06/26/23 05:52 Labs: Abnormal Lab Results - Last 24 Hours (Table) 06/26/23 06/26/23 Range/Units 05:52 05:52 RBC 3.03 L (4.30-5.90) m/uL Hgb 9.3 L (13.0-17.5) gm/dL Hct 28.3 L (39.0-53.0) % Lymphocytes # 0.9 L (1.0-4.8) k/uL Sodium 146 H (137-145) mmol/L Chloride 113 H (98-107) mmol/L Carbon Dioxide 32 H (22-30) mmol/L BUN 22 H (9-20) mg/dL Glucose 103 H (74-99) mg/dL Calcium 7.9 L (8.4-10.2) mg/dL Alkaline Phosphatase 28 L (38-126) U/L Total Protein 4.9 L (6.3-8.2) g/dL Albumin 2.4 L (3.5-5.0) g/dL Assessment and Plan Assessment: * Delirium, likely due to acute pneumonia. Patient's mental functions otherwise have been stable for his age per patient's son's description. No definitive historical evidence of dementia. * Status post fall with left femoral neck fracture, status post hip arthroplasty * New onset atrial fibrillation * Probable aspiration pneumonia * Hypoxia * COPD * Tobacco use Plan: * Patient's son does not feel that patient has significant memory loss, except when he takes sleeping medication, that he gets confused the next day. Also if he does not sleep well overnight, then he can be forgetful the next day. At present patient is clearly delirious from acute pneumonia, hypoxemia and other medical conditions. Cannot evaluate for dementia while patient is acutely delirious. * Patient has pneumonia, currently on Zosyn. * Patient has new onset atrial fibrillation, currently on aspirin. Consider anticoagulation with Eliquis if no medical contraindications. We will defer to IM. * Recommend patient follow up with neurologist as outpatient, if patient continues to have memory loss despite resolution of acute medical conditions. * B12 444, folate 16.90 and TSH 2.41, all normal. * Recommend complete tobacco cessation. * Recommend follow-up with neurologist as an outpatient. Dr. Britt will be available for neurology service over the weekend for any concerns. Dr. Plaza starting neurology service on Thursday.
[2023-06-26] MEDS: QUEtiapine 50 MG TAB PO SCH (20:04)
[2023-06-26] MEDS: DOXAZOSIN 4 MG TAB PO SCH (20:04)
[2023-06-26] MEDS: ATORVASTATIN 10 MG TAB PO SCH (20:08)
[2023-06-26] MEDS: SENNOSIDES-DOCUSATE SODIUM 1 EACH TAB PO SCH (20:08)
[2023-06-26] MEDS: LOSARTAN 50 MG TAB PO SCH (20:08)
[2023-06-27] MEDS: PIPERACILLIN-TAZOBACTAM 3.375 GM in SODIUM CHLORIDE 0.9% 100 ML IVPB SCH ×3 (00:01→15:42)
[2023-06-27] MEDS: SODIUM CHLORIDE 0.9% 1,000 ML IV SCH (06:21)
--- NOTE | 2023-06-27 07:01 | XR ---
EXAMINATION TYPE: XR chest 1V portable DATE OF EXAM: 06/27/2023 HISTORY: Shortness of breath. COMPARISON: 06/23/2023 TECHNIQUE: Single view of the chest is submitted. FINDINGS: Demonstrated are scattered senescent parenchymal change. Perihilar and lower lobe mixed interstitial and alveolar infiltrates with small effusions. Overall st able appearance. The heart is stable. Hilar and mediastinal structures are within normal limits. Degenerative changes are seen of the dorsal spine. IMPRESSION: 1. Perihilar and lower lobe mixed interstitial and alveolar infiltrates with small effusions. Overal l stable appearance.
[2023-06-27] MEDS: IPRATROPIUM-ALBUTEROL 3 ML NEB INHALATION SCH ×4 (07:35→20:03)
[2023-06-27] MEDS ORDERED: FUROSEMIDE 10 MG/ML 2 ML VIAL IV ONE (08:00)
[2023-06-27] MEDS: HEPARIN SODIUM,PORCINE 5,000 UNIT/ML 1 ML VIAL SQ SCH ×2 (08:59→20:53)
[2023-06-27] MEDS: PANTOPRAZOLE 40 MG/10 ML VIAL IVP SCH (08:59)
[2023-06-27] MEDS: ASPIRIN 81 MG PO SCH ×2 (08:59→20:55)
[2023-06-27] MEDS: METOPROLOL TARTRATE 50 MG TAB PO SCH ×2 (08:59→20:55)
[2023-06-27] MEDS: NICOTINE 14MG/24HR PATCH TRANSDERM SCH (09:00)
[2023-06-27 10:00] LABS: Potassium 4.2 mmol/L (3.5-5.1)
[2023-06-27 10:01] LABS: ALT 38 U/L (4-49); AST 51 U/L (17-59); African American GFR (CKD) 81 (>60 ml/min/1.73 sqM); Albumin 2.6 g/dL (3.5-5.0); Alkaline Phosphatase 27 U/L (38-126); Anion Gap 2 mmol/L; Blood Urea Nitrogen 19 mg/dL (9-20); Calcium 8.3 mg/dL (8.4-10.2); Carbon Dioxide 33 mmol/L (22-30); Chloride 111 mmol/L (98-107); Glucose 105 mg/dL (74-99); Non-African American GFR(CKD) 70 (>60 ml/min/1.73 sqM); Sodium 146 mmol/L (137-145); Total Bilirubin 0.6 mg/dL (0.2-1.3); Total Protein 5.3 g/dL (6.3-8.2)
--- NOTE | 2023-06-27 10:04 | P.PN ---
Subjective Progress Note Date: 06/27/23 Principal diagnosis: Traumatic left femoral neck fracture post fall 83-year-old male patient with a history of dementia was brought into the emergency department after he was found outside and a small ditch. The patient was found approximately half a mile away from his residence. According to the family, the patient has dementia and episodes of confusion. usually, his sympt oms of confusion and dementia get worse at nighttime. He was found in a ditch around 4 AM this morning. Prior to that, he was in his house. Upon arrival to the emergency department, the patient was having hip pain and he was unable to answer questions appropriately. He was given Dilaudid and fentanyl in the emergency department. At the time of my evaluation, the patient was quite somnolent and sleepy. He was unable to answer any questions. A chest x-ray was done and the patient was found to have chronic scarring and a lung apices bilaterally. There is no evidence of any pneumonia. The patient is known to have COPD and the patient was initially placed on 4 L of oxygen nasal cannula a nd he was brought up to 10 L as the patient was found to be hypoxic. No significant tachypnea. Hemodynamically stable. CAT scan of the brain was done and the patient was found to have no acute process. There was some chronic lung specific white matter changes along with chronic small vessel ischemic changes. No evidence of any cervical spine fracture. Multiple or multilevel degenerative changes involving the cervical spine.X-ray of the lumbosacral spine showed no evidence of any fracture. There was moderate multilevel degenerative disc changes and facet arthropathy of the lumbar spine along with levoscoliosis of the lumbar spine. X-ray of the hip showed a left proximal femoral neck f racture. Computed tomography scan of the head was also done and the patient was found to have a fracture of the left femoral neck and fracture line extending from the subcu region of the superior femoral Neck junction and there was underlying osteopenia. The patient has a WBC count 12.1. Hemoglobin is at 13. Normal cognition profile. Normal electrolytes. Normal troponins. CPK was 244. Alcohol level was negative. On today's evaluation, the patient remains somnolent, lethargic, still unable to communicate. The patient has underlying dementia. The patient is currently down to 4 L of oxygen by nasal cannula. The patient was supposed to undergo surgery today. This was postponed to tomorrow. He is going to undergo a left hip ORIF. He did have an episode of atrial tachycardia for which he was given beta blockers. As mentioned earlier, he has significant cognitive impairments. Is related to his underlying dementia. The white cell count is at 12.5 with a hemoglobin 11.9 and a platelet count of 174. BUN is 19 with a creatinine 1.2 and his sodium levels is 144. UA is negative. Alcohol level is negative. LFTs are normal. CPKs 244. Chest x-ray shows COPD and is also limited bibasilar pulmonary infiltrates and the patient is currently on accommodation of Rocephin and Zithromax. He is also on DuoNeb nebulized treatments [id number]. IV fluids are running at a rate of 100 mL an hour. The patient is running a low- grade fever.The patient was also seen by cardiology. The patient was started on the Toprol 25 mg twice a day. The patient is sinus mechanism with atrial tachycardia and he was given IV Lopressor. On 06/21/2023, condition is essentially unchanged and the patient is on 4 L of oxygen by nasal cannula. The patient will be taken for surgery and left hip arthroplasty today. The patient's will have his surgery on the local anesthesia. The patient was placed on DVT prophylaxis with aspirin 82 mg by mouth twice a day. Orthopedic recommendation. He remains on IV fluids normal saline at the rate of 100 mL an hour. Dilaudid for pain control. IV cefazolin for surgical prophylaxis. White cycles of 12.5 with a hemoglobin 11.9. Patient was reevaluated today on 06/22/2023, seems to be doing well, he underwent uneventful surgery for his left hip fracture, patient is now postoperative day #1, he is confused, patient does have underlying dementia, does not seem in any distress. Patient actually had direct anterior left hip hemiarthroplasty, and the course has been relatively uneventful so far. Labs today were reviewed relatively normal CBC except for hemoglobin of 10.6 electrolytes are normal renal profile showed a BUN of 33 creatinine 1.24. Chest x-ray on admission showed small right-sided pleural effusion, and left base as well as right basilar atelectasis. 3 today on 06/23/2023, patient is status post direct anterior left hip hem iarthroplasty on 06/21/2023, he is now postoperative day #2. Patient is relatively asymptomatic, he is confused, and this is his baseline. Does not seem to be in any distress, nonetheless the patient is on 4 L nasal cannula with O2 saturation of 92% chest x-ray on admission showed small right-sided pleural effusion and a linear opacity at the right lung base consistent with atelectasis. Labs today showed evidence Of 7.9 hemoglobin is 10 Abnormal renal profile is normal bicarb is 24. Chest x-ray this morning is pending would like to have a follow-up on his chest x-ray from 06/20 as the patient seems to be on 4 L nasal cannula and O2 sats is marginal. Patient is not in any distress Evaluated today on 06/24/2023, patient is now postoperative day #3. Patient is confused but denies any shortness of breath denies any chest pain and denies any cough or wheezing denies any nausea vomiting or abdominal pain. A sitter is at bedside, patient refuses to eat his breakfast today. His chest x-ray is showing worsening atelectasis and possibly small bilateral pleural effusions clinically the patient is dry and dehydrated, he does have extremely dry mucous membranes hence I would hold on giving him any Lasix. Remains on 4 L nasal cannula with marginal oxygen saturations. CBC today is relatively unremarkable except for hemoglobin of 8.3 WBC count is normal,renal profile is normal. All his meds were reviewed. Reevaluated today on 06/25/2023, he is now postoperative day #4. Remains confuse d, but does not seem to be in distress, on 2 L nasal cannula with O2 saturation 93%, patient has some difficulty clearing his secretions, when asked to cough, the patient will cough but unable to clear any secretions and he seems to be significantly congested. His pro-calcitonin level came back elevated and considering his clinical findings, considering his chest x-ray findings, I am recommending that the patient goes now on Zosyn for presumptive pneumonia involving the lower lobes. Patient also received diuretics for his elevated BNP level which is 10,900 yesterday Reevaluated today on 06/26/2023, patient is now postoperative day #5, remains confused, continues to have difficulty with clearing his secretions, he does cough but unable to clear his secretions on his own. Maintained on 4 L nasal cannula, O2 sats is 94%. Labs today showed WBC count of 8.9 hemoglobin 9.3 sodium is 146 BUN is 22 creatinine 1.06, pro-calcitonin 2 days ago was 0.23 and he also had elevated BNP hence we recommended diuretics and recommended empiric antibioticsZosyn Reevaluated today on 06/27/2023, patient is now postoperative day #6 basically about the same, no change in mental status, no changes in difficulty clearing secretions, remains on 4 L nasal cannula, chest x-ray showed small bilateral pleural effusions and atelectasis, hence I recommended a dose of Lasix 20 mg IV push 1 today. Patient was seen by neurology for mental status change and delirium, and felt that the patient has metabolic encephalopathy. Objective - Vital Signs Vital signs: Vital Signs Temp 98.2 F 06/27/23 04:00 Pulse 88 06/27/23 07:49 Resp 18 06/27/23 04:00 BP 145/62 06/27/23 04:00 Pulse Ox 94 L 06/27/23 04:00 FiO2 Intake & Output 06/26/23 06/27/23 06/27/23 18:59 06:59 18:59 Intake Total 600 Output Total 700 625 Balance -700 -25 Intake: Intake, IV Titration 100 Amount Piperacillin-Tazobactam 3 100 .375 gm In Sodium Chloride 0.9% 100 ml @ 25 mls/hr IVPB Q8HR [facility] Rx# :[id number] Oral 500 Output: Urine 700 625 Other: Voiding Method Indwelling Catheter Indwelling Catheter # Bowel Movements 1 - Exam Physical Exam: Revealed an 83-year-old white male in no distress, remains co nfused on 4 L nasal cannula HEENT:[Neck is supple.] [No neck masses.] [No thyromegaly.] [No JVD.] Dry mucous membranes noted. Chest: [Crackles at the bases, patient is noted to have difficulty clearing secretions Cardiac Exam: [Normal S1 and S2, no S3 gallop, no murmur.] Abdomen: [Soft, nontender, no megaly, no rebound, no guarding, normal bowel sounds.] Extremities: [the left hip, there is a clean, dry, intact surgical dressing in place Neurological Exam: , otherwise unremarkable, and no gross focal neurologic deficit Psychiatric: Flat affect, patient is confused - Labs CBC & Chem 7: 06/26/23 05:52 06/27/23 09:11 Assessment and Plan Assessment: Impression: Status post direct anterior left hip hemiarthroplasty, postoperative day #6 Acute hypoxic respiratory failure with abnormal chest x-ray showing COPD and biapical scarring, suspect pneumonia, with elevated pro calcitonin level Underlying COPD Underlying dementia Benign essential hypertension Dyslipidemia Chronic degenerative joint disease Recommendation: Gentle diuresis, Lasix 20 mg IV push was given for his bilateral pleural effusions Continue Zosyn Continue oxygen and titrate accordingly Incentive spirometry Continue DVT prophylaxis Continue updrafts GI prophylaxis We'll continue to follow Time with Patient: Less than 30
[2023-06-27 10:09] LABS: HCT 30.9 % (39.0-53.0); HGB 9.8 gm/dL (13.0-17.5); MCHC 31.9 g/dL (31.0-37.0); MCV 94.2 fL (80.0-100.0); Mean Platelet Volume 8.5; Platelet Count 362 k/uL (150-450); RBC 3.28 m/uL (4.30-5.90); RDW 13.7 % (11.5-15.5); WBC 7.7 k/uL (3.8-10.6)
--- NOTE | 2023-06-27 11:23 | P.PN ---
Subjective Progress Note Date: 06/27/23 This is Christopher Sánchez NP, I'm dictating on behalf of Dr. Webster's H&P and A&P. Patient was interviewed and examined. Patient is a pleasantly confused 83-year-old male who presented to the hospital with a fall with a left hip fracture. Patient is able to answer questions appropriately. He is denying chest pain, shortness of breath, heart palpitations. Patient has had not demonstrated any atrial fibrillation since yesterday afternoon. Patient does appreciate a mild cough which is possibly secondary to pneumonia. Patient has no other complaints at this time. GENERAL: Well-appearing, well-nourished and in no acute distress. NECK: Supple without JVD or thyromegaly. LUNGS: Mild crackles noted in the bilateral posterior lung zelaya to auscultation. Respiration equal and unlabored. No wheezes, rales or rhonchi. HEART: Regular rate and rhythm without murmurs, rubs or gallops. S1 and S2 hear d. EXTREMITIES: Normal range of motion, no edema. No clubbing or cyanosis. Peripheral pulses intact and strong. VITALS: Temp 97.7, pulse 84, respirations 18, blood pressure 141/65, O2 saturation 94% on 4 L TELEMETRY: Normal sinus rhythm LABS: White count 7.7, hemoglobin 9.8, platelets 362, sodium 146, potassium 4.2, B1 19, creatinine 0.99, calcium 8.3, TSH 2.41 IMPRESSION: 1. Left femoral neck fracture, status post fall 2. Acute hypoxic respiratory failure 3. Possible pneumonia 4. Normal sinus rhythm with runs of atrial tachycardia with heart rates in the 150s to 160s 5. New-onset paroxysmal atrial fibrillation 6. Hypertension 7. Hyperlipidemia 8. Advanced dementia 9. COPD PLAN: Patient has maintained normal sinus rhythm since yesterday. Continue metoprolol 50 mg twice a day as previously ordered. From a cardiology standpoint, we have no further recommendations at this time. Objective - Vital Signs Vital signs: Vital Signs Temp 97.7 F 06/27/23 08:00 Pulse 84 06/27/23 08:00 Resp 18 06/27/23 08:00 BP 141/65 06/27/23 08:00 Pulse Ox 94 L 06/27/23 08:00 FiO2 Intake & Output 06/26/23 06/27/2306/27/23 18:59 06:59 18:59 Intake Total 600 Output Total 700 625 850 Balance - Intake: Intake, IV Titration 100 Amount Piperacillin-Tazobactam 3 100 .375 gm In Sodium Chloride 0.9% 100 ml @ 25 mls/hr IVPB Q8HR [facility] Rx# :[id number] Oral 500 Output: Urine 700 625 850 Other: Voiding Method Indwelling Catheter Indwelling Catheter Indwelling Catheter # Bowel Movements 1 - Labs CBC & Chem 7: 06/27/23 09:11 06/27/23 09:11 Labs: Abnormal Lab Results - Last 24 Hours (Table) 06/27/23 06/27/23 Range/Units 09:11 09:11 RBC 3.28 L (4.30-5.90) m/uL Hgb 9.8 L (13.0-17.5) gm/dL Hct 30.9 L (39.0-53.0) % Sodium 146 H (137-145) mmol/L Chloride 111 H (98-107) mmol/L Carbon Dioxide 33 H (22-30) mmol/L Glucose 105 H (74-99) mg/dL Calcium 8.3 L (8.4-10.2) mg/dL Alkaline Phosphatase 27 L (38-126) U/L Total Protein 5.3 L (6.3-8.2) g/dL Albumin 2.6 L (3.5-5.0) g/dL
--- NOTE | 2023-06-27 12:53 | PN ---
PROGRESS NOTE DATE OF SERVICE: 06/27/2023 SUBJECTIVE: This 83-year-old gentleman admitted with femur fracture, had COPD acute exacerbation. The patient was closely monitored. No chest pain, no palpitations, no fever. OBJECTIVE: VITAL SIGNS: Pulse is 84, blood pressure 141 to 160, respirations 18. CHEST: Few scattered rhonchi. ABDOMEN: Soft. NERVOUS SYSTEM: No focal deficits. MOUTH: Oral candidiasis. LABORATORY DATA: Hemoglobin 9.8, sodium is 146. ASSESSMENT: 1. Status post left hip hemiarthroplasty. 2. Chronic obstructive pulmonary disease acute exacerbation with acute hypoxic respiratory failure. 3. Oral candidiasis. 4. Suspect pneumonia. 5. Dementia. 6. Benign prostatic hypertrophy. 7. Multiple medical issues. RECOMMENDATIONS: Recommended to continue current management, continue symptomatic treatment. Repeat labs, otherwise closely follow with Dr. Dias. Kalia. Prognosis guarded because of multiple complex medical issues. Further recommendations to follow. Will monitor sodium. MMODL / IJN: [id number] /
[2023-06-27] MEDS: NYSTATIN 100,000 UNIT/ML SUSP 500,000 UNIT/5 ML CUP PO SCH ×3 (15:42→20:53)
[2023-06-27] MEDS: SENNOSIDES-DOCUSATE SODIUM 1 EACH TAB PO SCH (20:54)
[2023-06-27] MEDS: ATORVASTATIN 10 MG TAB PO SCH (20:55)
[2023-06-27] MEDS: QUEtiapine 50 MG TAB PO SCH (20:55)
[2023-06-27] MEDS: LOSARTAN 50 MG TAB PO SCH (20:55)
[2023-06-27] MEDS: DOXAZOSIN 4 MG TAB PO SCH (20:55)
[2023-06-28] MEDS: SODIUM CHLORIDE 0.9% 1,000 ML IV SCH (03:33)
[2023-06-28 06:38] LABS: Basophils % (A) 1 %; Eosinophils # (A) 0.4 k/uL (0-0.7); Eosinophils % (A) 5 %; HCT 28.8 % (39.0-53.0); HGB 9.4 gm/dL (13.0-17.5); Lymphocytes % (A) 13 %; MCH 30.4 pg (25.0-35.0); MCHC 32.7 g/dL (31.0-37.0); MCV 93.2 fL (80.0-100.0); Mean Platelet Volume 7.6; Monocytes # (A) 0.5 k/uL (0-1.0); Monocytes % (A) 7 %; Neutrophils # (A) 5.8 k/uL (1.3-7.7); Neutrophils % (A) 74 %; Platelet Count 354 k/uL (150-450); RBC 3.09 m/uL (4.30-5.90); RDW 13.5 % (11.5-15.5); WBC 7.9 k/uL (3.8-10.6)
[2023-06-28 06:43] LABS: African American GFR (CKD) 81 (>60 ml/min/1.73 sqM); Anion Gap 2 mmol/L; Blood Urea Nitrogen 21 mg/dL (9-20); Carbon Dioxide 32 mmol/L (22-30); Chloride 108 mmol/L (98-107); Glucose 103 mg/dL (74-99); Non-African American GFR(CKD) 70 (>60 ml/min/1.73 sqM); Sodium 142 mmol/L (137-145)
[2023-06-28] MEDS: IPRATROPIUM-ALBUTEROL 3 ML NEB INHALATION SCH ×4 (07:39→21:05)
[2023-06-28] MEDS: PIPERACILLIN-TAZOBACTAM 3.375 GM in SODIUM CHLORIDE 0.9% 100 ML IVPB SCH ×5 (08:13→23:46)
[2023-06-28] MEDS: PANTOPRAZOLE 40 MG/10 ML VIAL IVP SCH (08:14)
[2023-06-28] MEDS: NYSTATIN 100,000 UNIT/ML SUSP 500,000 UNIT/5 ML CUP PO SCH ×4 (08:14→20:35)
[2023-06-28] MEDS: ASPIRIN 81 MG PO SCH ×2 (08:14→20:35)
[2023-06-28] MEDS: METOPROLOL TARTRATE 50 MG TAB PO SCH ×2 (08:14→20:35)
[2023-06-28] MEDS: HEPARIN SODIUM,PORCINE 5,000 UNIT/ML 1 ML VIAL SQ SCH ×2 (08:14→20:33)
[2023-06-28] MEDS: NICOTINE 14MG/24HR PATCH TRANSDERM SCH (08:14)
[2023-06-28] MEDS ORDERED: FUROSEMIDE 10 MG/ML 2 ML VIAL IV ONE (09:57)
--- NOTE | 2023-06-28 12:30 | P.PN ---
Subjective Progress Note Date: 06/28/23 Principal diagnosis: Traumatic left femoral neck fracture post fall 83-year-old male patient with a history of dementia was brought into the emergency department after he was found outside and a small ditch. The patient was found approximately half a mile away from his residence. According to the family, the patient has dementia and episodes of confusion. usually, his sympt oms of confusion and dementia get worse at nighttime. He was found in a ditch around 4 AM this morning. Prior to that, he was in his house. Upon arrival to the emergency department, the patient was having hip pain and he was unable to answer questions appropriately. He was given Dilaudid and fentanyl in the emergency department. At the time of my evaluation, the patient was quite somnolent and sleepy. He was unable to answer any questions. A chest x-ray was done and the patient was found to have chronic scarring and a lung apices bilaterally. There is no evidence of any pneumonia. The patient is known to have COPD and the patient was initially placed on 4 L of oxygen nasal cannula a nd he was brought up to 10 L as the patient was found to be hypoxic. No significant tachypnea. Hemodynamically stable. CAT scan of the brain was done and the patient was found to have no acute process. There was some chronic lung specific white matter changes along with chronic small vessel ischemic changes. No evidence of any cervical spine fracture. Multiple or multilevel degenerative changes involving the cervical spine.X-ray of the lumbosacral spine showed no evidence of any fracture. There was moderate multilevel degenerative disc changes and facet arthropathy of the lumbar spine along with levoscoliosis of the lumbar spine. X-ray of the hip showed a left proximal femoral neck f racture. Computed tomography scan of the head was also done and the patient was found to have a fracture of the left femoral neck and fracture line extending from the subcu region of the superior femoral Neck junction and there was underlying osteopenia. The patient has a WBC count 12.1. Hemoglobin is at 13. Normal cognition profile. Normal electrolytes. Normal troponins. CPK was 244. Alcohol level was negative. On today's evaluation, the patient remains somnolent, lethargic, still unable to communicate. The patient has underlying dementia. The patient is currently down to 4 L of oxygen by nasal cannula. The patient was supposed to undergo surgery today. This was postponed to tomorrow. He is going to undergo a left hip ORIF. He did have an episode of atrial tachycardia for which he was given beta blockers. As mentioned earlier, he has significant cognitive impairments. Is related to his underlying dementia. The white cell count is at 12.5 with a hemoglobin 11.9 and a platelet count of 174. BUN is 19 with a creatinine 1.2 and his sodium levels is 144. UA is negative. Alcohol level is negative. LFTs are normal. CPKs 244. Chest x-ray shows COPD and is also limited bibasilar pulmonary infiltrates and the patient is currently on accommodation of Rocephin and Zithromax. He is also on DuoNeb nebulized treatments [id number]. IV fluids are running at a rate of 100 mL an hour. The patient is running a low- grade fever.The patient was also seen by cardiology. The patient was started on the Toprol 25 mg twice a day. The patient is sinus mechanism with atrial tachycardia and he was given IV Lopressor. On 06/21/2023, condition is essentially unchanged and the patient is on 4 L of oxygen by nasal cannula. The patient will be taken for surgery and left hip arthroplasty today. The patient's will have his surgery on the local anesthesia. The patient was placed on DVT prophylaxis with aspirin 82 mg by mouth twice a day. Orthopedic recommendation. He remains on IV fluids normal saline at the rate of 100 mL an hour. Dilaudid for pain control. IV cefazolin for surgical prophylaxis. White cycles of 12.5 with a hemoglobin 11.9. Patient was reevaluated today on 06/22/2023, seems to be doing well, he underwent uneventful surgery for his left hip fracture, patient is now postoperative day #1, he is confused, patient does have underlying dementia, does not seem in any distress. Patient actually had direct anterior left hip hemiarthroplasty, and the course has been relatively uneventful so far. Labs today were reviewed relatively normal CBC except for hemoglobin of 10.6 electrolytes are normal renal profile showed a BUN of 33 creatinine 1.24. Chest x-ray on admission showed small right-sided pleural effusion, and left base as well as right basilar atelectasis. 3 today on 06/23/2023, patient is status post direct anterior left hip hem iarthroplasty on 06/21/2023, he is now postoperative day #2. Patient is relatively asymptomatic, he is confused, and this is his baseline. Does not seem to be in any distress, nonetheless the patient is on 4 L nasal cannula with O2 saturation of 92% chest x-ray on admission showed small right-sided pleural effusion and a linear opacity at the right lung base consistent with atelectasis. Labs today showed evidence Of 7.9 hemoglobin is 10 Abnormal renal profile is normal bicarb is 24. Chest x-ray this morning is pending would like to have a follow-up on his chest x-ray from 06/20 as the patient seems to be on 4 L nasal cannula and O2 sats is marginal. Patient is not in any distress Evaluated today on 06/24/2023, patient is now postoperative day #3. Patient is confused but denies any shortness of breath denies any chest pain and denies any cough or wheezing denies any nausea vomiting or abdominal pain. A sitter is at bedside, patient refuses to eat his breakfast today. His chest x-ray is showing worsening atelectasis and possibly small bilateral pleural effusions clinically the patient is dry and dehydrated, he does have extremely dry mucous membranes hence I would hold on giving him any Lasix. Remains on 4 L nasal cannula with marginal oxygen saturations. CBC today is relatively unremarkable except for hemoglobin of 8.3 WBC count is normal,renal profile is normal. All his meds were reviewed. Reevaluated today on 06/25/2023, he is now postoperative day #4. Remains confuse d, but does not seem to be in distress, on 2 L nasal cannula with O2 saturation 93%, patient has some difficulty clearing his secretions, when asked to cough, the patient will cough but unable to clear any secretions and he seems to be significantly congested. His pro-calcitonin level came back elevated and considering his clinical findings, considering his chest x-ray findings, I am recommending that the patient goes now on Zosyn for presumptive pneumonia involving the lower lobes. Patient also received diuretics for his elevated BNP level which is 10,900 yesterday Reevaluated today on 06/26/2023, patient is now postoperative day #5, remains confused, continues to have difficulty with clearing his secretions, he does cough but unable to clear his secretions on his own. Maintained on 4 L nasal cannula, O2 sats is 94%. Labs today showed WBC count of 8.9 hemoglobin 9.3 sodium is 146 BUN is 22 creatinine 1.06, pro-calcitonin 2 days ago was 0.23 and he also had elevated BNP hence we recommended diuretics and recommended empiric antibioticsZosyn Reevaluated today on 06/27/2023, patient is now postoperative day #6 basically about the same, no change in mental status, no changes in difficulty clearing secretions, remains on 4 L nasal cannula, chest x-ray showed small bilateral pleural effusions and atelectasis, hence I recommended a dose of Lasix 20 mg IV push 1 today. Patient was seen by neurology for mental status change and delirium, and felt that the patient has metabolic encephalopathy. Patient was reevaluated today on 06/28/2023, he is now postoperative day #7 basically again about the same, presently confused, not in distress, his FiO2 was titrated down to 3 L nasal cannula with O2 sats of 95% continues to receive diuretics and I believe the diuretics seem to be helping. We'll give her more Lasix today, and will have a follow-up chest x-ray in a.m. CBC is relatively normal basic metabolic profile is normal renal profile is normal Objective - Vital Signs Vital signs: Vital Signs Temp 97.9 F 06/28/23 08:00 Pulse 84 06/28/23 11:58 Resp 18 06/28/23 08:00 BP 135/76 06/28/23 08:00 Pulse Ox 95 06/28/23 08:00 FiO2 Intake & Output 06/27/23 06/28/23 06/28/23 18:59 06:59 18:59 Output Total 850 600 Balance -850 -600 Output: Urine 850 600 Other: Voiding Method Indwelling Catheter Indwelling Catheter Indwelling Catheter - Exam Physical Exam: Revealed an 83-year-old white male in no distress, remains confused on 3 L nasal cannula HEENT:[Neck is supple.] [No neck masses.] [No thyromegaly.] [No JVD.] Dry mucous membranes noted. Chest: [Crackles at the bases, patient is noted to have difficulty clearing secretions Cardiac Exam: [Normal S1 and S2, no S3 gallop, no murmur.] Abdomen: [Soft, nontender, no megaly, no rebound, no guarding, normal bowel sounds.] Extremities: [the left hip, there is a clean, dry, intact surgical dressing in place Neurological Exam: , otherwise unremarkable, and no gross focal neurologic deficit Psychiatric: Flat affect, patient is confused - Labs CBC & Chem 7: 06/28/23 06:21 06/28/23 06:21 Labs: Abnormal Lab Results - Last 24 Hours (Table) 06/28/23 06/28/23 Range/Units 06:21 06:21 RBC 3.09 L (4.30-5.90) m/uL Hgb 9.4 L (13.0-17.5) gm/dL Hct 28.8 L (39.0-53.0) % Chloride 108 H (98-107) mmol/L Carbon Dioxide 32 H (22-30) mmol/L BUN 21 H (9-20) mg/dL Glucose 103 H (74-99) mg/dL Calcium 8.0 L (8.4-10.2) mg/dL Assessment and Plan Assessment: Impression: Status post direct anterior left hip hemiarthroplasty, postoperative day #7 Acute hypoxic respiratory failure with abnormal chest x-ray showing COPD and biapical scarring, suspect pneumonia, with elevated pro calcitonin level Underlying COPD Underlying dementia Benign essential hypertension Dyslipidemia Chronic degenerative joint disease Suspect some component of acute diastolic congestive heart failure, improving with diuretics. Recommendation: Gentle diuresis, Lasix was given again today. Follow-up chest x-ray in a.m. Continue Zosyn Continue oxygen and titrate accordingly Incentive spirometry Continue DVT prophylaxis Continue updrafts GI prophylaxis Strongly recommend placement in rehab Time with Patient: Less than 30
[2023-06-28] MEDS ORDERED: SENNOSIDES-DOCUSATE SODIUM 1 EACH TAB PO PRN (15:11)
[2023-06-28] MEDS: DOXAZOSIN 4 MG TAB PO SCH (20:35)
[2023-06-28] MEDS: LOSARTAN 50 MG TAB PO SCH (20:36)
[2023-06-28] MEDS: ATORVASTATIN 10 MG TAB PO SCH (20:36)
[2023-06-28] MEDS: HYDROcodone/APAP 5-325MG 1 EACH TAB PO PRN (20:36)
[2023-06-28] MEDS: QUEtiapine 50 MG TAB PO SCH (20:36)
[2023-06-29] MEDS: HYDROcodone/APAP 5-325MG 1 EACH TAB PO PRN (02:18)
[2023-06-29] MEDS: SODIUM CHLORIDE 0.9% 1,000 ML IV SCH (02:20)
--- NOTE | 2023-06-29 02:41 | PN ---
PROGRESS NOTE DATE OF SERVICE: 06/28/2023 SUBJECTIVE: This 83-year-old gentleman admitted with a hip hemiarthroplasty, also COPD. No chest pain. No palpitation. Breathing is slightly better. PHYSICAL EXAMINATION: VITAL SIGNS: Pulse is 83, blood pressure 139/77, respirations 18. CHEST: Few scattered rhonchi. ABDOMEN: Soft. NERVOUS SYSTEM: Nonfocal. LABORATORY DATA: Reviewed. ASSESSMENT: 1. Status post left hip hemiarthroplasty. 2. Chronic obstructive pulmonary disease acute exacerbation with acute hypoxic respiratory failure. 3. Oral candidiasis. 4. Suspect pneumonia. 5. Dementia. 6. Benign prostatic hypertrophy. 7. Multiple medical issues. RECOMMENDATIONS: Recommended to continue current management, continue symptomatic treatment. Otherwise, at this time, I recommend intensive bronchodilator treatment. Closely follow up with Dr. Dias. IV antibiotics. Guarded prognosis. Further recommendations to follow. Dr. Shelton will follow tomorrow. MMODL / IJN: [id number] /
[2023-06-29] MEDS: IPRATROPIUM-ALBUTEROL 3 ML NEB INHALATION SCH ×4 (07:54→21:12)
--- NOTE | 2023-06-29 08:39 | P.PN ---
Subjective Progress Note Date: 06/29/23 Principal diagnosis: fall This is an 83-year-old male who was found in a ditch after a fall and emergency personnel found him. He was brought to the emergency room and found to have a left hip fracture. Patient has a history of COPD and is a chronic smoker. Workup in the emergency room also did show pneumonia. Yesterday patient underwent a left direct anterior hip hemiarthroplasty with Dr. Ceballos. He tolerated the procedure well. He is seen this morning sitting up in bed alert. He is able to follow commands, with only slight confusion noted. He denies any pain currently. 06/23/23 Patient is postop day 2 of left direct anterior hip hemiarthroplasty with Dr. Ceballos. He is seen sitting up in bed this morning. Continues to be somewhat alert and able to follow commands, with slight confusion noted. Plan is for placement for rehab at discharge. Patient still has Haley catheter, will discontinue that today and trial voiding on his own. Per patient he did not have any issues voiding prior to hospitalization. 06/25/2023 Patient seen laying in bed this morning with sitter at bedside. Patient is still confused. Nurse reports patient was very combative last night. Patient was straight cathed last night with an output of 700 mL. Case management has been working on finding placement for patient. Patient still remains on 4 L of oxygen. Lungs with more crackles today, but no lower extremity edema noted. Echo was completed on 06/20/23 and showed ejection fraction of 50-55%. 06/29/2023 Patient was seen and evaluated by neurology last week, recommending follow-up with neurology as an outpatient, they feel delirium was related to pneumonia. Patient is seen this morning resting in bed. He is alert to person, some mild confusion still. Patient's son at bedside this morning, states they would like to take patient home now instead of placement. Objective - Vital Signs Vital signs: Vital Signs Temp 97.8 F 06/29/23 02:00 Pulse 76 06/29/23 08:06 Resp 18 06/29/23 02:00 BP 112/66 06/29/23 02:00 Pulse Ox 96 06/29/23 07:55 FiO2 Intake & Output 06/28/23 06/29/23 06/29/23 18:59 06:59 18:59 Intake Total 600 Output Total 1300 Balance -1300 600 Intake: Intake, IV Titration 300 Amount Piperacillin-Tazobactam 3 100 .375 gm In Sodium Chloride 0.9% 100 ml @ 25 mls/hr IVPB Q8HR [facility] Rx# :[id number] Sodium Chloride 0.9% 1, 200 000 ml @ 20 mls/hr IV . Q24H GARY Rx#:[id number] Oral 300 Output: Urine 1300 Other: Voiding Method Indwelling Catheter Indwelling Catheter # Bowel Movements 1 - Constitutional General appearance: Present: cooperative, no acute distress - EENT Eyes: Present: PERRLA - Neck Neck: Present: normal ROM. Absent: lymphadenopathy, rigidity - Respiratory Respiratory: bilateral: wheezing - Cardiovascular Rhythm: regular Heart sounds: normal: S1, S2 - Gastrointestinal General gastrointestinal: Present: soft. Absent: tenderness - Musculoskeletal Musculoskeletal: Present: generalized weakness - Psychiatric Psychiatric Comment(s): alert to person - Labs CBC & Chem 7: 06/28/23 06:21 06/28/23 06:21 Assessment and Plan (1) Fall Current Visit: Yes Status: Acute Code(s): W19.XXXA - UNSPECIFIED FALL, INITIAL ENCOUNTER SNOMED Code(s): 1093694 (2) Fracture of femoral neck, left Current Visit: Yes Status: Acute Code(s): S72.002A - FRACTURE OF UNSP PART OF NECK OF LEFT FEMUR, INIT SNOMED Code(s): 3719217 (3) Hypoxia Current Visit: Yes Status: Acute Code(s): R09.02 - HYPOXEMIA SNOMED Code(s): 673096110 (4) Nicotine dependence Current Visit: Yes Status: Acute Code(s): F17.200 - NICOTINE DEPENDENCE, UNSPECIFIED, UNCOMPLICATED SNOMED Code(s): 03244929 (5) Pneumonia Current Visit: Yes Status: Acute Code(s): J18.9 - PNEUMONIA, UNSPECIFIED ORGANISM SNOMED Code(s): 629377870 (6) Confusion Current Visit: Yes Status: Acute Code(s): R41.0 - DISORIENTATION, UNSPECIFIED SNOMED Code(s): 206229717 Plan: Check CBC and CMP in the morning. Will discontinue IV Zosyn and switch to Augmentin. Family has decided they would like to take patient home, will work with care management today to get ready Anticipate discharge in the next 24-48 hours. Patient seen and evaluated by nurse practitioner, physician in agreement with plan
[2023-06-29] MEDS: METOPROLOL TARTRATE 50 MG TAB PO SCH ×2 (09:03→21:40)
[2023-06-29] MEDS: PANTOPRAZOLE 40 MG/10 ML VIAL IVP SCH (09:03)
[2023-06-29] MEDS: NYSTATIN 100,000 UNIT/ML SUSP 500,000 UNIT/5 ML CUP PO SCH ×5 (09:03→21:41)
[2023-06-29] MEDS: NICOTINE 14MG/24HR PATCH TRANSDERM SCH (09:03)
[2023-06-29] MEDS: HEPARIN SODIUM,PORCINE 5,000 UNIT/ML 1 ML VIAL SQ SCH ×2 (09:04→21:40)
[2023-06-29] MEDS: ASPIRIN 81 MG PO SCH ×2 (09:04→21:40)
--- NOTE | 2023-06-29 10:27 | XR ---
EXAMINATION TYPE: XR chest 1V portable DATE OF EXAM: 06/29/2023 COMPARISON: 06/27/2023 HISTORY: Shortness of breath TECHNIQUE: Single frontal view of the chest is obtained. FINDINGS: Bilateral consolidation small effusion with diffuse interstitial pattern. Heart size stabl e. Atherosclerotic change aorta. Underlying COPD and diffuse osteopenia with postsurgical change involving the cervical line. Hypertro phic changes in the remaining portion of the spine. IMPRESSION: Stable bilateral infiltrate pleural effusion superimposed on background COPD. Correlate for mild CHF.
[2023-06-29] MEDS: PIPERACILLIN-TAZOBACTAM 3.375 GM in SODIUM CHLORIDE 0.9% 100 ML IVPB SCH (11:07)
--- NOTE | 2023-06-29 11:17 | P.PN ---
Subjective Progress Note Date: 06/29/23 Principal diagnosis: Left hip fracture, aspiration. Evaluated today on 06/24/2023, patient is now postoperative day #3. Patient is confused but denies any shortness of breath denies any chest pain and denies any cough or wheezing denies any nausea vomiting or abdominal pain. A sitter is at bedside, patient refuses to eat his breakfast today. His chest x-ray is showing worsening atelectasis and possibly small bilateral pleural effusions clinically the patient is dry and dehydrated, he does have extremely dry mucous membranes hence I would hold on giving him any Lasix. Remains on 4 L nasal cannula with marginal oxygen saturations. CBC today is relatively unremarkable except for hemoglobin of 8.3 WBC count is normal,renal profile is normal. All his meds were reviewed. Reevaluated today on 06/25/2023, he is now postoperative day #4. Remains confused, but does not seem to be in distress, on 2 L nasal cannula with O2 saturation 93%, patient has some difficulty clearing his secretions, when asked to cough, the patient will cough but unable to clear any secretions and he seems to be significantly congested. His pro-calcitonin level came back elevated and considering his clinical findings, considering his chest x-ray findings, I am recommending that the patient goes now on Zosyn for presumptive pneumonia involving the lower lobes. Patient also received diuretics for his elevated BNP level which is 10,900 yesterday Reevaluated today on 06/26/2023, patient is now postoperative day #5, remains confused, continues to have difficulty with clearing his secretions, he does cough but unable to clear his secretions on his own. Maintained on 4 L nasal cannula, O2 sats is 94%. Labs today showed WBC count of 8.9 hemoglobin 9.3 sodium is 146 BUN is 22 creatinine 1.06, pro-calcitonin 2 days ago was 0.23 and he also had elevated BNP hence we recommended diuretics and recommended empiric antibioticsZosyn Reevaluated today on 06/27/2023, patient is now postoperative day #6 basically about the same, no change in mental status, no changes in difficulty clearing secretions, remains on 4 L nasal cannula, chest x-ray showed small bilateral pleural effusions and atelectasis, hence I recommended a dose of Lasix 20 mg IV push 1 today. Patient was seen by neurology for mental status change and delirium, and felt that the patient has metabolic encephalopathy. Patient was reevaluated today on 06/28/2023, he is now postoperative day #7 basically again about the same, presently confused, not in distress, his FiO2 was titrated down to 3 L nasal cannula with O2 sats of 95% continues to receive diuretics and I believe the diuretics seem to be helping. We'll give her more Lasix today, and will have a follow-up chest x-ray in a.m. CBC is relatively normal basic metabolic profile is normal renal profile is normal Progress note dated 06/29/2023. Postoperative day #8, status post repair of a left hip fracture. The patient's currently on 3 L of oxygen. The patient's getting saline at 20 mL an hour. The patient's pro-calcitonin level was 0.23. The patient remains on Augmentin. The patient was thought to have developed an aspiration pneumonia. No new labs today. Labs from June 28 have been reviewed. Blood cultures are currently negative. Chest x-ray is relatively stable is consistent with bilateral infiltrates, and small pleural effusions. Objective - Vital Signs Vital signs: Vital Signs Temp 97.3 F L 06/29/23 08:00 Pulse 76 06/29/23 08:06 Resp 18 06/29/23 08:00 BP 116/56 06/29/23 08:00 Pulse Ox 91 L 06/29/23 08:00 FiO2 Intake & Output 06/28/23 06/29/23 06/29/23 18:59 06:59 18:59 Intake Total 600 180 Output Total 1300 825 Balance -1300 600 -645 Weight 58.967 kg Intake: Intake, IV Titration 300 Amount Piperacillin-Tazobactam 3 100 .375 gm In Sodium Chloride 0.9% 100 ml @ 25 mls/hr IVPB Q8HR [facility] Rx# :[id number] Sodium Chloride 0.9% 1, 200 000 ml @ 20 mls/hr IV . Q24H [facility] Rx#:[id number] Oral 300 180 Output: Urine 1300 825 Other: Voiding Method Indwelling Catheter Indwelling Catheter # Bowel Movements 1 - Exam No acute distress, confused, currently on 3 L. HEENT examination is grossly unremarkable. Neck supple. Full range of motion. No adenopathy thyromegaly or neck vein distention. Cardiovascular examination reveals regular rhythm rate. S1-S2 normal. No S3 or S4. No discernible murmur noted. Heart sounds are distant. Heart rate 76 bpm. Lungs reveal scattered bilateral rhonchi, few scattered crackles. Breath sounds equal bilaterally. No wheezes. Saturations are in the mid 90s on 3 L. Abdomen is soft, with bowel sounds. No masses or tenderness. Extremities are intact. No cyanosis clubbing or edema. Skin is without rash or lesion. Neurologic examination is difficult to evaluate. The patient appears confused. - Labs CBC & Chem 7: 06/28/23 06:21 06/28/23 06:21 Assessment and Plan Assessment: S/P direct anterior left hip hemiarthroplasty, postop day #8. Acute hypoxemic respiratory failure, secondary to COPD/pneumonia. History of underlying COPD. History of dementia. Essential hypertension. Dyslipidemia. Chronic degenerative joint disease. Acute diastolic congestive heart failure. Plan: Plan dated 06/29/2023. The patient is being evaluated for possible placement at a local correction. Additional recommendations and suggestions are forthcoming. The patient remains on Augmentin, and had his last pro-calcitonin level measured at 0.23. The patient remains on 3 L of oxygen, and saline at 20 mL an hour. Labs, x-rays, and medications are all reviewed. Prognosis is certainly guarded. Family member in the patient's room, at the patient's bedside. Time with Patient: Less than 30
[2023-06-29] MEDS: AMOXIC-POT CLAV 500-125 MG 1 EACH TAB PO SCH ×2 (12:14→21:40)
[2023-06-29] MEDS: LOSARTAN 50 MG TAB PO SCH (21:39)
[2023-06-29] MEDS: DOXAZOSIN 4 MG TAB PO SCH (21:40)
[2023-06-29] MEDS: QUEtiapine 50 MG TAB PO SCH (21:40)
[2023-06-29] MEDS: ATORVASTATIN 10 MG TAB PO SCH (21:40)
[2023-06-30] MEDS: SODIUM CHLORIDE 0.9% 1,000 ML IV SCH (05:06)
[2023-06-30 06:58] LABS: HCT 26.7 % (39.0-53.0); HGB 8.6 gm/dL (13.0-17.5); Hypochromasia Slight; MCH 30.2 pg (25.0-35.0); MCHC 32.3 g/dL (31.0-37.0); MCV 93.5 fL (80.0-100.0); Mean Platelet Volume 7.5; Platelet Count 389 k/uL (150-450); RBC 2.85 m/uL (4.30-5.90); RDW 13.4 % (11.5-15.5); WBC 9.7 k/uL (3.8-10.6)
[2023-06-30 07:24] LABS: ALT 36 U/L (4-49); AST 41 U/L (17-59); African American GFR (CKD) 75 (>60 ml/min/1.73 sqM); Albumin 2.3 g/dL (3.5-5.0); Alkaline Phosphatase 25 U/L (38-126); Anion Gap 2 mmol/L; Blood Urea Nitrogen 20 mg/dL (9-20); Calcium 7.9 mg/dL (8.4-10.2); Carbon Dioxide 31 mmol/L (22-30); Chloride 105 mmol/L (98-107); Glucose 94 mg/dL (74-99); Non-African American GFR(CKD) 65 (>60 ml/min/1.73 sqM); Potassium 4.2 mmol/L (3.5-5.1); Sodium 138 mmol/L (137-145); Total Bilirubin 0.5 mg/dL (0.2-1.3); Total Protein 4.6 g/dL (6.3-8.2)
--- NOTE | 2023-06-30 08:49 | P.DS ---
Providers Date of admission: 06/19/23 07:45 Attending physician: Jasen Shelton Consults: 06/19/23 07:45 Consult Physician Routine Consulting Provider: Erum Milan Consult Reason/Comments: Hypoxic respiratory failure, CAP Do you want consulting provider notified?: Yes 06/19/23 07:46 Consult Physician Routine Consulting Provider: Jamal Ceballos Consult Reason/Comments: Left femoral neck fracture Do you want consulting provider notified?: Already Contacted 06/19/23 19:05 Consult Physician Urgent Consulting Provider: Brandt Alfaro Consult Reason/Comments: pre-op clearance Do you want consulting provider notified?: Yes 06/25/23 08:15 Consult Physician Routine Consulting Provider: Razia Delgado Consult Reason/Comments: confusion/dementia? Do you want consulting provider notified?: Yes 06/26/23 08:03 Consult Physician Urgent Consulting Provider: Anthony Webster Consult Reason/Comments: A-Fib Do you want consulting provider notified?: Already Contacted Primary care physician: Jasen Shelton - Discharge Diagnosis(es) (1) Fall Current Visit: Yes Status: Acute (2) Fracture of femoral neck, left Current Visit: Yes Status: Acute (3) Hypoxia Current Visit: Yes Status: Acute (4) Nicotine dependence Current Visit: Yes Status: Acute (5) Pneumonia Current Visit: Yes Status: Acute (6) Confusion Current Visit: Yes Status: Acute Hospital Course: This is an 83-year-old male who originally presented to the emergency room after being found in a ditch after a fall at home. On admission patient was found to have a left hip fracture and pneumonia. Patient did undergo a left direct anterior hip hemiarthroplasty with Dr. Ceballos during this admission. He tolerated the procedure well and continues to improve. Also during admission patient had ongoing confusion and was evaluated by neurology. Seroquel was started for nighttime agitation. Confusion is somewhat improved, and family has decided they would like to take patient home, instead of placement. Patient will be discharged with Haley catheter in place, we will reevaluate need for catheter at follow-up appointment next week. Patient will also need home oxygen and a nebulizer. He'll be discharged with home care ordered. Patient to continue Augmentin for 5 more days. Patient seen and evaluated by nurse practitioner, physician in agreement with plan Patient Condition at Discharge: Serious Plan - Discharge Summary Discharge Rx Participant: Yes New Discharge Prescriptions: New Ipratropium-Albuterol Nebulize [Duoneb 0.5 mg-3 mg/3 ml Soln] 3 ml INHALATION RT-QID #100 each HYDROcodone/APAP 5-325MG [Katy 5-325] 1 each PO Q6HR PRN #60 tab PRN Reason: Pain QUEtiapine [SEROquel] 50 mg PO HS #30 tab Aspirin 81 mg PO BID 30 Days #60 tab Amoxic-Pot Clav 500-125 mg [Augmentin 500-125 mg] 1 each PO BID #10 tab Metoprolol Tartrate [Lopressor] 50 mg PO BID #60 tab Continue Candesartan [Atacand] 16 mg PO HS Simvastatin [Zocor] 10 mg PO HS Eszopiclone 3 mg PO HS Doxazosin [Cardura] 4 mg PO HS Discharge Medication List Candesartan [Atacand] 16 mg PO HS 06/19/23 [History] Doxazosin [Cardura] 4 mg PO HS 06/19/23 [History] Eszopiclone 3 mg PO HS 06/19/23 [History] Simvastatin [Zocor] 10 mg PO HS 06/19/23 [History] Aspirin 81 mg PO BID 30 Days #60 tab 06/24/23 [Rx] Amoxic-Pot Clav 500-125 mg [Augmentin 500-125 mg] 1 each PO BID #10 tab 06/30/23 [Rx] HYDROcodone/APAP 5-325MG [Katy 5-325] 1 each PO Q6HR PRN #60 tab 06/30/23 [Rx] Ipratropium-Albuterol Nebulize [Duoneb 0.5 mg-3 mg/3 ml Soln] 3 ml INHALATION RT-QID #100 each 06/30/23 [Rx] Metoprolol Tartrate [Lopressor] 50 mg PO BID #60 tab 06/30/23 [Rx] QUEtiapine [SEROquel] 50 mg PO HS #30 tab 06/30/23 [Rx] Follow up Appointment(s)/Referral(s): [facility] Nurse, [NON-STAFF] - Jamal Ceballos MD [Medical Doctor] - 2 Weeks None,Stated [REFERRING] - 1-2 days Jasen Shelton MD [Primary Care Provider] - 1 Week (Call the office to schedule a tele-visit with Dr. Shelton next week) Patient Instructions/Handouts: Alzheimer Disease (DC) Activity/Diet/Wound Care/Special Instructions: Orthopedic instructions: Keep operative dressing in place until follow-up in the office. May weight bear to tolerance on operative extremity with a walker, up with assistance only. Discharge Disposition: HOME WITH HOME HEALTH SERVICES Plan of Treatment: Keep Haley catheter in place until follow-up appointment appointment with Dr. Shelton Patient will need home oxygen. Patient will also need a nebulizer for home.
[2023-06-30 09:31] VITALS: TEMP 98.5
[2023-06-30] MEDS: METOPROLOL TARTRATE 50 MG TAB PO SCH (09:33)
[2023-06-30] MEDS: HEPARIN SODIUM,PORCINE 5,000 UNIT/ML 1 ML VIAL SQ SCH (09:33)
[2023-06-30] MEDS: NICOTINE 14MG/24HR PATCH TRANSDERM SCH (09:33)
[2023-06-30] MEDS: ASPIRIN 81 MG PO SCH (09:33)
[2023-06-30] MEDS: PANTOPRAZOLE 40 MG/10 ML VIAL IVP SCH (09:33)
[2023-06-30] MEDS: AMOXIC-POT CLAV 500-125 MG 1 EACH TAB PO SCH (09:34)
[2023-06-30] MEDS: NYSTATIN 100,000 UNIT/ML SUSP 500,000 UNIT/5 ML CUP PO SCH ×2 (09:34→13:58)
[2023-06-30] MEDS: IPRATROPIUM-ALBUTEROL 3 ML NEB INHALATION SCH ×3 (10:41→14:45)
[2023-06-30 11:20] VITALS: BP 98/54; RESP 16
--- NOTE | 2023-06-30 11:45 | P.PN ---
Subjective Progress Note Date: 06/30/23 Principal diagnosis: Left hip fracture, aspiration. Evaluated today on 06/24/2023, patient is now postoperative day #3. Patient is confused but denies any shortness of breath denies any chest pain and denies any cough or wheezing denies any nausea vomiting or abdominal pain. A sitter is at bedside, patient refuses to eat his breakfast today. His chest x-ray is showing worsening atelectasis and possibly small bilateral pleural effusions clinically the patient is dry and dehydrated, he does have extremely dry mucous membranes hence I would hold on giving him any Lasix. Remains on 4 L nasal cannula with marginal oxygen saturations. CBC today is relatively unremarkable except for hemoglobin of 8.3 WBC count is normal,renal profile is normal. All his meds were reviewed. Reevaluated today on 06/25/2023, he is now postoperative day #4. Remains confused, but does not seem to be in distress, on 2 L nasal cannula with O2 saturation 93%, patient has some difficulty clearing his secretions, when asked to cough, the patient will cough but unable to clear any secretions and he seems to be significantly congested. His pro-calcitonin level came back elevated and considering his clinical findings, considering his chest x-ray findings, I am recommending that the patient goes now on Zosyn for presumptive pneumonia involving the lower lobes. Patient also received diuretics for his elevated BNP level which is 10,900 yesterday Reevaluated today on 06/26/2023, patient is now postoperative day #5, remains confused, continues to have difficulty with clearing his secretions, he does cough but unable to clear his secretions on his own. Maintained on 4 L nasal cannula, O2 sats is 94%. Labs today showed WBC count of 8.9 hemoglobin 9.3 sodium is 146 BUN is 22 creatinine 1.06, pro-calcitonin 2 days ago was 0.23 and he also had elevated BNP hence we recommended diuretics and recommended empiric antibioticsZosyn Reevaluated today on 06/27/2023, patient is now postoperative day #6 basically about the same, no change in mental status, no changes in difficulty clearing secretions, remains on 4 L nasal cannula, chest x-ray showed small bilateral pleural effusions and atelectasis, hence I recommended a dose of Lasix 20 mg IV push 1 today. Patient was seen by neurology for mental status change and delirium, and felt that the patient has metabolic encephalopathy. Patient was reevaluated today on 06/28/2023, he is now postoperative day #7 basically again about the same, presently confused, not in distress, his FiO2 was titrated down to 3 L nasal cannula with O2 sats of 95% continues to receive diuretics and I believe the diuretics seem to be helping. We'll give her more Lasix today, and will have a follow-up chest x-ray in a.m. CBC is relatively normal basic metabolic profile is normal renal profile is normal Progress note dated 06/29/2023. Postoperative day #8, status post repair of a left hip fracture. The patient's currently on 3 L of oxygen. The patient's getting saline at 20 mL an hour. The patient's pro-calcitonin level was 0.23. The patient remains on Augmentin. The patient was thought to have developed an aspiration pneumonia. No new labs today. Labs from June 28 have been reviewed. Blood cultures are currently negative. Chest x-ray is relatively stable is consistent with bilateral infiltrates, and small pleural effusions. Progress note dated 06/30/2023. Postop day #9, status post repair of the left hip fracture. Currently, the patient is seen in room 354. He is getting saline at 20 mL an hour, and oxygen by nasal cannula at 4 L. Labs today include a white count of 9.7, hemoglobin 8.6, hematocrit 26.7, and a platelet count of 389,000. Sodium 138, potassium 4.2, chlorides 105, CO2 31, BUN 20, and creatinine 1.06. Blood cultures are negative. Chest x-ray shows stable bilateral infiltrates. Objective - Vital Signs Vital signs: Vital Signs Temp 98.5 F 06/30/23 09:31 Pulse 69 06/30/23 11:20 Resp 16 06/30/23 11:20 BP 98/54 06/30/23 11:20 Pulse Ox 97 06/30/23 11:20 FiO2 Intake & Output 06/29/23 06/30/23 06/30/23 18:59 06:59 18:59 Intake Total 1140 150 480 Output Total 825 225 750 Balance 315 -75 -270 Weight 58.967 kg Intake: Oral 1140 150 480 Output: Urine 825 225 750 Uretheral (Haley) 550 Other: Voiding Method Indwelling Catheter Indwelling Catheter # Bowel Movements 2 - Exam No acute distress, confused, currently on 4 L. HEENT examination is grossly unremarkable. Neck supple. Full range of motion. No adenopathy thyromegaly or neck vein distention. Cardiovascular examination reveals regular rhythm rate. S1-S2 normal. No S3 or S4. No discernible murmur noted. Heart sounds are distant. Heart rate 80 bpm. Lungs reveal scattered bilateral rhonchi, few scattered crackles. Breath sounds equal bilaterally. No wheezes. Saturations are 97% on 4 L Abdomen is soft, with bowel sounds. No masses or tenderness. Extremities are intact. No cyanosis clubbing or edema. Skin is without rash or lesion. Neurologic examination is difficult to evaluate. The patient appears confused. - Labs CBC & Chem 7: 06/30/23 06:22 06/30/23 06:22 Labs: Abnormal Lab Results - Last 24 Hours (Table) 06/30/23 06/30/23 Range/Units 06:22 06:22 RBC 2.85 L (4.30-5.90) m/uL Hgb 8.6 L (13.0-17.5) gm/dL Hct 26.7 L (39.0-53.0) % Carbon Dioxide 31 H (22-30) mmol/L Calcium 7.9 L (8.4-10.2) mg/dL Alkaline Phosphatase 25 L (38-126) U/L Total Protein 4.6 L (6.3-8.2) g/dL Albumin 2.3 L (3.5-5.0) g/dL Assessment and Plan Assessment: S/P direct anterior left hip hemiarthroplasty, postop day #9. Acute hypoxemic respiratory failure, secondary to COPD/pneumonia. History of underlying COPD. History of dementia. Essential hypertension. Dyslipidemia. Chronic degenerative joint disease. Acute diastolic congestive heart failure. Plan: Plan dated 06/29/2023. The patient is being evaluated for possible placement at a local skilled nursing. Additional recommendations and suggestions are forthcoming. The patient remains on Augmentin, and had his last pro-calcitonin level measured at 0.23. The patient remains on 3 L of oxygen, and saline at 20 mL an hour. Labs, x-rays, and medications are all reviewed. Prognosis is certainly guarded. Family member in the patient's room, at the patient's bedside. Plan dated 06/30/2023. The patient is seen today in room 354. Apparently, according to the business planner, the plan is for the patient to go home, with home care. They will have to arrange for home oxygen. She's currently on 4 L. Labs, x-rays, and medications are reviewed. The patient remains on Augmentin, for suspected aspiration pneumonia. The patient's overall prognosis remains very guarded. Time with Patient: Less than 30
[2023-06-30 14:57] VITALS: PULSE 78
== END 2023-06-30 17:29 | disposition home health service (06) | DRG 521 ==
LOC: EC 04:13 → 4SSUR 07:45 → 3SCARD 06-20 13:31
PROVIDERS: ADMIT Family Medicine; ATTEND Family Medicine
PROC: 0SRS019 Replacement of Left Hip Joint, Femoral Surface with Metal Synthetic Substitute, Cemented, Open Approach (ICD-10-PCS; principal; 2023-06-21 08:00)
DX: S72.012A Unspecified intracapsular fracture of left femur, initial encounter for closed fracture (principal); G93.41 Metabolic encephalopathy; I50.31 Acute diastolic (congestive) heart failure; J96.01 Acute respiratory failure with hypoxia; J69.0 Pneumonitis due to inhalation of food and vomit; J44.0 Chronic obstructive pulmonary disease with (acute) lower respiratory infection; J44.1 Chronic obstructive pulmonary disease with (acute) exacerbation; B37.0 Candidal stomatitis; I47.1 Supraventricular tachycardia; F05 Delirium due to known physiological condition; F03.911 Unspecified dementia, unspecified severity, with agitation; W17.89XA Other fall from one level to another, initial encounter; Y92.89 Other specified places as the place of occurrence of the external cause; F17.210 Nicotine dependence, cigarettes, uncomplicated; M85.88 Other specified disorders of bone density and structure, other site; S72.032A Displaced midcervical fracture of left femur, initial encounter for closed fracture; E78.5 Hyperlipidemia, unspecified; I11.0 Hypertensive heart disease with heart failure; N40.0 Benign prostatic hyperplasia without lower urinary tract symptoms; M81.0 Age-related osteoporosis without current pathological fracture; M47.816 Spondylosis without myelopathy or radiculopathy, lumbar region; M51.36 Other intervertebral disc degeneration, lumbar region; M50.30 Other cervical disc degeneration, unspecified cervical region; M41.9 Scoliosis, unspecified; E86.0 Dehydration; I49.3 Ventricular premature depolarization; I48.0 Paroxysmal atrial fibrillation; Z28.310 Unvaccinated for COVID-19; Z79.899 Other long term (current) drug therapy
CPT/HCPCS: 36415; 70450; 71045; 72100; 72125; 72170; 73501; 73502; 80048; 80053; 80320; 81003; 82550; 82607; 82746; 83735; 83880; 84145; 84443; 84484; 85025; 85027; 85610; 85730; 86850; 86900; 86901; 87040; 87449; 93005; 93306; 94640; 94760; 96365; 96366; 96368; 96375; 99285

== ENCOUNTER 2023-07-12 14:36 | Inpatient (IN) | payer MEDICARE, OTHER ==
[2023-07-12] MEDS ORDERED: ACETAMINOPHEN IV (For NPO) 1,000 MG in EMPTY BAG 1 BAG IVPB STA (15:26)
[2023-07-12 16:23] LABS: Basophils % (A) 0 %; Eosinophils # (A) 0.1 k/uL (0-0.7); Eosinophils % (A) 1 %; HCT 30.4 % (39.0-53.0); Hypochromasia Slight; Lymphocytes # (A) 0.3 k/uL (1.0-4.8); Lymphocytes % (A) 2 %; MCH 29.7 pg (25.0-35.0); MCV 89.9 fL (80.0-100.0); Mean Platelet Volume 6.9; Monocytes # (A) 0.4 k/uL (0-1.0); Monocytes % (A) 3 %; Neutrophils # (A) 13.8 k/uL (1.3-7.7); Neutrophils % (A) 94 %; Platelet Count 419 k/uL (150-450); RBC 3.38 m/uL (4.30-5.90); WBC 14.6 k/uL (3.8-10.6)
[2023-07-12 16:35] LABS: Chloride 97 mmol/L (98-107)
[2023-07-12 16:36] LABS: ALT 26 U/L (4-49); African American GFR (CKD) 77 (>60 ml/min/1.73 sqM); Albumin 3.2 g/dL (3.5-5.0); Anion Gap 5 mmol/L; Blood Urea Nitrogen 23 mg/dL (9-20); Calcium 8.3 mg/dL (8.4-10.2); Carbon Dioxide 30 mmol/L (22-30); Glucose 116 mg/dL (74-99); Non-African American GFR(CKD) 67 (>60 ml/min/1.73 sqM); Potassium 4.6 mmol/L (3.5-5.1); Sodium 132 mmol/L (137-145); Total Bilirubin 0.7 mg/dL (0.2-1.3); Total Protein 6.7 g/dL (6.3-8.2)
[2023-07-12] MEDS: SODIUM CHLORIDE 0.9% 500 ML 500 ML IV SCH ×2 (16:36→16:37)
[2023-07-12 16:37] LABS: AST 41 U/L (17-59); Alkaline Phosphatase 31 U/L (38-126)
[2023-07-12 16:47] LABS: INR 1.1 (<1.2); Prothrombin Time 11.2 sec (9.0-12.0)
[2023-07-12 16:54] LABS: Partial Thromboplastin Time 20.7 sec (22.0-30.0)
--- NOTE | 2023-07-12 17:17 | XR ---
EXAMINATION TYPE: XR chest 1V portable DATE OF EXAM: 07/12/2023 COMPARISON: 06/29/2023 HISTORY: Fever TECHNIQUE: Single frontal view of the chest is obtained. FINDINGS: There has been significant decrease in the right pleural effusion but a small right pleural effusion persists. The left pleural effusion has resolved. There is no pneumothorax. The heart size is normal. There is diffuse increased interstitial opacity which could reflect mild pulmonary vascular congestio n . There is no pneumothorax. The osseous structures are intact. IMPRESSION: Findings most consistent with mild CHF which has improved in the interval since the prio r study.
[2023-07-12] MEDS ORDERED: cefTRIAXone IN SWFI 1,000 MG/10 ML SYRINGE IVP STA (17:38)
--- NOTE | 2023-07-12 17:38 | ED ---
Fever HPI - General Chief Complaint: Fever Stated Complaint: AMS Time Seen by Provider: 07/12/23 15:08 Source: EMS Mode of arrival: EMS Limitations: altered mental status - History of Present Illness Initial Comments: 83-year-old male with past medical history of dementia, hypertension, hyperlipidemia who presents emergency Department with altered mental status. Sons are at bedside and provide history. States that the patient was extremely confused today. EMS was called and found that the patient had an extremely high temperature. Family was unaware that he had a fever. He was recently hospitalized for a fall and had hip surgery. He also had pneumonia. He was discharged home on oxygen and with the Haley catheter. He has been receiving [facility] care. They state that the patient had normal vitals when the home care nurse came to check on the patient yesterday. They deny that he has been coughing. EMS found the patient to be hypoxic with oxygen saturation in the 80s on his 4 L of oxygen. He was provided with a 500 mL bolus of fluid en route to the hospital. Patient cannot provide any history. No other alleviating, precipitating or modifying factors - Related Data Home Medications Medication Instructions Recorded Confirmed Candesartan [Atacand] 16 mg PO HS 06/19/23 07/12/23 Doxazosin [Cardura] 4 mg PO HS 06/19/23 07/12/23 Simvastatin [Zocor] 10 mg PO HS 06/19/23 07/12/23 Previous Rx's Medication Instructions Recorded Aspirin 81 mg PO BID 30 Days #60 tab 06/24/23 Ipratropium-Albuterol Nebulize 3 ml INHALATION RT-QID #100 each 06/30/23 [Duoneb 0.5 mg-3 mg/3 ml Soln] Metoprolol Tartrate [Lopressor] 50 mg PO BID #60 tab 06/30/23 Allergies Allergy/AdvReac Type Severity Reaction Status Date / Time eszopiclone [From Lunesta] AdvReac confusion, Verified 07/12/23 17:46 overly sedated. quetiapine [From Seroquel] AdvReac hallucinations, Verified 07/12/23 17:46 confusion Review of Systems ROS Statement: Those systems with pertinent positive or pertinent negative responses have been documented in the HPI. ROS Other: All systems not noted in ROS Statement are negative. Past Medical History Past Medical History: Unable to Obtain, Dementia, Hyperlipidemia, Hypertension, Prostate Disorder History of Any Multi-Drug Resistant Organisms: Unobtainable Past Surgical History: Unable to Obtain Past Psychological History: Unable to Obtain Smoking Status: Unknown if ever smoked Past Alcohol Use History: Unable to Obtain Past Drug Use History: Unable to Obtain General Exam Limitations: altered mental status General appearance: alert, lethargic Head exam: Present: atraumatic, normocephalic, normal inspection Eye exam: Present: normal appearance, PERRL, EOMI. Absent: scleral icterus, conjunctival injection, periorbital swelling ENT exam: Present: mucous membranes dry Respiratory exam: Present: normal lung sounds bilaterally. Absent: respiratory distress, wheezes, rales, rhonchi, stridor Cardiovascular Exam: Present: normal rhythm, tachycardia GI/Abdominal exam: Present: soft, normal bowel sounds. Absent: distended, tenderness, guarding, rebound, rigid Extremities exam: Present: normal inspection, full ROM, normal capillary refill. Absent: tenderness, pedal edema, joint swelling, calf tenderness Back exam: Present: other (2 bilateral sacral wounds are noted during he also has breakdown of his groin consistent with yeast) Neurological exam: Present: altered Psychiatric exam: Present: flat affect Course Vital Signs 07/12/23 07/12/23 07/12/23 14:57 15:42 18:12 Temperature 104.7 F H 103.2 F H 99.3 F Pulse Rate 105 H Pulse Rate [ Right Supine Pulse Oximetery ] Respiratory 18 Rate Blood Pressure 98/72 Blood Pressure [Right Arm Supine] O2 Sat by Pulse 94 L Oximetry 07/12/23 07/12/23 07/12/23 19:30 20:00 20:08 Temperature 100.4 F H Pulse Rate 92 Pulse Rate [ 81 Right Supine Pulse Oximetery ] Respiratory 18 Rate Blood Pressure 92/48 89/43 Blood Pressure 114/52 [Right Arm Supine] O2 Sat by Pulse 93 L 95 93 L Oximetry 07/12/23 07/12/23 07/12/23 20:53 21:23 21:38 Temperature 100.1 F H Pulse Rate Pulse Rate [ Right Supine Pulse Oximetery ] Respiratory Rate Blood Pressure 104/78 107/60 Blood Pressure [Right Arm Supine] O2 Sat by Pulse Oximetry 07/12/23 07/12/23 21:46 22:12 Temperature Pulse Rate Pulse Rate [ Right Supine Pulse Oximetery ] Respiratory Rate Blood Pressure 111/51 110/53 Blood Pressure [Right Arm Supine] O2 Sat by Pulse Oximetry Medical Decision Making - Medical Decision Making Was pt. sent in by a medical professional or institution (, ANA, DISASTER RECOVERY CONSULTANT, urgent care, hospital, or senior living...) When possible be specific @ -No Did you speak to anyone other than the patient for history (EMS, parent, family, police, friend...)? What history was obtained from this source @ -I spoke with EMS and the patient's children Did you review nursing and triage notes (agree or disagree)? Why? @ -I reviewed and agree with nursing and triage notes Were old charts reviewed (outside hosp., previous admission, EMS record, old EKG, old radiological studies, urgent care reports/EKG's, senior living records)? Report findings @ -I reviewed the patient's recent discharge summary Differential Diagnosis (chest pain, altered mental status, abdominal pain women, abdominal pain men, vaginal bleeding, weakness, fever, dyspnea, syncope, headache, dizziness, GI bleed, back pain, seizure, CVA, palpatations, mental health, musculoskeletal)? @ -Differential Fever: Pneumonia, viral URI, endocarditis, myocarditis, pericarditis, otitis, sinusitis, peritonsillar Abscess, retropharyngeal Abscess, epiglottitis, peritonitis, appendicitis, Aliya cystitis, diverticulitis, hepatitis, colitis, UTI, PID, TOA, pyelonephritis, prostatitis, epididymitis, meningitis, encephalitis, pulmonary embolism, CVA, thyroid storm, pancreatitis, adrenal crisis, cavernous sinus thrombosis, this is not meant to be an all-inclusive list. EKG interpreted by me (3pts min.). @ -Yes and demonstrates sinus tachycardia with a rate of 100. FL interval 132. QRS 82. QTC 399. No acute ST segment elevations or depressions X-rays interpreted by me (1pt min.). @ -Yes and demonstrates pulmonary vascular congestion which has improved from last chest x-ray CT interpreted by me (1pt min.). @ -Yes and demonstrates no acute intracranial process U/S interpreted by me (1pt. min.). @ -None done What testing was considered but not performed or refused? (CT, X-rays, U/S, labs)? Why? @ -None What meds were considered but not given or refused? Why? @ -None Did you discuss the management of the patient with other professionals (professionals i.e. , PA, DISASTER RECOVERY CONSULTANT, lab, RT, psych nurse, social services, shrimp header, teacher, business practices officer, foster care case manager)? Give summary @ -I spoke with Sharif from [facility] who agreed to admit the patient Was smoking cessation discussed for >3mins.? @ -No Was critical care preformed (if so, how long)? @ -No Were there social determinants of health that impacted care today? How? (Homelessness, low income, unemployed, alcoholism, drug addiction, transportation, low edu. Level, literacy, decrease access to med. care, senior living, rehab)? @ -No Was there de-escalation of care discussed even if they declined (Discuss DNR or withdrawal of care, Hospice)? DNR status @ -No What co-morbidities impacted this encounter? (DM, HTN, Smoking, COPD, CAD, Cancer, CVA, ARF, Chemo, Hep., AIDS, mental health diagnosis, sleep apnea, morbid obesity)? @ -Dementia, urinary retention with Haley Was patient admitted / discharged? Hospital course, mention meds given and route, prescriptions, significant lab abnormalities, going to OR and other pertinent info. @ -Upon arrival patient was placed into room 8. Thorough history and physical exam was performed. IV access was established. He does have history of congestive heart failure and presents hypoxic on his normal oxygen. Because of this, he is given a 500 bolus and started on 130 mL per hour. I reviewed her studies are conducted including a lactic and blood cultures. Patient's Haley catheter is changed and we do obtain a urine sample which does demonstrate possibly UTI. Source of infection is identified at 1906 a possible uti. He had already been given 1 g of Rocephin. Chest x-ray demonstrates pulmonary vascular congestion which is improved. No pneumonia. CT of the brain demonstrates no acute intracranial process. Patient will be admitted for antibiotics, fever control and fluids. Patient is not given a 30 mL per KG fluid bolus as his chest x-ray does demonstrate pulmonary vascular congestion. Son at bedside was agreeable to this. Spoke with Sharif from [facility] who agreed to admit the patient. He remained in stable condition awaiting a bed on the floor Undiagnosed new problem with uncertain prognosis? @ -Yes Drug Therapy requiring intensive monitoring for toxicity (Heparin, Nitro, Insulin, Cardizem)? @ -No Were any procedures done? @ -No Diagnosis/symptom? @ -Acute encephalopathy, acute UTI with sepsis, pyrexia, tachycardia Acute, or Chronic, or Acute on Chronic? @ -Acute Uncomplicated (without systemic symptoms) or Complicated (systemic symptoms)? @ -complicated Side effects of treatment? @ -No Exacerbation, Progression, or Severe Exacerbation? @ -No Poses a threat to life or bodily function? How? (Chest pain, [place], [place], pneumonia, PE, COPD, DKA, ARF, appy, cholecystitis, CVA, Diverticulitis, Homicidal, Suicidal, threat to staff... and all critical care pts) @ -yes, patient has sepsis from uti - Lab Data Result diagrams: 07/12/23 15:49 07/12/23 15:49 Lab Results 07/12/23 07/12/23 07/12/23 Range/Units 15:49 15:49 15:49 WBC 14.6 H (3.8-10.6) k/uL RBC 3.38 L (4.30-5.90) m/uL Hgb 10.0 L (13.0-17.5) gm/dL Hct 30.4 L (39.0-53.0) % MCV 89.9 (80.0-100.0) fL MCH 29.7 (25.0-35.0) pg MCHC 33.0 (31.0-37.0) g/dL RDW 13.0 (11.5-15.5) % Plt Count 419 (150-450) k/uL MPV 6.9 Neutrophils % 94 % Lymphocytes % 2 % Monocytes % 3 % Eosinophils % 1 % Basophils % 0 % Neutrophils # 13.8 H (1.3-7.7) k/uL Lymphocytes # 0.3 L (1.0-4.8) k/uL Monocytes # 0.4 (0-1.0) k/uL Eosinophils # 0.1 (0-0.7) k/uL Basophils # 0.0 (0-0.2) k/uL Hypochromasia Slight PT (9.0-12.0) sec INR (<1.2) APTT (22.0-30.0) sec Sodium 132 L (137-145) mmol/L Potassium 4.6 (3.5-5.1) mmol/L Chloride 97 L (98-107) mmol/L Carbon Dioxide 30 (22-30) mmol/L Anion Gap 5 mmol/L BUN 23 H (9-20) mg/dL Creatinine 1.03 (0.66-1.25) mg/dL Est GFR (CKD-EPI)AfAm 77 (>60 ml/min/1.73 sqM) Est GFR (CKD-EPI)NonAf 67 (>60 ml/min/1.73 sqM) Glucose 116 H (74-99) mg/dL Plasma Lactic Acid Aayush (0.7-2.0) mmol/L Calcium 8.3 L (8.4-10.2) mg/dL Total Bilirubin 0.7 (0.2-1.3) mg/dL AST 41 (17-59) U/L ALT 26 (4-49) U/L Alkaline Phosphatase 31 L (38-126) U/L Total Protein 6.7 (6.3-8.2) g/dL Albumin 3.2 L (3.5-5.0) g/dL Urine Color Yellow Urine Appearance Turbid (Clear) Urine pH 5.5 (5.0-8.0) Ur Specific [place] 1.025 (1.001-1.035) Urine Protein 2+ H (Negative) Urine Glucose (UA) Negative (Negative) Urine Ketones Negative (Negative) Urine Blood Large H (Negative) Urine Nitrite Negative (Negative) Urine Bilirubin Negative (Negative) Urine Urobilinogen <2.0 (<2.0) mg/dL Ur Leukocyte Esterase Large H (Negative) Urine RBC >182 H (0-5) /hpf Urine WBC >182 H (0-5) /hpf Ur Squamous Epith Cells 7 H (0-4) /hpf Urine Bacteria Few H (None) /hpf Urine Mucus Few H (None) /hpf Influenza Type A (PCR) (Not Detectd) Influenza Type B (PCR) (Not Detectd) RSV (PCR) (Not Detectd) SARS-CoV-2 (PCR) (Not Detectd) 07/12/23 07/12/23 07/12/23 Range/Units 15:49 15:49 15:49 WBC (3.8-10.6) k/uL RBC (4.30-5.90) m/uL Hgb (13.0-17.5) gm/dL Hct (39.0-53.0) % MCV (80.0-100.0) fL MCH (25.0-35.0) pg MCHC (31.0-37.0) g/dL RDW (11.5-15.5) % Plt Count (150-450) k/uL MPV Neutrophils % % Lymphocytes % % Monocytes % % Eosinophils % % Basophils % % Neutrophils # (1.3-7.7) k/uL Lymphocytes # (1.0-4.8) k/uL Monocytes # (0-1.0) k/uL Eosinophils # (0-0.7) k/uL Basophils # (0-0.2) k/uL Hypochromasia PT 11.2 (9.0-12.0) sec INR 1.1 (<1.2) APTT 20.7 L (22.0-30.0) sec Sodium (137-145) mmol/L Potassium (3.5-5.1) mmol/L Chloride (98-107) mmol/L Carbon Dioxide (22-30) mmol/L Anion Gap mmol/L BUN (9-20) mg/dL Creatinine (0.66-1.25) mg/dL Est GFR (CKD-EPI)AfAm (>60 ml/min/1.73 sqM) Est GFR (CKD-EPI)NonAf (>60 ml/min/1.73 sqM) Glucose (74-99) mg/dL Plasma Lactic Acid Aayush 1.8 (0.7-2.0) mmol/L Calcium (8.4-10.2) mg/dL Total Bilirubin (0.2-1.3) mg/dL AST (17-59) U/L ALT (4-49) U/L Alkaline Phosphatase (38-126) U/L Total Protein (6.3-8.2) g/dL Albumin (3.5-5.0) g/dL Urine Color Urine Appearance (Clear) Urine pH (5.0-8.0) Ur Specific [place] (1.001-1.035) Urine Protein (Negative) Urine Glucose (UA) (Negative) Urine Ketones (Negative) Urine Blood (Negative) Urine Nitrite (Negative) Urine Bilirubin (Negative) Urine Urobilinogen (<2.0) mg/dL Ur Leukocyte Esterase (Negative) Urine RBC (0-5) /hpf Urine WBC (0-5) /hpf Ur Squamous Epith Cells (0-4) /hpf Urine Bacteria (None) /hpf Urine Mucus (None) /hpf Influenza Type A (PCR) Not Detected (Not Detectd) Influenza Type B (PCR) Not Detected (Not Detectd) RSV (PCR) Not Detected (Not Detectd) SARS-CoV-2 (PCR) Not Detected (Not Detectd) Disposition Clinical Impression: Encephalopathy acute, Pyrexia, UTI (urinary tract infection), Tachycardia Disposition: ADMITTED IP TO THIS HOSP Condition: Serious Is patient prescribed a controlled substance at d/c from ED?: No Time of Disposition: 18:26 Decision to Admit Reason: Admit from EC Decision Date: 07/12/23 Decision Time: 18:26
[2023-07-12] MEDS: SODIUM CHLORIDE 0.9% 1,000 ML IV SCH (17:46)
[2023-07-12] MEDS: NYSTATIN 100,000 UNIT/GM POWD 15 GM TOPICAL SCH ×2 (17:47→21:36)
--- NOTE | 2023-07-12 17:48 | CT ---
EXAMINATION TYPE: CT brain gabo mead con DATE OF EXAM: 07/12/2023 COMPARISON: 06/19/2023 HISTORY: 1265.4 CT DLP: AMS mGycm Automated exposure control for dose reduction was used. TECHNIQUE: CT scan of the head and cervical spine are performed without contrast. FINDINGS: Head CT: The ventricles, basal cisterns and sulci over convexities are within normal limits for the patient's age and there is no mass effect or shift of midline structures. There is no acute intra or extra-axial hemorrhage. There are tiny remote lacunar infarcts in the left basal ganglia. The intraorbital contents appear normal and symmetric. There is mild acute inflammation and chronic inflammation of the left maxillary sinus and left spheno id sinus. The mastoid air cells are well aerated. 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 There is anterior and interbod y fusion at the C5-C6, and C6-7 levels. There is slight anterolisthesis of C3 3 on C4 and C7 on T1. There is mild degenerative disease at the C C4 and C4-5 levels. There is no acute fracture or subluxation. There is no bony encroachment of the cervical canal. IMPRESSION: 1. There is no acute fracture or dislocation evident in the cervical spine. Degenerative changes and postsurgical changes as described above. 2. No acute intracranial hemorrhage, mass effect, or midline shift is seen. Tiny remote lacunar infar cts in left basal ganglia.
[2023-07-12] MEDS ORDERED: NALOXONE 0.4 MG/ML 1 ML VIAL IV PRN (18:26)
[2023-07-12 18:48] LABS: Appearance,Urine Turbid (Clear); Bacteria,Urine Few /hpf; Bilirubin,Urine Negative (Negative); Blood,Urine Large (Negative); Glucose,Urine (UA) Negative (Negative); Ketones,Urine Negative (Negative); Leukocyte Esterase,Urine Large (Negative); Mucus,Urine Few /hpf; Nitrite,Urine Negative (Negative); PH, Urine 5.5 (5.0-8.0); Protein,Urine 2+ (Negative); RBC,Urine >182 /hpf (0-5); Squamous Epithelial Cell,Urine 7 /hpf (0-4); Urobilinogen,Urine <2.0 mg/dL (<2.0); WBC,Urine >182 /hpf (0-5)
[2023-07-12 19:06] LABS: Color,Urine Yellow; Specific Gravity,Urine 1.025 (1.001-1.035)
[2023-07-12] MEDS ORDERED: IBUPROFEN 400 MG TAB PO PRN (19:14)
[2023-07-12] MEDS ORDERED: ACETAMINOPHEN TAB 325 MG TAB PO PRN (19:14)
[2023-07-12] MEDS ORDERED: SODIUM CHLORIDE 0.9% 500 ML 500 ML IV ONE (20:24)
[2023-07-13] MEDS: SODIUM CHLORIDE 0.9% 1,000 ML IV SCH ×4 (02:38→21:32)
--- NOTE | 2023-07-13 09:16 | P.HPIM ---
History of Present Illness H&P Date: 07/13/23 Chief Complaint: Altered mental status This is an 83-year-old male who presented to the emergency department with complaints of altered mental status. He had a recent admission for a fall and had hip surgery. Family decided to take him home as opposed to going to rehab. Patient has some urinary retention on last admission and required a Haley catheter. Haley catheter was supposed to be reevaluated at Hospital follow-up appointment with Dr. Shelton via telemedicine and patient's family did not answer for that visit. UTI found on admission, Haley catheter still in place. Other medical history as noted below. Review of Systems ROS unobtainable: due to mental status Past Medical History Past Medical History: Unable to Obtain, Dementia, Hyperlipidemia, Hypertension, Prostate Disorder History of Any Multi-Drug Resistant Organisms: Unobtainable Past Surgical History: Unable to Obtain Past Psychological History: Unable to Obtain Smoking Status: Unknown if ever smoked Past Alcohol Use History: Unable to Obtain Past Drug Use History: Unable to Obtain Medications and Allergies Home Medications Medication Instructions Recorded Confirmed Type Candesartan [Atacand] 16 mg PO HS 06/19/23 07/12/23 History Doxazosin [Cardura] 4 mg PO HS 06/19/23 07/12/23 History Simvastatin [Zocor] 10 mg PO HS 06/19/23 07/12/23 History Aspirin 81 mg PO BID 30 Days #60 tab 06/24/23 07/12/23 Rx Ipratropium-Albuterol Nebulize 3 ml INHALATION RT-QID #100 each 06/30/23 07/12/23 Rx [Duoneb 0.5 mg-3 mg/3 ml Soln] Metoprolol Tartrate [Lopressor] 50 mg PO BID #60 tab 06/30/23 07/12/23 Rx Allergies Allergy/AdvReac Type Severity Reaction Status Date / Time eszopiclone [From Lunesta] AdvReac confusion, Verified 07/12/23 17:46 overly sedated. quetiapine [From Seroquel] AdvReac hallucinations, Verified 07/12/23 17:46 confusion Physical Exam Vitals: Vital Signs Temp Pulse Pulse Resp BP BP Pulse Ox 07/13/23 08:56 98.6 F 81 18 105/66 97 07/12/23 22:12 110/53 07/12/23 21:46 111/51 07/12/23 21:38 100.1 F H 07/12/23 21:23 107/60 07/12/23 20:53 104/78 07/12/23 20:08 92 89/43 93 L 07/12/23 20:00 100.4 F H 81 18 114/52 95 07/12/23 19:30 92/48 93 L 07/12/23 18:12 99.3 F 07/12/23 15:42 103.2 F H 07/12/23 14:57 104.7 F H 105 H 18 98/72 94 L Intake and Output 07/12/23 07/13/23 07/13/23 22:59 06:59 14:59 Output Total 100 Balance -100 Output: Urine 100 Other: Voiding Method Indwelling Catheter - Constitutional General appearance: cooperative, no acute distress - EENT Eyes: PERRLA - Neck Neck: no lymphadenopathy, normal ROM, no rigidity - Respiratory Respiratory: bilateral: CTA - Cardiovascular Rhythm: regular Heart sounds: normal: S1, S2 - Gastrointestinal General gastrointestinal: soft, no tenderness - Musculoskeletal Musculoskeletal: generalized weakness - Psychiatric Alert to person Results CBC & Chem 7: 07/12/23 15:49 07/12/23 15:49 Labs: Abnormal Lab Results - Last 24 Hours (Table) 07/12/23 07/12/23 07/12/23 Range/Units 15:49 15:49 15:49 WBC 14.6 H (3.8-10.6) k/uL RBC 3.38 L (4.30-5.90) m/uL Hgb 10.0 L (13.0-17.5) gm/dL Hct 30.4 L (39.0-53.0) % Neutrophils # 13.8 H (1.3-7.7) k/uL Lymphocytes # 0.3 L (1.0-4.8) k/uL APTT (22.0-30.0) sec Sodium 132 L (137-145) mmol/L Chloride 97 L (98-107) mmol/L BUN 23 H (9-20) mg/dL Glucose 116 H (74-99) mg/dL Calcium 8.3 L (8.4-10.2) mg/dL Alkaline Phosphatase 31 L (38-126) U/L Albumin 3.2 L (3.5-5.0) g/dL Urine Protein 2+ H (Negative) Urine Blood Large H (Negative) Ur Leukocyte Esterase Large H (Negative) Urine RBC >182 H (0-5) /hpf Urine WBC >182 H (0-5) /hpf Ur Squamous Epith Cells 7 H (0-4) /hpf Urine Bacteria Few H (None) /hpf Urine Mucus Few H (None) /hpf 07/12/23 Range/Units 15:49 WBC (3.8-10.6) k/uL RBC (4.30-5.90) m/uL Hgb (13.0-17.5) gm/dL Hct (39.0-53.0) % Neutrophils # (1.3-7.7) k/uL Lymphocytes # (1.0-4.8) k/uL APTT 20.7 L (22.0-30.0) sec Sodium (137-145) mmol/L Chloride (98-107) mmol/L BUN (9-20) mg/dL Glucose (74-99) mg/dL Calcium (8.4-10.2) mg/dL Alkaline Phosphatase (38-126) U/L Albumin (3.5-5.0) g/dL Urine Protein (Negative) Urine Blood (Negative) Ur Leukocyte Esterase (Negative) Urine RBC (0-5) /hpf Urine WBC (0-5) /hpf Ur Squamous Epith Cells (0-4) /hpf Urine Bacteria (None) /hpf Urine Mucus (None) /hpf Assessment and Plan (1) UTI (urinary tract infection) Current Visit: Yes Status: Acute Code(s): N39.0 - URINARY TRACT INFECTION, SITE NOT SPECIFIED SNOMED Code(s): 38515312 (2) Encephalopathy acute Current Visit: Yes Status: Acute Code(s): G93.40 - ENCEPHALOPATHY, UNSPECIFIED SNOMED Code(s): 78515381 (3) Tachycardia Current Visit: Yes Status: Acute Code(s): R00.0 - TACHYCARDIA, UNSPECIFIED SNOMED Code(s): 0184797 (4) Confusion Current Visit: No Status: Acute Code(s): R41.0 - DISORIENTATION, UNSPECIFIED SNOMED Code(s): 738099194 (5) Hypoxia Current Visit: No Status: Acute Code(s): R09.02 - HYPOXEMIA SNOMED Code(s): 253707228 Plan: Continue Haley catheter today, possibly discontinue in the morning. Continue Rocephin Medications have been reordered Check CBC and CMP in the morning. Patient seen and evaluated by nurse practitioner, physician in agreement with plan
[2023-07-13] MEDS: IPRATROPIUM-ALBUTEROL 3 ML NEB INHALATION SCH ×4 (09:35→22:07)
[2023-07-13] MEDS: ASPIRIN 81 MG PO SCH ×2 (09:38→21:24)
[2023-07-13] MEDS: NYSTATIN 100,000 UNIT/GM POWD 15 GM TOPICAL SCH ×3 (09:39→21:30)
[2023-07-13] MEDS: METOPROLOL TARTRATE 50 MG TAB PO SCH ×2 (09:39→21:31)
[2023-07-13 11:08] LABS: Basophils # (A) 0.02 X 10*3/uL (0.00-0.10); Basophils % (A) 0.1 %; Eosinophils # (A) 0 X 10*3/uL (0.04-0.35); Eosinophils % (A) 0 %; HCT 24.6 % (39.6-50.0); HGB 7.8 d/dL (13.0-17.0); Lymphocytes % (A) 4.4 %; MCH 29.7 pg (27.0-32.0); MCHC 31.7 d/dL (32.0-37.0); MCV 93.5 FL (80.0-97.0); Monocytes # (A) 1.44 X 10*3/uL (0.20-1.00); Monocytes % (A) 7.9 %; NRBC Per 100 WBC 0 X 10*3/uL (0.00-0.01); Neutrophils # (A) 15.88 X 10*3/uL (1.80-7.70); Neutrophils % (A) 86.8 %; Platelet Count 298 X 10*3/uL (140-440); RBC 2.63 X 10*6/uL (4.40-5.60); WBC 18.28 X 10*3/uL (4.50-10.00)
[2023-07-13 11:12] LABS: Blood Urea Nitrogen 19.5 mg/dL (9.0-27.0); Calcium 7.7 mg/dL (8.7-10.3); Carbon Dioxide 25.9 mmol/L (21.6-31.8); Chloride 104 mmol/L (96-109); Glucose 104 mg/dL (70-110); Potassium 4.7 mmol/L (3.5-5.5); Sodium 138 mmol/L (135-145)
[2023-07-13] MEDS ORDERED: LOSARTAN 50 MG TAB PO SCH (21:00)
[2023-07-13] MEDS: ATORVASTATIN 10 MG TAB PO SCH (21:24)
[2023-07-13] MEDS: DOXAZOSIN 4 MG TAB PO SCH (21:31)
[2023-07-14] MEDS: SODIUM CHLORIDE 0.9% 1,000 ML IV SCH ×3 (06:01→19:47)
[2023-07-14 07:14] LABS: HCT 25.2 % (39.0-53.0); Hypochromasia Moderate; MCH 29.8 pg (25.0-35.0); MCHC 31.9 g/dL (31.0-37.0); MCV 93.4 fL (80.0-100.0); Mean Platelet Volume 7.5; Platelet Count 282 k/uL (150-450); RDW 13.2 % (11.5-15.5); WBC 15.3 k/uL (3.8-10.6)
[2023-07-14 07:21] LABS: ALT 22 U/L (4-49); AST 44 U/L (17-59); African American GFR (CKD) >90 (>60 ml/min/1.73 sqM); Albumin 2.3 g/dL (3.5-5.0); Albumin/Globulin Ratio 0.8; Alkaline Phosphatase 27 U/L (38-126); Anion Gap 5 mmol/L; Blood Urea Nitrogen 21 mg/dL (9-20); Calcium 7.2 mg/dL (8.4-10.2); Carbon Dioxide 23 mmol/L (22-30); Chloride 108 mmol/L (98-107); Globulin 2.8 g/dL; Glucose 94 mg/dL (74-99); Non-African American GFR(CKD) 84 (>60 ml/min/1.73 sqM); Potassium 4.3 mmol/L (3.5-5.1); Sodium 136 mmol/L (137-145); Total Bilirubin 0.4 mg/dL (0.2-1.3); Total Protein 5.1 g/dL (6.3-8.2)
[2023-07-14] MEDS: IPRATROPIUM-ALBUTEROL 3 ML NEB INHALATION SCH ×4 (07:57→20:50)
[2023-07-14] MEDS: METOPROLOL TARTRATE 50 MG TAB PO SCH ×2 (08:23→19:47)
[2023-07-14] MEDS: NYSTATIN 100,000 UNIT/GM POWD 15 GM TOPICAL SCH ×3 (08:23→19:47)
[2023-07-14] MEDS: ASPIRIN 81 MG PO SCH ×2 (08:23→19:47)
--- NOTE | 2023-07-14 08:55 | P.PN ---
Subjective Progress Note Date: 07/14/23 Principal diagnosis: Altered mental status This is an 83-year-old male who presented to the emergency department with complaints of altered mental status. He had a recent admission for a fall and had hip surgery. Family decided to take him home as opposed to going to rehab. Patient had some urinary retention on last admission and required a Haley catheter. Haley catheter was supposed to be reevaluated a hospital follow-up appointment with Dr. Shelton via telemedicine and patient's family did not answer for that visit. UTI found on admission. 07/14/2023 Patient is awake and more alert this morning. He denies any current issues. Will discontinue Haley catheter today. We'll also order physical therapy to begin working with patient. Objective - Vital Signs Vital signs: Vital Signs Temp 98.2 F 07/14/23 07:09 Pulse 77 07/14/23 08:05 Resp 16 07/14/23 08:05 BP 121/62 07/14/23 07:09 Pulse Ox 100 07/14/23 07:57 FiO2 Intake & Output 07/13/23 07/14/23 07/14/23 18:59 06:59 18:59 Intake Total 1560 Output Total 600 310 Balance -600 1250 Weight 68.039 kg Intake: Intake, IV Titration 1560 Amount Sodium Chloride 0.9% 1, 1560 000 ml @ 130 mls/hr IV . Q7H42M [facility] Rx#:[id number] Output: Urine 600 310 Other: Voiding Method Indwelling Catheter Indwelling Catheter # Bowel Movements 1 - Constitutional General appearance: Present: cooperative, no acute distress - EENT Eyes: Present: PERRLA - Neck Neck: Present: normal ROM. Absent: lymphadenopathy, rigidity - Respiratory Respiratory: bilateral: CTA - Cardiovascular Rhythm: regular Heart sounds: normal: S1, S2 - Gastrointestinal General gastrointestinal: Present: soft. Absent: tenderness - Integumentary Integumentary: Present: normal, normal turgor - Musculoskeletal Musculoskeletal: Present: generalized weakness - Psychiatric Psychiatric: Present: A&O x's 3 - Labs CBC & Chem 7: 07/14/23 06:41 07/14/23 06:41 Labs: Abnormal Lab Results - Last 24 Hours (Table) 07/13/23 07/13/23 07/14/23 Range/Units 07:24 07:24 06:41 WBC 18.28 H 15.3 H (4.50-10.00) X 10*3/uL RBC 2.63 L 2.70 L (4.40-5.60) X 10*6/uL Hgb 7.8 L 8.0 L D (13.0-17.0) d/dL Hct 24.6 L 25.2 L (39.6-50.0) % MCHC 31.7 L (32.0-37.0) d/dL MPV 9.0 L (9.5-12.2) FL Neutrophils # 15.88 H (1.80-7.70) X 10*3/uL Lymphocytes # 0.80 L (0.90-5.00) X 10*3/uL Monocytes # 1.44 H (0.20-1.00) X 10*3/uL Eosinophils # 0 L (0.04-0.35) X 10*3/uL Sodium (137-145) mmol/L Chloride (98-107) mmol/L BUN (9-20) mg/dL Calcium 7.7 L (8.7-10.3) mg/dL Alkaline Phosphatase (38-126) U/L Total Protein (6.3-8.2) g/dL Albumin (3.5-5.0) g/dL 07/14/23 Range/Units 06:41 WBC (4.50-10.00) X 10*3/uL RBC (4.40-5.60) X 10*6/uL Hgb (13.0-17.0) d/dL Hct (39.6-50.0) % MCHC (32.0-37.0) d/dL MPV (9.5-12.2) FL Neutrophils # (1.80-7.70) X 10*3/uL Lymphocytes # (0.90-5.00) X 10*3/uL Monocytes # (0.20-1.00) X 10*3/uL Eosinophils # (0.04-0.35) X 10*3/uL Sodium 136 L (137-145) mmol/L Chloride 108 H (98-107) mmol/L BUN 21 H (9-20) mg/dL Calcium 7.2 L (8.7-10.3) mg/dL Alkaline Phosphatase 27 L (38-126) U/L Total Protein 5.1 L (6.3-8.2) g/dL Albumin 2.3 L (3.5-5.0) g/dL Microbiology - Last 24 Hours (Table) 07/12/23 15:50 Blood Culture - Preliminary Blood 07/12/23 16:05 Blood Culture - Preliminary Blood Assessment and Plan (1) UTI (urinary tract infection) Current Visit: Yes Status: Acute Code(s): N39.0 - URINARY TRACT INFECTION, SITE NOT SPECIFIED SNOMED Code(s): 42880409 (2) Encephalopathy acute Current Visit: Yes Status: Acute Code(s): G93.40 - ENCEPHALOPATHY, UNSPECIFIED SNOMED Code(s): 56129460 (3) Tachycardia Current Visit: Yes Status: Acute Code(s): R00.0 - TACHYCARDIA, UNSPECIFIED SNOMED Code(s): 3432399 (4) Confusion Current Visit: No Status: Acute Code(s): R41.0 - DISORIENTATION, UNSPECIFIED SNOMED Code(s): 543889564 (5) Hypoxia Current Visit: No Status: Acute Code(s): R09.02 - HYPOXEMIA SNOMED Code(s): 321073121 Plan: Discontinue Haley catheter Continue Rocephin Order physical therapy and occupational therapy Check CBC and CMP in the morning. Patient seen and evaluated by nurse practitioner, physician in agreement with plan
[2023-07-14 10:47] LABS: HCT 26.1 % (39.0-53.0); HGB 8.3 gm/dL (13.0-17.5); Hypochromasia Moderate; MCH 29.5 pg (25.0-35.0); MCHC 31.8 g/dL (31.0-37.0); MCV 92.5 fL (80.0-100.0); Mean Platelet Volume 7.2; Platelet Count 303 k/uL (150-450); RBC 2.82 m/uL (4.30-5.90); RDW 13.1 % (11.5-15.5); WBC 14.1 k/uL (3.8-10.6)
[2023-07-14 10:58] LABS: ALT 22 U/L (4-49); AST 42 U/L (17-59); African American GFR (CKD) >90 (>60 ml/min/1.73 sqM); Albumin 2.4 g/dL (3.5-5.0); Albumin/Globulin Ratio 0.8; Alkaline Phosphatase 30 U/L (38-126); Anion Gap 5 mmol/L; Blood Urea Nitrogen 19 mg/dL (9-20); Calcium 7.3 mg/dL (8.4-10.2); Carbon Dioxide 25 mmol/L (22-30); Chloride 109 mmol/L (98-107); Globulin 2.9 g/dL; Glucose 94 mg/dL (74-99); Non-African American GFR(CKD) 82 (>60 ml/min/1.73 sqM); Potassium 4.5 mmol/L (3.5-5.1); Sodium 139 mmol/L (137-145); Total Bilirubin 0.3 mg/dL (0.2-1.3); Total Protein 5.3 g/dL (6.3-8.2)
[2023-07-14 12:54] VITALS: BMI 22.8
--- NOTE | 2023-07-14 15:46 | CDI ---
Documentation Clarification Form Date: 07/14/2023 03:16:26 PM From: Melinda Lombardi RN, CCDS Admit Date: 07/12/2023 06:27:00 PM Patient Name: Zaire Davis Visit Number: [id number] Discharge Date: ATTENTION: The Clinical Documentation Specialists (CDI) and [facility] Coding Staff appreciate your assistance in clarifying documentation. Please respond to the clarification below the line at the bottom and electronically sign. The CDI & [facility] Coding staff will review the response and follow-up if needed. Please note: Queries are made part of the Legal Health Record. If you have any questions, please contact the author of this message via ITS. Dr. Jasen Shelton UTI is documented ED assessment and the H/P on 07/12/2023. Patient has a Haley catheter present on admission. Additional clarification regarding the etiology of the UTI is requested. History/Risk Factors: Dementia, Hyperlipidemia, Hypertension, Prostate Disorder Clinical Indicators: 83-year-old male presents emergency Department with altered mental status. He was recently hospitalized for a fall and had hip surgery. discharged home on oxygen and with the Haley catheter. 07/12 Urinalysis: Ur Leukocyte Esterase-Large H, Urine WBC >182 H 07/12 Lab results: WBC 14.6, Neutrophils 13.8 BUN 23, Cr 1.03 VS: 98/72 105 18 104.7 94% 4/l NC Treatment: Cardiac/Telemetry monitoring Rocephin 1,000 MG IVP 07/12 Rocephin 1 GM IVPB 07/14-07/15 .9NS 500ML Bolus, 1,000 ML Bolus, then 130MLS/HR 07/12 Please clarify the etiology of the UTI, if known: [ x ] Haley catheter [ ] UTI not related to catheter [ x ] Other condition, please specify ___dementia with dehydration [ ] Unable to determine (Template Last Revised: January 2021) MTDD
--- NOTE | 2023-07-14 16:11 | CDI ---
Documentation Clarification Form Date: 07/14/2023 03:47:21 PM From: Melinda Lombardi RN, CCDS Admit Date: 07/12/2023 06:27:00 PM Patient Name: Zaire Davis Visit Number: [id number] Discharge Date: ATTENTION: The Clinical Documentation Specialists (CDI) and [facility] Coding Staff appreciate your assistance in clarifying documentation. Please respond to the clarification below the line at the bottom and electronically sign. The CDI & [facility] Coding staff will review the response and follow-up if needed. Please note: Queries are made part of the Legal Health Record. If you have any questions, please contact the author of this message via ITS. Dr. Jasen Shelton The patient present with fever, altered mental status, elevated WBC, and ruled in for UTI. Based on this information and the findings below, is there an additional diagnosis that is clinically appropriate for this patient? History/Risk Factors: Dementia, Hyperlipidemia, Hypertension, Prostate Disorder Clinical Indicators: 83-year-old male presents emergency Department with altered mental status. He was recently hospitalized for a fall and had hip surgery. Discharged home on oxygen and with the Haley catheter. 07/12 Urinalysis: Ur Leukocyte Esterase-Large H, Urine WBC >182 H 07/12 Lab results: WBC 14.6, Neutrophils 13.8 BUN 23, Cr 1.03 Blood cultures: Pending, No growth after 24 hours 07/12 VS: (14:57) 98/72 105 18 104.7 94% 4/L NC 07/12 VS (20:00) 114/52 81 18 100.4 (AX) 95% 4/L NC 07/13 VS (20:00) 103/50 84 16 101.3 97 % 4/L NC Treatment: Cardiac/Telemetry monitoring Rocephin 1,000 MG IVP 07/12 Rocephin 1 GM IVPB 07/14-07/15 .9NS 500ML Bolus, 1,000 ML Bolus, then 130MLS/HR 07/12 Is there an additional diagnosis that is clinically appropriate for this patient? [ ] Sepsis, present on admission [ ] Sepsis ruled out [ x ] Other, please specify _systemic inflammatory response [ ] Unable to determine SIRS Criteria: 2 or more of the following may indicate SIRS Temperature < 96.8F (36C) or > 101.0F (38.3C) Heart Rate > 90 bpm Respiratory Rate > 20 breaths/min or PaCO2 < 32 mmHg White Blood Cell Count > 12,000 or < 4,000 cells/mm3 or > 10% bands (Template Last Reviewed: November 2022) MTDD
--- NOTE | 2023-07-14 16:29 | CDI ---
Documentation Clarification Form Date: 07/14/2023 04:14:31 PM From: Melinda Lombardi RN, CCDS Admit Date: 07/12/2023 06:27:00 PM Patient Name: Zaire Davis Visit Number: [id number] Discharge Date: ATTENTION: The Clinical Documentation Specialists (CDI) and [facility] Coding Staff appreciate your assistance in clarifying documentation. Please respond to the clarification below the line at the bottom and electronically sign. The CDI & [facility] Coding staff will review the response and follow-up if needed. Please note: Queries are made part of the Legal Health Record. If you have any questions, please contact the author of this message via ITS. Dr. Jasen Shelton Your patient has acute encephalopathy documented in the ED assessment and the H/P. Additional clarification regarding the etiology/cause of this symptom is requested. History/Risk Factors: Dementia, Hyperlipidemia, Hypertension, Prostate Disorder Clinical Indicators: 83-year-old male presents emergency Department with altered mental status. He was ruled in for UTI. 07/12Head CT: No acute intracranial hemorrhage, mass effect, or midline shift seen. 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 07/12 Urinalysis: Ur Leukocyte Esterase-Large H, Urine WBC >182 H 07/12 Lab results: WBC 14.6, Neutrophils 13.8 BUN 23, Cr 1.03 Blood cultures: Pending, No growth after 24 hours 07/12 VS: (14:57) 98/72 105 18 104.7 94% 4/l NC 07/12 VS (20:00) 114/52 81 18 100.4 (AX) 95% 4/L NC Treatment Cardiac/Telemetry monitoring Rocephin 1,000 MG IVP 07/12 Rocephin 1 GM IVPB 07/14-07/15 .9NS 500ML Bolus, 1,000 ML Bolus, then 130MLS/HR 07/12 Please clarify the etiology of the acute encephalopathy: [ x ] Acute Metabolic encephalopathy due to UTI [ ] Acute Toxic Encephalopathy due to Sepsis [ ] Other condition (please specify [ ] Unable to determine (Template Last Revised: December 2020) MTDD
[2023-07-14] MEDS: ATORVASTATIN 10 MG TAB PO SCH (19:47)
[2023-07-14] MEDS: DOXAZOSIN 4 MG TAB PO SCH (19:47)
[2023-07-15] MEDS: SODIUM CHLORIDE 0.9% 1,000 ML IV SCH (06:21)
[2023-07-15] MEDS: IPRATROPIUM-ALBUTEROL 3 ML NEB INHALATION SCH ×2 (07:53→11:22)
[2023-07-15] MEDS: METOPROLOL TARTRATE 50 MG TAB PO SCH (08:20)
[2023-07-15] MEDS: ASPIRIN 81 MG PO SCH (08:20)
[2023-07-15] MEDS: NYSTATIN 100,000 UNIT/GM POWD 15 GM TOPICAL SCH (08:21)
[2023-07-15 08:22] VITALS: BP 151/67; RESP 17; TEMP 98
--- NOTE | 2023-07-15 08:59 | P.DS ---
Providers Date of admission: 07/12/23 18:27 Attending physician: Jasen Shelton Primary care physician: Jasen Shelton Hospital Course: Social 83-year-old white male essentially admitted for altered mental status dehydration and UTI. Element of urinary retention from recent hip procedure. He has underlying history of COPD. He was treated with appropriate antibiotic therapy and Haley catheter is DC'd after appropriate hydration. The patient will be discharged in stable condition with home health to follow-up with her about 5-7 days. Gnosis is guarded secondary multiple comorbidities. Patient Condition at Discharge: Serious Plan - Discharge Summary Discharge Rx Participant: No New Discharge Prescriptions: New cefUROXime axetiL [Ceftin] 500 mg PO BID 1 Days #10 tab Nystatin 100,000 Unit/gm Powd [Mycostatin Powder] 1 applic TOPICAL TID #60 gram Continue Candesartan [Atacand] 16 mg PO HS Ipratropium-Albuterol Nebulize [Duoneb 0.5 mg-3 mg/3 ml Soln] 3 ml INHALATION RT-QID #100 each Simvastatin [Zocor] 10 mg PO HS Doxazosin [Cardura] 4 mg PO HS Aspirin 81 mg PO BID 30 Days #60 tab Metoprolol Tartrate [Lopressor] 50 mg PO BID #60 tab Discharge Medication List Candesartan [Atacand] 16 mg PO HS 06/19/23 [History] Doxazosin [Cardura] 4 mg PO HS 06/19/23 [History] Simvastatin [Zocor] 10 mg PO HS 06/19/23 [History] Aspirin 81 mg PO BID 30 Days #60 tab 06/24/23 [Rx] Ipratropium-Albuterol Nebulize [Duoneb 0.5 mg-3 mg/3 ml Soln] 3 ml INHALATION RT-QID #100 each 06/30/23 [Rx] Metoprolol Tartrate [Lopressor] 50 mg PO BID #60 tab 06/30/23 [Rx] Nystatin 100,000 Unit/gm Powd [Mycostatin Powder] 1 applic TOPICAL TID #60 gram 07/15/23 [Rx] cefUROXime axetiL [Ceftin] 500 mg PO BID 1 Days #10 tab 07/15/23 [Rx] Follow up Appointment(s)/Referral(s): [facility] Visiting Nurse, [NON-STAFF] - 1-2 Days Jasen Shelton MD [Primary Care Provider] - 1 Week Activity/Diet/Wound Care/Special Instructions: Set up ambulance transport at discharge: [phone] to patient's home. Physician certification form on the front of patient's chart. Discharge Disposition: HOME WITH HOME HEALTH SERVICES
[2023-07-15 11:34] VITALS: PULSE 72
[2023-07-15 12:43] LABS: HCT 27.1 % (39.6-50.0); HGB 8.6 d/dL (13.0-17.0); MCH 29.8 pg (27.0-32.0); MCHC 31.7 d/dL (32.0-37.0); MCV 93.8 FL (80.0-97.0); Mean Platelet Volume 9.2 FL (9.5-12.2); NRBC Per 100 WBC 0 X 10*3/uL (0.00-0.01); Platelet Count 295 X 10*3/uL (140-440); RBC 2.89 X 10*6/uL (4.40-5.60); RDW 12.9 % (11.5-14.5); WBC 12.65 X 10*3/uL (4.50-10.00)
[2023-07-15 13:28] LABS: ALT 27 U/L (10-49); AST 39 U/L (14-35); Albumin 2.8 d/dL (3.8-4.9); Albumin/Globulin Ratio 1.08 Ratio (1.60-3.17); Alkaline Phosphatase 26 U/L (41-126); BUN/Creat Ratio 20.75 Ratio (12.00-20.00); Blood Urea Nitrogen 16.6 mg/dL (9.0-27.0); Carbon Dioxide 24.5 mmol/L (21.6-31.8); Chloride 107 mmol/L (96-109); Globulin 2.6 d/dL (1.6-3.3); Glucose 107 mg/dL (70-110); Potassium 3.7 mmol/L (3.5-5.5); Sodium 141 mmol/L (135-145); Total Bilirubin 0.2 mg/dL (0.3-1.2); Total Protein 5.4 d/dL (6.2-8.2)
--- NOTE | 2023-07-16 09:40 | CDI ---
Documentation Clarification Form Date: 07/16/2023 09:09:00 AM From: Melinda Lombardi RN, CCDS Admit Date: 07/12/2023 06:27:00 PM Patient Name: Zaire Davis Visit Number: [id number] Discharge Date: 07/15/2023 12:51:00 PM ATTENTION: The Clinical Documentation Specialists (CDI) and [facility] Coding Staff appreciate your assistance in clarifying documentation. Please respond to the clarification below the line at the bottom and electronically sign. The CDI & [facility] Coding staff will review the response and follow-up if needed. Please note: Queries are made part of the Legal Health Record. If you have any questions, please contact the author of this message via ITS. Dr. Jasen Shelton Your patient has documentation of recently hospitalized for a fall and had hip surgery. Discharged home on oxygen. EMS found the patient to be hypoxic with oxygen saturation in the 80s on 4/L of oxygen. He had altered mental status. Based on this information and the findings below, is there an additional diagnosis that is clinically appropriate for this patient? History/Risk Factors: Dementia, Hyperlipidemia, Hypertension, Prostate Disorder Home oxygen: 07/12 VS: (14:57) 98/72 105 18 104.7 94% 4/L NC 07/12 VS (20:00) 114/52 81 18 100.4 (AX) 95% 4/L NC 07/13 VS (20:00) 103/50 84 16 101.3 97 % 4/L NC Clinical Indicators: [id number] present with fever confusion. He has history of COPD on home O2. He has normal lung sound bilaterally per ED assessment. 07/12 CXR: Findings most consistent with mild CHF which has improved in the interval since the prior study. Treatment: Monitor O2 Sat's titrate Duoneb 0.5Mg-3 Mg/3 ML Soln Inhalation QID Is there an additional diagnosis that is clinically appropriate for this patient? [ ] Chronic Hypoxic Respiratory Failure [ ] Acute on Chronic Hypoxic Respiratory Failure (pO2 <60 mm Hg or SpO2 <91% on room air [ x ] Other Diagnosis, please specify __COPD___ [ ] Unable to determine (Template Last Revised: January 2021) MTDD
--- NOTE | 2023-07-16 10:17 | CDI ---
Documentation Clarification Form Date: 07/16/2023 09:47:43 AM From: Melinda Lombardi RN, CCDS Admit Date: 07/12/2023 06:27:00 PM Patient Name: Zaire Davis Visit Number: [id number] Discharge Date: 07/15/2023 12:51:00 PM ATTENTION: The Clinical Documentation Specialists (CDI) and [facility] Coding Staff appreciate your assistance in clarifying documentation. Please respond to the clarification below the line at the bottom and electronically sign. The CDI & [facility] Coding staff will review the response and follow-up if needed. Please note: Queries are made part of the Legal Health Record. If you have any questions, please contact the author of this message via ITS. Dr. Jasen Shelton 07/12/23 ED back exam: (2 bilateral sacral wounds are noted during he also has breakdown of his groin consistent with yeast is documented , also by nursing Wound Care on 07/12/23. Based on this information and the findings below, is there an additional diagnosis that is clinically appropriate for this patient? History/Risk Factors: Dementia, Hyperlipidemia, Hypertension, Prostate Disorder Clinical Indicators: ED: Present: other (2 bilateral sacral wounds are noted during he also has breakdown of his groin consistent with yeast) Bilateral Buttock stage II pressure ulcer -stage 2 erythema moist Coccyx stage II pressure ulcer, Left heel pressure ulcer-unstageable, -moist thick, fragile erythema. right heel pressure [id number], thick fragile Erythema, blackened Treatment: Assist with ADL Turn and Reposition, Skin assessment. Is there an additional diagnosis that is clinically appropriate for this patient? [ x ] Bilateral Buttock stage II pressure ulcer -stage 2 erythema moist, Coccyx stage II pressure ulcer, Left heel pressure ulcer-unstageable, -moist thick, fragile erythema. Right heel pressure [id number], thick fragile Erythema, blackened, all present on admission. [ ] Other condition, please specify [ ] Unable to determine Clinical Definitions: Stage 1 Pressure Ulcer: intact skin, non-blanching redness of local area Stage 2 Pressure Ulcer: Partial thickness, loss of dermis, pink wound bed Stage 3 Pressure Ulcer: Full thickness tissue loss Stage 4 Pressure Ulcer: Full thickness tissue loss with exposed bone, tendon, or muscle. Unstageable pressure ulcer: Full thickness tissue loss in which the base of the ulcer is covered by slough (yellow, rocha, chicas, green or brown) and/or eschar (rocha, brown or black) in the wound bed. (Template Last Revised: January 2021) MTDD
--- NOTE | 2023-07-17 12:33 | CDI ---
Documentation Clarification Form Date: 07/17/2023 12:25:51 PM From: Dulce Hand Phone: Admit Date: 07/12/2023 06:27:00 PM Patient Name: Zaire Davis Visit Number: [id number] Discharge Date: 07/15/2023 12:51:00 PM ATTENTION: The Clinical Documentation Specialists (CDI) and [facility] Coding Staff appreciate your assistance in clarifying documentation. Please respond to the clarification below the line at the bottom and electronically sign. The CDI & [facility] Coding staff will review the response and follow-up if needed. Please note: Queries are made part of the Legal Health Record. If you have any questions, please contact the author of this message via ITS. Dr. Jasen Shelton Your patient has the documented diagnosis of history of congestive heart failure per ED Note. Additional information regarding the type and acuity of CHF is requested. History/Risk Factors: 83yo M, UTI, encephalopathy, dementia, HLD, HTN, urine retention w Haley, COPD on O2 Clinical Indicators: VS/Pulse OX: EMS found the patient to behypoxicwith oxygen saturation in the 80s on his 4 L O2. Per ED Note 93% Chest X Ray: Findings most consistent with mildCHFwhich has improved in the interval since the priorstudy. Treatment: Pt is given a 500 bolus and started on 130 mL per hour. In your professional opinion, can you please clarify the type and acuity of CHF if known? [ ] Acute Systolic Heart Failure (reduced EF) [ x ] Chronic Systolic Heart Failure (reduced EF) [ ] Acute on Chronic Systolic Heart Failure (reduced EF) [ ] Acute Diastolic Heart Failure (preserved EF) [ ] Chronic Diastolic Heart Failure (preserved EF) [ ] Acute on Chronic Diastolic Heart Failure (preserved EF) [ ] Acute Systolic & Diastolic Heart Failure [ ] Chronic Systolic & Diastolic Heart Failure [ ] Acute on Chronic Heart Failure Systolic & Diastolic Heart Failure [ ] Other, please specify [ ] Unable to determine (Template Last Revised: December 2020) MTDD
== END 2023-07-15 12:51 | disposition home health service (06) | DRG 698 ==
LOC: EC 14:36 → 4SSUR 18:27
PROVIDERS: ADMIT Family Medicine; ATTEND Family Medicine
DX: T83.592A Infection and inflammatory reaction due to indwelling ureteral stent, initial encounter (principal); G93.41 Metabolic encephalopathy; R65.10 Systemic inflammatory response syndrome (SIRS) of non-infectious origin without acute organ dysfunction; I50.22 Chronic systolic (congestive) heart failure; L89.322 Pressure ulcer of left buttock, stage 2; L89.312 Pressure ulcer of right buttock, stage 2; L89.152 Pressure ulcer of sacral region, stage 2; L89.620 Pressure ulcer of left heel, unstageable; L89.610 Pressure ulcer of right heel, unstageable; F03.90 Unspecified dementia, unspecified severity, without behavioral disturbance, psychotic disturbance, mood disturbance, and anxiety; I11.0 Hypertensive heart disease with heart failure; J44.9 Chronic obstructive pulmonary disease, unspecified; E78.5 Hyperlipidemia, unspecified; R33.8 Other retention of urine; E86.0 Dehydration; Y73.1 Therapeutic (nonsurgical) and rehabilitative gastroenterology and urology devices associated with adverse incidents; Z20.822 Contact with and (suspected) exposure to COVID-19; Z99.81 Dependence on supplemental oxygen; Z91.81 History of falling; Z79.899 Other long term (current) drug therapy; Z79.82 Long term (current) use of aspirin; Z88.8 Allergy status to other drugs, medicaments and biological substances; Z28.310 Unvaccinated for COVID-19
CPT/HCPCS: 36415; 70450; 71045; 72125; 80048; 80053; 81001; 83605; 85025; 85027; 85610; 85730; 87040; 87636; 93005; 94640; 94760; 96361; 96374; 96375; 99285